=== PATIENT | male | born 1955 | race Caucasian/White ===

== ENCOUNTER → 2023-10-01 12:21 | Outpatient (REF) | payer MEDICARE, SELFPAY ==
[2023-10-01 13:20] LABS: % Basophils 0.1 % (0-2); % Eosinophils 0.2 % (0-6); % Lymphocytes 90.3 % (20.5-51.1); % Monocytes 2.5 % (1.7-9.3); % Neutrophils 5.9 % (42.2-75.2); Absolute Basophils 0.1 10^3/uL (0-0.2); Absolute Eosinophils 0.2 10^3/uL (0-0.7); Absolute Immature Granulocytes 0.9 10^3/uL (0-0.05); Absolute Lymphocytes 84.4 10^3/uL (1.2-3.4); Absolute Monocytes 2.3 10^3/uL (0.1-0.6); Absolute Neutrophils 5.6 10^3/uL (1.4-6.5); Hematocrit 44.3 % (39.0-52.0); Hemoglobin 14.1 g/dL (13.0-18.0); Mean Corp Hgb Conc. 31.8 g/dL (33.0-37.0); Mean Corpuscular Hgb 27.8 pg (27.0-31.0); Mean Corpuscular Volume 87.4 fL (80.0-94.0); Mean Platelet Volume 8.8 fL (7.4-10.4); Nucleated Red Blood Cells % 0 % (-); Platelet Count 110 10^3/uL (130-400); Red Blood Cell Count 5.07 10^6/uL (4.70-6.10); Red Cell Dist. Width 14.8 % (11.5-14.5); White Blood Cell Count 93.4 10^3/uL (4.8-10.8)
[2023-10-01 13:51] LABS: ALT (SGPT) 33 U/L (0-50); AST (SGOT) 29 U/L (17-59); Albumin 4.5 g/dl (3.5-5.0); Alkaline Phosphatase 74 U/L (38-126); Blood Urea Nitrogen 25 mg/dl (9-20); Calcium 9.2 mg/dl (8.4-10.2); Carbon Dioxide 28 mmol/L (22-30); Chloride 105 mmol/L (98-107); Glucose 88 mg/dl (70-99); HDL Cholesterol 44 mg/dl; LDL Cholesterol, Calculated 148 mg/dl; Potassium 4.9 mmol/L (3.5-5.1); Sodium 137 mmol/L (135-145); Total Bilirubin 0.8 mg/dl (0.2-1.3); Total Cholesterol 220 mg/dl (50-199); Total Protein 6.4 g/dl (6.3-8.2); Triglyceride 140 mg/dl (10-149); Very Low Density Lipoprotein 28 mg/dl (0-30); eGFR 59.84
[2023-10-01 14:02] LABS: Urine Albumin Trace (Neg - Trace); Urine Bilirubin Negative (Negative); Urine Character Clear (Clear); Urine Color Yellow; Urine Glucose Negative (Negative); Urine Ketone Negative (Negative); Urine Leukocyte Negative (Negative); Urine Nitrite Negative (Negative); Urine Occult Blood Trace (Negative); Urine Specific Gravity 1.015 (<1.030); Urine Urobilinogen Negative (Neg - 1+)
[2023-10-01 14:18] LABS: PSA, Total - Screen 1.46 ng/ml (0.0-4.0); Urine Red Blood Cell 0-2 /HPF (0-2); Urine Squamous Cell 0-2 /LPF (Few); Urine White Cell 30-40 /HPF (0-5)
== END ==
LOC: REG 12:21
PROVIDERS: ATTENDING PHYSICIAN Internal Medicine
DX: Z12.5 Encounter for screening for malignant neoplasm of prostate (principal); C91.10 Chronic lymphocytic leukemia of B-cell type not having achieved remission; E78.5 Hyperlipidemia, unspecified; G47.30 Sleep apnea, unspecified
CPT/HCPCS: 36415; 80053; 80061; 81003; 81015; 85025; G0103

== ENCOUNTER → 2023-10-20 14:59 | Outpatient (REF) | payer MEDICARE, SELFPAY ==
[2023-10-20 16:01] LABS: Urine Albumin Negative (Neg - Trace); Urine Bilirubin Negative (Negative); Urine Character Clear (Clear); Urine Color Yellow; Urine Glucose Negative (Negative); Urine Ketone Negative (Negative); Urine Leukocyte Negative (Negative); Urine Nitrite Negative (Negative); Urine Occult Blood Negative (Negative); Urine Specific Gravity 1.015 (<1.030); Urine Urobilinogen Negative (Neg - 1+)
[2023-10-20 16:02] LABS: % Basophils 0.1 % (0-2); % Eosinophils 0.2 % (0-6); % Immature Granulocytes 0.9 % (0-0.5); % Lymphocytes 90.2 % (20.5-51.1); % Neutrophils 5.6 % (42.2-75.2); Absolute Basophils 0.1 10^3/uL (0-0.2); Absolute Eosinophils 0.2 10^3/uL (0-0.7); Absolute Immature Granulocytes 0.8 10^3/uL (0-0.05); Absolute Lymphocytes 83.4 10^3/uL (1.2-3.4); Absolute Monocytes 2.8 10^3/uL (0.1-0.6); Absolute Neutrophils 5.2 10^3/uL (1.4-6.5); Hematocrit 42.1 % (39.0-52.0); Hemoglobin 13.6 g/dL (13.0-18.0); Mean Corp Hgb Conc. 32.3 g/dL (33.0-37.0); Mean Corpuscular Hgb 27.8 pg (27.0-31.0); Mean Corpuscular Volume 85.9 fL (80.0-94.0); Mean Platelet Volume 8.7 fL (7.4-10.4); Nucleated Red Blood Cells % 0 % (-); Platelet Count 124 10^3/uL (130-400); Red Cell Dist. Width 14.8 % (11.5-14.5)
[2023-10-20 16:31] LABS: White Blood Cell Count 92.4 10^3/uL (4.8-10.8)
== END ==
LOC: REG 14:59
PROVIDERS: ATTENDING PHYSICIAN Internal Medicine
DX: C91.10 Chronic lymphocytic leukemia of B-cell type not having achieved remission (principal); D69.6 Thrombocytopenia, unspecified; R82.81 Pyuria
CPT/HCPCS: 36415; 81003; 85025

== ENCOUNTER → 2023-12-01 11:09 | Outpatient (REF) | payer MEDICARE, SELFPAY ==
[2023-12-01 11:35] LABS: % Basophils 0.1 % (0-2); % Eosinophils 0.2 % (0-6); % Immature Granulocytes 0.7 % (0-0.5); % Monocytes 2.6 % (1.7-9.3); % Neutrophils 5.4 % (42.2-75.2); Absolute Basophils 0.1 10^3/uL (0-0.2); Absolute Eosinophils 0.2 10^3/uL (0-0.7); Absolute Immature Granulocytes 0.7 10^3/uL (0-0.05); Absolute Lymphocytes 90.5 10^3/uL (1.2-3.4); Absolute Monocytes 2.6 10^3/uL (0.1-0.6); Absolute Neutrophils 5.5 10^3/uL (1.4-6.5); Hematocrit 44.2 % (39.0-52.0); Hemoglobin 14.3 g/dL (13.0-18.0); Mean Corp Hgb Conc. 32.4 g/dL (33.0-37.0); Mean Corpuscular Hgb 27.9 pg (27.0-31.0); Mean Corpuscular Volume 86.3 fL (80.0-94.0); Mean Platelet Volume 8.4 fL (7.4-10.4); Nucleated Red Blood Cells % 0 % (-); Platelet Count 107 10^3/uL (130-400); Red Blood Cell Count 5.12 10^6/uL (4.70-6.10); Red Cell Dist. Width 14.8 % (11.5-14.5); White Blood Cell Count 99.4 10^3/uL (4.8-10.8)
[2023-12-01 13:08] LABS: LDH 180 U/L (120-246)
[2023-12-03 13:00] LABS: Alpha 1 Globulin 0.29 g/dL (0.19-0.46); Alpha 2 Globulin 0.56 g/dL (0.48-1.05); Free Kappa Light Chains,Quant 7.37 mg/L (3.30-19.40); Free Lambda Light Chains,Quant 31.86 mg/L (5.71-26.30); IgA 27 mg/dL (68-408); IgG 350 mg/dL (768-1632); IgM <10 mg/dL (35-263); Immunofixation Electrophoresis IFE Done; Kappa/Lambda Fr Light Ratio 0.23 (0.26-1.65); Total Protein-Electrophoresis 6.1 g/dL (6.3-8.2)
== END ==
LOC: REG 11:09
PROVIDERS: ATTENDING PHYSICIAN Internal Medicine Hematology & Oncology; FAMILY PHYSICIAN Internal Medicine
DX: C91.10 Chronic lymphocytic leukemia of B-cell type not having achieved remission (principal)
CPT/HCPCS: 36415; 82784; 83521; 83615; 84155; 84165; 85025; 86334

== ENCOUNTER → 2023-12-18 20:46 | Outpatient (REF) | payer MEDICARE, SELFPAY | LOC: MRI 20:46 | PROVIDERS: ATTENDING PHYSICIAN Internal Medicine; FAMILY PHYSICIAN Internal Medicine | DX: M54.32 Sciatica, left side (principal) | CPT/HCPCS: 72148 ==

== ENCOUNTER → 2024-02-11 11:42 | Outpatient (REF) | payer MEDICARE, SELFPAY ==
[2024-02-11 12:54] LABS: ALT (SGPT) 19 U/L (0-50); AST (SGOT) 25 U/L (17-59); Albumin 4.5 g/dl (3.5-5.0); Alkaline Phosphatase 92 U/L (38-126); Blood Urea Nitrogen 24 mg/dl (9-20); Calcium 9.5 mg/dl (8.4-10.2); Carbon Dioxide 29 mmol/L (22-30); Chloride 104 mmol/L (98-107); Glucose 94 mg/dl (70-99); LDH 194 U/L (120-246); Potassium 4.6 mmol/L (3.5-5.1); Sodium 140 mmol/L (135-145); Total Protein 6.2 g/dl (6.3-8.2); eGFR 54.75
[2024-02-11 18:43] LABS: % Basophils 0.1 % (0-2); % Eosinophils 0.3 % (0-6); % Immature Granulocytes 1.4 % (0-0.5); % Lymphocytes 87.7 % (20.5-51.1); % Monocytes 3.5 % (1.7-9.3); Absolute Basophils 0.1 10^3/uL (0-0.2); Absolute Eosinophils 0.3 10^3/uL (0-0.7); Absolute Immature Granulocytes 1.2 10^3/uL (0-0.05); Absolute Lymphocytes 79.9 10^3/uL (1.2-3.4); Absolute Monocytes 3.2 10^3/uL (0.1-0.6); Absolute Neutrophils 6.5 10^3/uL (1.4-6.5); Hematocrit 41.5 % (39.0-52.0); Hemoglobin 13.5 g/dL (13.0-18.0); Mean Corp Hgb Conc. 32.5 g/dL (33.0-37.0); Mean Corpuscular Hgb 27.7 pg (27.0-31.0); Mean Platelet Volume 9.3 fL (7.4-10.4); Nucleated Red Blood Cells % 0 % (-); Platelet Count 136 10^3/uL (130-400); Red Blood Cell Count 4.88 10^6/uL (4.70-6.10); Red Cell Dist. Width 14.8 % (11.5-14.5); White Blood Cell Count 91.1 10^3/uL (4.8-10.8)
== END ==
LOC: REG 11:42
PROVIDERS: ATTENDING PHYSICIAN Internal Medicine Hematology & Oncology; FAMILY PHYSICIAN Internal Medicine
DX: C91.10 Chronic lymphocytic leukemia of B-cell type not having achieved remission (principal)
CPT/HCPCS: 36415; 80053; 83615; 85025

== ENCOUNTER → 2024-03-05 10:57 | Outpatient (REF) | payer MEDICARE, SELFPAY ==
[2024-03-05 12:47] LABS: Hematocrit 42.2 % (39.0-52.0); Hemoglobin 13.7 g/dL (13.0-18.0); Mean Corp Hgb Conc. 32.5 g/dL (33.0-37.0); Mean Corpuscular Volume 86.3 fL (80.0-94.0); Mean Platelet Volume 8.8 fL (7.4-10.4); Platelet Count 95 10^3/uL (130-400); Red Blood Cell Count 4.89 10^6/uL (4.70-6.10); Red Cell Dist. Width 15.1 % (11.5-14.5)
[2024-03-05 13:26] LABS: % Basophils 0.1 % (0-2); % Eosinophils 0.2 % (0-6); % Immature Granulocytes 0.7 % (0-0.5); % Lymphocytes 91.4 % (20.5-51.1); % Monocytes 2.9 % (1.7-9.3); % Neutrophils 4.7 % (42.2-75.2); Absolute Basophils 0.1 10^3/uL (0-0.2); Absolute Eosinophils 0.2 10^3/uL (0-0.7); Absolute Immature Granulocytes 0.8 10^3/uL (0-0.05); Absolute Lymphocytes 97.3 10^3/uL (1.2-3.4); Absolute Monocytes 3.1 10^3/uL (0.1-0.6); Absolute Neutrophils 5.1 10^3/uL (1.4-6.5); Nucleated Red Blood Cells % 0 % (-); White Blood Cell Count 106.4 10^3/uL (4.8-10.8)
== END ==
LOC: REG 10:57
PROVIDERS: ATTENDING PHYSICIAN Internal Medicine Hematology & Oncology; FAMILY PHYSICIAN Internal Medicine
DX: C91.10 Chronic lymphocytic leukemia of B-cell type not having achieved remission (principal)
CPT/HCPCS: 36415; 85025

== ENCOUNTER 2024-05-31 03:49 | Inpatient (IN) | payer MEDICARE, SELFPAY ==
[2024-05-30 22:15] VITALS: BP 161/105
[2024-05-30 22:30] VITALS: BP 166/93
--- NOTE | 2024-05-30 22:50 | ED.GENMED ---
History of Present Illness
<TRACIE Carcamo - Last Filed: 05/31/24 06:08>
General
Chief Complaint: Abdominal Symptoms
Source: patient and significant other
Exam Limitations: none
Time Seen by Provider: 05/30/24 22:21
Nursing documentation reviewed up to this point in time: agreed with
History of Present Illness
History of Present Illness:
Patient is a 68yo M w/ PMH of CLL who presents to ED w/ complaint of episodes of nausea x1mo. Reports 4 episodes that are precipitated by exertion where he feels gurgling in center of epigastric region that moves up into chest, coughing, weakness,
nausea, and sweating. Reports dry heaving but denies any vomiting. These episodes last a few minutes and resolve w/ rest. States he can feel episode coming on and could push himself into one. He reports an episode Friday and again today which
prompted visit to ER. Denies fatigue and any sxs in between episodes. He flew back from [place] on Friday w/ 2 connecting flights. He reports rhinorrhea and post-nasal drip that started yesterday. He had flu shot last week.
Review of Systems
<TRACIE Carcamo - Last Filed: 05/31/24 06:08>
Review of Systems
Constitutional: Denies fever, fatigue or chills
EENT: Reports sore throat and runny nose
Respiratory: Reports cough and trouble breathing
Cardiac: Reports diaphoresis; Denies chest pain or palpitations
ABD/GI: Reports nausea; Denies abdominal pain, vomiting, diarrhea or constipated
: Denies dysuria
Musculoskeletal: Denies joint pain or muscle pain
Skin: Denies itching
Neurological: Reports weakness; Denies dizzy or headache
Phy Exam
<TRACIE Carcamo - Last Filed: 05/31/24 06:08>
General Physical Exam
General Presentation: mild distress
General age: appears stated age
General Skin: warm and dry
General Habitus: normal
General Mental: alert
Cardiovascular Exam
Cardiovascular Exam: no edema, no gallop, no murmur and tachycardia
Pulmonary Exam
Pulmonary Exam: lungs clear, chest non tender and respiratory distress (pt unable to consistently speak in full sentences)
Gastrointestinal Exam
Gastrointestinal Exam: normal bowel sounds, non tender, soft and non distended
Neurological Exam
Neurological Exam: alert, oriented x3, no motor deficits, no sensory deficits and speech normal
Musculoskeletal Exam
Musculoskeletal Exam: no edema
Course
<ST Carlos AlbertoKS - Last Filed: 05/31/24 06:08>
Orders/Labs/Results
Orders:
Orders
05/30/24 23:13
CBC/With Diff [Complete Blood Count/With Diff] Urgent
CMP [Comprehensive Metabolic Panel] Urgent
05/30/24 23:51
0.9% Sodium Chloride 1000 ml [Nss] 1,000 ml IV BOLUS
05/31/24 00:00
CT Chest Pe Study Urgent
Reason For Exam: SOB
05/31/24 00:40
IgA Urgent
IgG Urgent
IgM Urgent
LDH Urgent
Protein Electrophoresis Reflex [S] Urgent
05/31/24 01:11
COVID-19 Antigen Urgent
Source: Nasal Swab
05/31/24 01:35
Piperacillin/Tazo 4.5 Gram [Zosyn] 4.5 gram in 100 ml IV NOW
05/31/24 03:12
EKG [Electrocardiogram (*1)] Urgent
Reason for Study: Shortness of Breath
05/31/24 03:32
Admit/Transfer Patient As Directed
Co-Sign Provider:
Level of Care: Inpatient admission
Assign to:: Telemetry
Physician / Group: Jamison
Diagnosis: Chest Pain, CLL
Reason for Telemetry: Chest Pain syndromes
Date to Stop Telemetry: 06/02/24
Time to Stop Telemetry: 11:00
Reason for Hospitalization: Chest Pain, CLL
Expected length of stay greater than two midnights?: Yes
ELOS- Estimated Length of Stay in days: 3
I certify the patient meets the requirements for IP care: Yes
Code Status As Directed
Resuscitation Status: Full Code
PRN Pain Medication Management As Directed
May give lesser potent ordered pain med per pt: Yes
preference::
Protocol:: Medication orders for pain may be administered in a
manner that supports deferring to patient preference
when the pt is:
- Requesting an ordered lesser potent pain medication.
Least to most potent pain medications are defined
as: acetaminophen < NSAID < tramadol < opioids
(morphine, oxycodone, hydromorphone).
- Requesting a lesser dose of the same medication IF
ORDERED.
- Requesting a less intrusive route of administration
if both routes are prescribed by the provider (PO <
IV).
05/31/24 03:58
Troponin I Urgent
05/31/24 05:57
Complete Blood Count/No Diff IN AM
Troponin I Q6H
Acetaminophen [Tylenol] 650 mg PO Q4HPRN PRN
Albuterol Nebs [Ventolin Nebules] 2.5 mg INH R Q4HPRN PRN
Nitroglycerin Sublingual [Nitrostat (Sublingual)] 0.4 mg SL [id number] PRN
Piperacillin/Tazo 3.375 Gram [Zosyn] 3.375 gram in 50 ml IV Q6H
05/31/24 05:57
Echo 2D MMode Doppler [Echo 2D MMode Color/Doppler] Routine
Reason for Study: SOB, Chest Pain
Glycohemoglobin (HgbA1c) Routine
Activity As Directed
Activity Level: Ambulate
EKG with chest pain [ECG as needed] As Directed
ECG as needed for:: Chest Pain
I/O [Intake/ Output] As Directed
Frequency: Per unit guidelines
Pneumatic Compression Sleeves As Directed
Type: Knee high
Vital Signs As Directed
Frequency: Per unit guidelines
Weight As Directed
Frequency: Daily
Oxygen Therapy [O2 Therapy] [RESP] Routine
Titrate/Wean O2 to maintain O2 sat greater than (%): 94
DX Deep Vein Thrombosis Video Routine
05/31/24 06:00
EKG [Electrocardiogram (*1)] IN AM
Reason for Study: Chest Pain
Clear Liquid
Basic Metabolic Panel IN AM
Cardiovascular Evaluation IN AM
05/31/24 08:00
Aspirin Chewable [Low Strength Aspirin] 81 mg PO DAILY
Pantoprazole [Protonix IV] 40 mg IV BID
05/31/24 11:57
Troponin I Q6H
05/31/24 17:57
Troponin I Q6H
05/31/24 22:00
Atorvastatin [Lipitor] 40 mg PO HS
06/02/24 11:00
DC Protocol for Telemetry ONCE
Abnormal Lab Results
05/30/24 05/31/24
23:13 00:40
WBC 125.2 H* 10^3/uL
(4.8-10.8)
RDW 15.8 H %
(11.5-14.5)
Plt Count 105 L 10^3/uL
(130-400)
Abs Immat Gran (auto) 1.2 H 10^3/uL
(0-0.05)
Absolute Neuts (auto) 7.0 H 10^3/uL
(1.4-6.5)
Absolute Lymphs (auto) 113.1 H 10^3/uL
(1.2-3.4)
Absolute Monos (auto) 3.6 H 10^3/uL
(0.1-0.6)
Immature Gran % 1.0 H %
(0-0.5)
Neutrophils % 5.5 L %
(42.2-75.2)
Lymphocytes % 90.3 H %
(20.5-51.1)
BUN 32 H mg/dl
(9-20)
Glucose 104 H mg/dl
(70-99)
Total Protein 6.0 L g/dl
(6.3-8.2)
Immunoglobulin A < 50 L mg/dl
(70-400)
Immunoglobulin G < 270 L mg/dl
(700-1600)
Immunoglobulin M < 25 L mg/dl
(40-230)
05/30/24 23:13
05/30/24 23:13
Vital Signs
Initial and Last Documented VS:
Initial Vital Signs
Temp Pulse Resp BP Pulse Ox
97.8 F 113 20 161/105 88
05/30/24 22:15 05/30/24 22:15 05/30/24 22:15 05/30/24 22:15 05/30/24 22:15
Last Documented Vital Signs
Temp Pulse Resp BP Pulse Ox
97.8 F 92 23 155/88 93
05/30/24 22:15 05/31/24 05:00 05/31/24 05:00 05/31/24 04:00 05/31/24 05:00
<Jurgen Santiago, DO - Last Filed: 05/31/24 01:44>
Orders/Labs/Results
Orders:
Orders
05/30/24 23:13
CBC/With Diff [Complete Blood Count/With Diff] Urgent
CMP [Comprehensive Metabolic Panel] Urgent
05/30/24 23:51
0.9% Sodium Chloride 1000 ml [Nss] 1,000 ml IV BOLUS
05/31/24 00:00
CT Chest Pe Study Urgent
Reason For Exam: SOB
05/31/24 00:40
IgA Urgent
IgG Urgent
IgM Urgent
LDH Urgent
Protein Electrophoresis Reflex [S] Urgent
05/31/24 01:11
COVID-19 Antigen Urgent
Source: Nasal Swab
05/31/24 01:35
Piperacillin/Tazo 4.5 Gram [Zosyn] 4.5 gram in 100 ml IV NOW
05/31/24 03:12
EKG [Electrocardiogram (*1)] Urgent
Reason for Study: Shortness of Breath
05/31/24 03:32
Admit/Transfer Patient As Directed
Co-Sign Provider:
Level of Care: Inpatient admission
Assign to:: Telemetry
Physician / Group: Jamison
Diagnosis: Chest Pain, CLL
Reason for Telemetry: Chest Pain syndromes
Date to Stop Telemetry: 06/02/24
Time to Stop Telemetry: 11:00
Reason for Hospitalization: Chest Pain, CLL
Expected length of stay greater than two midnights?: Yes
ELOS- Estimated Length of Stay in days: 3
I certify the patient meets the requirements for IP care: Yes
Code Status As Directed
Resuscitation Status: Full Code
PRN Pain Medication Management As Directed
May give lesser potent ordered pain med per pt: Yes
preference::
Protocol:: Medication orders for pain may be administered in a
manner that supports deferring to patient preference
when the pt is:
- Requesting an ordered lesser potent pain medication.
Least to most potent pain medications are defined
as: acetaminophen < NSAID < tramadol < opioids
(morphine, oxycodone, hydromorphone).
- Requesting a lesser dose of the same medication IF
ORDERED.
- Requesting a less intrusive route of administration
if both routes are prescribed by the provider (PO <
IV).
05/31/24 03:58
Troponin I Urgent
05/31/24 05:57
Complete Blood Count/No Diff IN AM
Troponin I Q6H
Acetaminophen [Tylenol] 650 mg PO Q4HPRN PRN
Albuterol Nebs [Ventolin Nebules] 2.5 mg INH R Q4HPRN PRN
Nitroglycerin Sublingual [Nitrostat (Sublingual)] 0.4 mg SL [id number] PRN
Piperacillin/Tazo 3.375 Gram [Zosyn] 3.375 gram in 50 ml IV Q6H
05/31/24 05:57
Echo 2D MMode Doppler [Echo 2D MMode Color/Doppler] Routine
Reason for Study: SOB, Chest Pain
Glycohemoglobin (HgbA1c) Routine
Activity As Directed
Activity Level: Ambulate
EKG with chest pain [ECG as needed] As Directed
ECG as needed for:: Chest Pain
I/O [Intake/ Output] As Directed
Frequency: Per unit guidelines
Pneumatic Compression Sleeves As Directed
Type: Knee high
Vital Signs As Directed
Frequency: Per unit guidelines
Weight As Directed
Frequency: Daily
Oxygen Therapy [O2 Therapy] [RESP] Routine
Titrate/Wean O2 to maintain O2 sat greater than (%): 94
DX Deep Vein Thrombosis Video Routine
05/31/24 06:00
EKG [Electrocardiogram (*1)] IN AM
Reason for Study: Chest Pain
Clear Liquid
Basic Metabolic Panel IN AM
Cardiovascular Evaluation IN AM
05/31/24 08:00
Aspirin Chewable [Low Strength Aspirin] 81 mg PO DAILY
Pantoprazole [Protonix IV] 40 mg IV BID
05/31/24 11:57
Troponin I Q6H
05/31/24 17:57
Troponin I Q6H
05/31/24 22:00
Atorvastatin [Lipitor] 40 mg PO HS
06/02/24 11:00
DC Protocol for Telemetry ONCE
Abnormal Lab Results
05/30/24 05/31/24
23:13 00:40
WBC 125.2 H* 10^3/uL
(4.8-10.8)
RDW 15.8 H %
(11.5-14.5)
Plt Count 105 L 10^3/uL
(130-400)
Abs Immat Gran (auto) 1.2 H 10^3/uL
(0-0.05)
Absolute Neuts (auto) 7.0 H 10^3/uL
(1.4-6.5)
Absolute Lymphs (auto) 113.1 H 10^3/uL
(1.2-3.4)
Absolute Monos (auto) 3.6 H 10^3/uL
(0.1-0.6)
Immature Gran % 1.0 H %
(0-0.5)
Neutrophils % 5.5 L %
(42.2-75.2)
Lymphocytes % 90.3 H %
(20.5-51.1)
BUN 32 H mg/dl
(9-20)
Glucose 104 H mg/dl
(70-99)
Total Protein 6.0 L g/dl
(6.3-8.2)
Immunoglobulin A < 50 L mg/dl
(70-400)
Immunoglobulin G < 270 L mg/dl
(700-1600)
Immunoglobulin M < 25 L mg/dl
(40-230)
05/30/24 23:13
05/30/24 23:13
Vital Signs
Initial and Last Documented VS:
Initial Vital Signs
Temp Pulse Resp BP Pulse Ox
97.8 F 113 20 161/105 88
05/30/24 22:15 05/30/24 22:15 05/30/24 22:15 05/30/24 22:15 05/30/24 22:15
Last Documented Vital Signs
Temp Pulse Resp BP Pulse Ox
97.8 F 92 23 155/88 93
05/30/24 22:15 05/31/24 05:00 05/31/24 05:00 05/31/24 04:00 05/31/24 05:00
<TRACIE Carcamo - Last Filed: 05/31/24 06:08>
MDM/Problems Addressed
Differential Diagnosis Includes:
PE, arrhythmia,
<TRACIE Carcamo - Last Filed: 05/31/24 06:08>
*Critical Care Note
Total Time (30-74mins, 75-104mins- exclusive of procedures): Not Applicable
<Jurgen Santiago DO - Last Filed: 05/31/24 01:44>
Update Note
Update Note:
CTA chest with intravenous contrast, pulmonary artery protocol
Comparison exam: None
IMPRESSION:
No definite evidence of pulmonary artery embolus. Assessment for smaller peripheral pulmonary embolus moderately limited due to motion artifact.
Moderate scattered patchy groundglass opacities bilaterally most pronounced in the lung bases concerning for infectious/inflammatory process.
Mild interstitial thickening noted.
Trace right pleural fluid versus pleural thickening.
Mild mediastinal, hilar, axillary and upper abdominal adenopathy.
Moderate coronary artery disease.
Esophageal wall thickening suggests esophagitis.
Small hiatal hernia.
Partially imaged presumed hepatic cysts.
Splenomegaly. The spleen is partially imaged.
Degenerative changes spine.
ED Attending Note
<TRACIE Carcamo - Last Filed: 05/31/24 06:08>
-
Portions of this chart may have been created with voice recognition software.� Occasional wrong word or��sound alike� substitutions may have occurred due to the inherent limitations of voice recognition software.
<Jurgen Santiago DO - Last Filed: 05/31/24 01:44>
ED Attending Note
Patient seen and examined by attending physician: Yes
I performed the substantive portion of visit, reviewed & personally made and approve the management plan that is documented in note by myself or ALEENA.: Yes
ED Attending Note:
This a pleasant 60-year-old male presents to the emergency department with several weeks of nausea on exertion. Patient states that on May 13, he was walking after parking his car to meet his at a restaurant. He states that he walks 6 or
7 blocks assisted having to stop and sit down. He states that he felt nausea and 'gurgling in his epigastric region '. He proceeded his walk to the restaurant after a 5-minute break. His noted that he was diaphoretic. Patient states that he
had no point had any chest pain. Patient reports that a similar episode happened several more times including the latest being tonight. Patient has a history of CLL followed by Dr. Ross. He states that he is receiving no active treatments he was
just being monitored and has an appointment this week. On Friday, he flew in from [place], spending much of the day either in the air or in airports. He states that he had a similar episode occur. Tonight he had an episode much like before.
He was at the grocery store and had to have his to come pick him up. She brought him for evaluation. Upon arrival he states that his symptoms had resolved. 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 He states that he has no issue getting through 1 of those. Tonight his room air oxygenation is 88% so he is receiving supplemental O2. Patient was seen in conjunction with the PA student. I
have reviewed and agree with the history and treatment plan presented. On my independent physical exam, patient is awake, alert, and oriented x3 in no acute distress resting on 2 L via nasal cannula. Heart is tachycardic at 104 on the monitor.
This is confirmed with auscultation. No murmurs rubs or gallops appreciated. Lungs are clear to auscultation bilaterally wheezes rales or rhonchi present. Abdomen is soft nontender nondistended. Skin is warm and dry. Moves all 4 extremities.
Calves are negative with no Homans' sign noted.
Plan is for CT angiogram of the chest to rule out pulmonary embolus. Lab work, which I expect to have an elevated white blood cell count due to CLL.
Discharge Plan
Departure
Patient Disposition: Admit
Date of Disposition: 05/31/24
Time of Disposition: 01:44
Admit to: Telemetry
Presentation/result/management discussed w/ accepting MD/DO: Hospitalist
Patient with high blood pressure during this ER visit?: Yes
Condition: Good
Discharge Problem:
Pneumonia
Interventions
Interventions:
*Risk Screen - Suicide Last Done: 05/30/24 22:15
*General Assessment Last Done: 05/30/24 22:15
*Neglect/Abuse Screening Last Done: 05/30/24 22:15
ED- Fall Risk Assessment Last Done: 05/30/24 23:19
*ED COVID-19 Vaccine History Last Done: 05/30/24 23:03
*Nursing Disposition Last Done: 05/31/24 05:51
HE-Txtbxy-Eiljiubtqt Assessment Last Done: 05/30/24 23:19
Discharge Date and Time
Discharge Date/Time: 05/31/24 05:51
[2024-05-30 23:00] VITALS: BP 145/87
[2024-05-30 23:03] VITALS: BMI 28.6
--- NOTE | 2024-05-30 23:24 | EDRN ---
Pt flew home from [place] on 2 flights two nights ago. Pt noted cold symptoms yesterday, runny nose. Pt says he went to [facility] this evening and while there, he developed a gurgling sensation in epigastric region that went up into center of his
chest like indigestion. Pt felt weak and sweaty. Pt had urge to vomit but only dry heaved. Pt notes the sensation is gone at this time. Pt says this is the 4th time he has had these symptoms since May 15 and they have all resolved with
rest. Pt denies fever/chills/cough, cp, sob, diarrhea/constipation, urinary symptoms, dizziness. Pt noted to have low pulse ox on room air in ED and was placed on 2 lpm O2. On oxygen, pulse ox is 92-94%.
[2024-05-30 23:34] LABS: Hematocrit 41.6 % (39.0-52.0); Hemoglobin 13.8 g/dL (13.0-18.0); Mean Corp Hgb Conc. 33.2 g/dL (33.0-37.0); Mean Corpuscular Hgb 27.7 pg (27.0-31.0); Mean Corpuscular Volume 83.4 fL (80.0-94.0); Mean Platelet Volume 8.5 fL (7.4-10.4); Platelet Count 105 10^3/uL (130-400); Red Blood Cell Count 4.99 10^6/uL (4.70-6.10); Red Cell Dist. Width 15.8 % (11.5-14.5); White Blood Cell Count 125.2 10^3/uL (4.8-10.8)
[2024-05-30 23:35] LABS: Nucleated Red Blood Cells % 0.1 % (-)
[2024-05-30 23:44] LABS: ALT (SGPT) 23 U/L (0-50); AST (SGOT) 26 U/L (17-59); Albumin 4.2 g/dl (3.5-5.0); Alkaline Phosphatase 62 U/L (38-126); Blood Urea Nitrogen 32 mg/dl (9-20); Calcium 9.6 mg/dl (8.4-10.2); Carbon Dioxide 22 mmol/L (22-30); Chloride 106 mmol/L (98-107); Estimated Creatinine Clearance 59 ml/min; Glucose 104 mg/dl (70-99); Potassium 3.9 mmol/L (3.5-5.1); Sodium 140 mmol/L (135-145); eGFR > 60.00
[2024-05-31] VITALS (26 sets, daily range): BP systolic 119–163; BP diastolic 75–104; BMI 28.3
[2024-05-31] MEDS: NSS 1000 IV (00:01)
[2024-05-31 01:03] LABS: % Basophils 0.1 % (0-2); % Eosinophils 0.2 % (0-6); % Lymphocytes 90.3 % (20.5-51.1); % Monocytes 2.9 % (1.7-9.3); % Neutrophils 5.5 % (42.2-75.2); Absolute Basophils 0.1 10^3/uL (0-0.2); Absolute Eosinophils 0.2 10^3/uL (0-0.7); Absolute Immature Granulocytes 1.2 10^3/uL (0-0.05); Absolute Lymphocytes 113.1 10^3/uL (1.2-3.4); Absolute Monocytes 3.6 10^3/uL (0.1-0.6)
[2024-05-31 01:29] LABS: LDH 219 U/L (120-246)
[2024-05-31 01:30] LABS: COVID-19 Antigen Negative (Negative)
--- NOTE | 2024-05-31 01:30 | EDRN ---
Pulse ox noted to be 87% room air - asked pt to put on his O2. No sob. Pt says he probably fell asleep
[2024-05-31] MEDS: ZOSYN 100 IV (01:40)
[2024-05-31 02:04] LABS: IgA < 50 mg/dl (70-400); IgG < 270 mg/dl (700-1600); IgM < 25 mg/dl (40-230)
--- NOTE | 2024-05-31 03:39 | HPS.HSE ---
Family Physician
-
Family Physician: Duy Bustillo
Chief Complaint
-
Chest Discomfort, Nausea
History of Present Illness
Patient is a 68y M with PMH significant for CLL who presents to ED complaining of multiple episodes of nausea, diaphoresis and fatigue over the past few weeks. Patient states that his initial episode occurred on 05/15. He had a very active day
- and very little to eat throughout the day. He was walking to a restaurant (parked about 6 blocks away) when he developed a burning sensation 'rising' in his chest. He felt SOB and diaphoretic. He had to stop walking and notes that he 'spit up'
some clear / mucus material. He rested on the curb for a while and recovered and was able to walk the rest of the way to the restaurant without issues. He had mild symptoms again on the way back to the car.
He then felt well for several days. On Monday 05/28, he golfed 18 holes with no issues / symptoms. He was walking through the airport when his symptoms occurred again. Similar to prior with burning chest discomfort, diaphoresis and 'spitting up'.
Again, symptoms resolved with time.
This evening, patient went to the grocery store and had another episode. Following this evening's episode, he presented to the ED for further evaluation and treatment.
Patient denies any similar symptoms / episodes prior to 05/15.
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
No new medications.
He has had runny nose / cold symptoms for the past 24 hours. No cough. No fevers / chills. No diarrhea or urinary complaints.
In the ED / at rest - patient feels well and has no complaints.
Medical History
Past Medical History
Past Medical History: Reports Other
Additional Past Medical History:
CLL
Dyslipidemia
Diverticular Disease
Past Surgical History: Reports Other
Additional Past Surgical History:
Bilateral Knee Arthroscopies
Hemorrhoidectomy
Social History
Tobacco: Non-smoker
Alcohol: None
Drug: None
Personal:
Living: With Family
Family History
Family History: Not pertinent
Allergies / Home Medications
Allergies reflects when Allergies were last updated in [employer].
Home Medications with original date entered in [employer]
Allergy/Medication List:
Allergies
Allergy/AdvReac Type Severity Reaction Status Date / Time
No Known Allergies Allergy Verified 05/30/24 23:04
Home Medications
Metamucil 1 tbsp PO DAILY 05/30/24
atorvastatin 40 mg tablet 40 mg PO HS 05/30/24
Review of Systems
-
History Source: Patient
A 12 point ROS was completed and negative except as noted: Yes
Constitutional: Reports Fatigue; Denies Fever or Chills
EENT: Denies Sore Throat
Respiratory: Reports Trouble Breathing; Denies Cough
Cardiac: Reports Chest Pain and Diaphoresis; Denies Palpitations or Syncope
Abdomen/GI: Reports Nausea and Vomiting; Denies Abdominal Pain, Diarrhea, Constipated, Bloody Stools, Black Stools or Anorexia
: Denies Dysuria, Frequency or Flank Pain
Musculoskeletal: Denies Joint Pain or Edema
Neurological: Denies Dizzy or Headache
Psych: Denies Depression or Anxiety
Physical Exam
Vital Signs
Vital Signs
Temp Pulse Resp BP Pulse Ox
97.8 F 70 23 143/85 91
05/30/24 22:15 05/31/24 03:00 05/31/24 03:00 05/31/24 03:00 05/31/24 03:00
Physical Exam
General: Other (68y M in no acute distress.)
HEENT: Moist mucous membranes, PERRLA and Other (No JVD.)
Respiratory: Other (Bibasilar rales about 1/3 up. No wheeze / rhonchi.)
Cardiac: S1/S2 and Regular Rhythm; No Murmur
GI: Soft, Non Tender, Non Distended and Normal Bowel Sounds
Musculoskeletal: No Clubbing, No Cyanosis and No Edema
Neuro: AO x 3
Laboratory Results
-
05/30/24 23:13
05/30/24 23:13
Laboratory Results
Total Bilirubin 1.0 mg/dl (0.2-1.3) 05/30/24 23:13
AST 26 U/L (17-59) 05/30/24 23:13
ALT 23 U/L (0-50) 05/30/24 23:13
Alkaline Phosphatase 62 U/L (38-126) 05/30/24 23:13
Impression/Plan
-
A/P: Patient is a 68y M with PMH significant for CLL who presents to ED complaining of chest pain, dyspnea and diaphoresis with exertion.
Chest Discomfort
Diaphoresis
SOB
- Admit for further evaluation and treatment.
- Broad differential for these symptoms at present including cardiac, GI, hematologic, etc.
- CTA done in the ED this evening was negative for PE.
- EKG unremarkable. Check troponin now and trend x 3 sets or to peak.
- ? mild CHF - potentially related to progression of CLL. Check Echo.
- Will continue Zosyn started in the ED for now - but would have low threshold to discontinue if patient remains afebrile, non-toxic, etc.
- Follow for any new / worsening symptoms.
- Consider GI or Cardiology evaluations depending on above results.
CLL
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
Chronic / Mild Thrombocytopenia
- WBC has been gradually rising over time. Now 125 with recent values 90-100k.
- Afebrile and non-toxic as noted above.
- Continue abx for now with hypogammaglobulinemia / immunocompromise.
- Hematology evaluation.
GERD / Esophagitis
- CT done in the ED shows distal esophagitis and many of described symptoms could be consistent with GI origin.
- IV PPI BID for now.
- Follow for any new / worsening symptoms.
- Consider GI evaluation if cardiac work-up, etc proves unremarkable.
Acute Hypoxemic Respiratory Insufficiency
- SpO2 in the ED was 88% on room air.
- No complaint of dyspnea at rest. No evidence for PE on CTA.
- Ground glass opacities at bases - ? inflammation or edema.
- IV abx for now as noted above.
- Check Echo and consider trial of diuresis.
- ? silent aspiration / reflux related.
- Continue O2 supplementation and wean as able.
DVT Prophylaxis: SCDs given thrombocytopenia
Code Status: Full
[2024-05-31 04:36] LABS: Troponin I 0.417 ng/ml
[2024-05-31] MEDS: LOW STRENGTH ASPIRIN 324 MG PO (04:59)
[2024-05-31 06:17] LABS: Hematocrit 39.8 % (39.0-52.0); Hemoglobin 13.2 g/dL (13.0-18.0); Mean Corp Hgb Conc. 33.2 g/dL (33.0-37.0); Mean Corpuscular Hgb 27.6 pg (27.0-31.0); Mean Corpuscular Volume 83.1 fL (80.0-94.0); Mean Platelet Volume 8.7 fL (7.4-10.4); Platelet Count 107 10^3/uL (130-400); Red Blood Cell Count 4.79 10^6/uL (4.70-6.10); Red Cell Dist. Width 15.8 % (11.5-14.5); White Blood Cell Count 125.5 10^3/uL (4.8-10.8)
[2024-05-31 06:45] LABS: Troponin I 0.373 ng/ml
[2024-05-31 06:51] LABS: Blood Urea Nitrogen 27 mg/dl (9-20); Calcium 9.1 mg/dl (8.4-10.2); Carbon Dioxide 23 mmol/L (22-30); Chloride 106 mmol/L (98-107); Estimated Creatinine Clearance 59 ml/min; Glucose 105 mg/dl (70-99); HDL Cholesterol 38 mg/dl; LDL Cholesterol, Calculated 120 mg/dl; Potassium 4.3 mmol/L (3.5-5.1); Sodium 141 mmol/L (135-145); Total Cholesterol 188 mg/dl (50-199); Triglyceride 154 mg/dl (10-149); Very Low Density Lipoprotein 30 mg/dl (0-30); eGFR > 60.00
[2024-05-31] MEDS: ZOSYN 50 IV ×3 (07:48→23:54)
[2024-05-31] MEDS: PROTONIX IV 40 MG IV ×2 (07:55→19:59)
[2024-05-31] MEDS: NSS (PRESERVATIVE FREE) 10 ML IV ×2 (07:56→19:59)
[2024-05-31] MEDS: LOW STRENGTH ASPIRIN 81 MG PO (07:56)
[2024-05-31 08:29] LABS: Glycohemoglobin (HgbA1c) 5.7 % (4.0-5.6)
--- NOTE | 2024-05-31 08:53 | CON.CAR ---
Addendum entered and electronically signed by Abner Mccurdy MD 05/31/24 10:27:
I saw and examined the patient.
The FUEL CELL BATTERY TECHNICIAN's note was reviewed and I agree with the note.
Comment: I am concerned that his new midepigastric/lower chest symptoms (4 episodes since May 15) represent ACS and this last episode is associated with abnormal troponin and likely represents ACS with small NSTEMI.
I favor cardiac catheterization and revascularization based upon anatomy.
If his cath shows no CAD then perhaps he has a GI etiology of his symptoms and an incidental troponin elevation from another cause. He reports a URI so we would have to hypothesize something like incidental myocarditis from a viral illness and new
GI disease. While possible I think CAD is more common then 2 unrelated illnesses.
Original Note:
Consultation
Consultation Request
Date/Time Consultation Requested: 05/31/2457
Date/Time Consultation Performed: 05/31/24809
Requesting Provider: Dr. Swift
Performing Provider: Serenity JAMES for Dr. Mccurdy
Reason for Consultation: chest discomfort
Medical History
-
Chief Complaint: epigastric discomfort, nausea, sweating
History of Present Illness:
68 y/o male with CLL (Dr. Ross, not on treatment at this time, just monitoring), dyslipidemia, HAYDEN (does not use CPAP) who is here for evaluation. Briefly, on May 15 he did Karate and walked his dog and felt fine, but later that evening he
was walking to dinner and after about 3 blocks, felt epigastric burning and had diaphoresis and dry heaves. The whole episode lasted about 10-15 minutes. He felt better after a glass of water, and walked town later and felt okay. However, it
recurred later that evening with walking and resolved with rest. He blamed that day on not eating or drinking enough. It happened one other time with exertion and resolved with rest, but he can't remember the details. He is quite active and
typically has felt fine. He was in [place] last week and was active walking without issue. However, last night around 930, he was walking through [place] and carrying some items and it came on again. Therefore, he came to the ER. He was seen to be
hypoxic at 88% and is on O2 by ME. He was started on IV abx and IV PPI. EKG shows SR with LAD and trop is 0.417 and trending down. He is in no distress at the time of my assessment. He has had a cold, but denies SOB.
Past Medical History
Past Medical History: Cancer (CLL), Hypercholesterolemia and Other (HAYDEN)
Social History
Tobacco: Non-Smoker
Alcohol: None
Personal:
Living: With Family
Family History
Family History: Reviewed & Not Pertinent (patient denies)
Allergies / Home Medications
Allergy/AdvReac Type Severity Reaction Status Date / Time
No Known Allergies Allergy Verified 05/30/24 23:04
�Medication �Instructions �Recorded �Confirmed �Type
Metamucil 1 tbsp PO DAILY 05/30/24 05/30/24 History
atorvastatin 40 mg tablet 40 mg PO HS 05/30/24 05/30/24 History
Review of Systems
-
History Source: Patient
All other systems: Negative unless noted
Cardiac: Chest Pain (epigastric burning) and Diaphoresis
Abdomen/GI: Vomiting (dry heaves)
Physical Exam
Vital Signs
Temp Pulse Resp BP Pulse Ox
98.2 F 74 16 119/88 96
05/31/24 07:00 05/31/24 07:00 05/31/24 07:00 05/31/24 07:00 05/31/24 07:00
Lab Results
05/31/24 06:09
05/31/24 06:09
Troponin I 0.373 ng/ml H* 05/31/24 06:09
Physical Exam
General: Well Developed, Well Nourished and No Apparent Distress
HEENT: Normocephalic and Anicteric
Respiratory: Other (coarse lung sounds to bases, on O2 by NC)
Musculoskeletal: No Edema
Skin: Warm and Dry
Neuro: AO x 3
Psych: Calm
Impression / Plan
-
Epigastric discomfort, dry heaves, diaphoretic episodes:
-currently CP free
-concern for ACS with his description and abnormal troponins- he has received ASA. We have recommended cardiac cath today and he is discussing with his . Risk factors of dyslipidemia and preDM.
-echo today
-also can consider GI etiology, but would assess for cardiac disease first as noted. Getting PPI.
Abnormal troponin:
-0.417, then trended down
-echo today
-NSTEMI versus acute non-ischemic myocardial injury in the setting of hypoxemia- w/u as above
Dyslipidemia:
-LDL 120, despite being on statin
-lets see what cath shows- if CAD noted, will need to increase dose
CLL:
-follow-up with oncology
Acute hypoxemic respiratory failure:
-on O2 by NC
-no SOB
-coarse lung sounds. On antibiotics. Per primary team.
-I do not suspect CHF at this time (no weight gain, edema, orthopnea)
HAYDEN:
-not treated as OP
-per IM
PreDM:
-should follow-up with PCP on this
Data Reviewed
-
EKG: Tracing Personally Visualized and interpreted (SR with LAD)
CT Scan: Report Reviewed by me (Chest CT: No evidence of pulmonary embolism or thoracic aortic dissection. Extensive scattered foci of groundglass opacity, most consistent with infectious or inflammatory pneumonitis. Underlying interstitial fibrosis
may be present at the lung bases. Right hilar lymphadenopathy, reactive...) and Other (moderate coronary artery calcification)
Medical Tests (Nuc Med, Echo etc): Other (echo ordered )
Labs: Labs Reviewed by me
--- NOTE | 2024-05-31 09:41 | W.PN.HOSP.TC ---
Today's Communication/Plan
-
For cardiac cath today
Assessment / Plan
Assessment / Plan
A/P: Patient is a 68y M with PMH significant for CLL who presents to ED complaining of chest pain, dyspnea and diaphoresis with exertion.
Chest Discomfort
Diaphoresis
SOB
- CTA done in the ED this evening was negative for PE.
- EKG unremarkable. Check troponin now and trend x 3 sets or to peak.
- Troponins peaked at 0.373
- Appreciate cardiology input, for cardiac catheterization today
- Continue aspirin 81 mg daily, atorvastatin 40 mg at bedtime
CLL
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
Chronic / Mild Thrombocytopenia
- WBC has been gradually rising over time. Now 125 with recent values 90-100k.
- Afebrile and non-toxic as noted above.
- Continue abx for now with hypogammaglobulinemia / immunocompromise.
- Await hematology consult
GERD / Esophagitis
- CT done in the ED shows distal esophagitis and many of described symptoms could be consistent with GI origin.
- IV PPI BID for now.
Acute Hypoxemic Respiratory Insufficiency
- SpO2 in the ED was 88% on room air, covid neg
- No complaint of dyspnea at rest. No evidence for PE on CTA.
- Ground glass opacities at bases - ? inflammation or edema.
- Was requiring 2 L of oxygen, now on room air
- Currently on IV Zosyn, consult pulmonology
DVT Prophylaxis: SCDs given thrombocytopenia
Code Status: Full
Physical Exam
General: No acute distress
HEENT: Normocephalic, Atraumatic, EOMI, MMM
Respiratory: Clear to Auscultation bilaterally
Cardiac: Normal S1/S2, Regular Rate and Rhythm
GI: Soft, Nontender, Nondistended, Normal Bowel Sounds
Extremities: No Clubbing, Cyanosis, or Edema
Neuro: Nonfocal/Grossly Intact
Psych: Calm, Cooperative
Derm: No Visible lesions
Anticipated Discharge: Within 24 hours
Subjective/Interval History
-
Date of Service: May 31, 2024
Patient reports epigastric discomfort, nausea, diaphoresis has resolved. Denies shortness of breath. No fever, no vomiting.
Objective Data
-
Labs:
Laboratory Results
05/30/24 05/31/24
23:13 06:09
WBC 125.2 H* 125.5 H*
Hgb 13.8 13.2
Hct 41.6 39.8
Plt Count 105 L 107 L
Sodium 140 141
Potassium 3.9 4.3
Chloride 106 106
Carbon Dioxide 22 23
BUN 32 H 27 H
Creatinine 1.2 1.2
Glucose 104 H 105 H
Calcium 9.6 9.1
Total Bilirubin 1.0
AST 26
ALT 23
Alkaline Phosphatase 62
Vital Signs:
Vital Signs
Temp Pulse Resp BP Pulse Ox
98.2 F 74 16 119/88 96
05/31/24 07:00 05/31/24 07:00 05/31/24 07:00 05/31/24 07:00 05/31/24 07:00
--- NOTE | 2024-05-31 10:28 | CON.PUL ---
Consultation
Consultation Request
Date/Time Consultation Requested: 05/31/2024944
Date/Time Consultation Performed: 05/31/2024 - 1015
Requesting Provider: Dr. Springer
Performing Provider: Dr. Coyle
Reason for Consultation: SOB + hypoxia
Medical History
-
Chief Complaint: Nausea with cold-like symptoms x few days
History of Present Illness:
68-year-old male non-smoker with a past medical history of CLL, HAYDEN not on treatment, dyslipidemia and history of colon polyps who presents with nausea and cold-like symptoms x few days. He reported that his initial episode of nausea and sweating
was on 05/15/2024. He stated symptoms in his chest felt like a burning sensation rising up. He felt SOB + diaphoretic. He spit up some clear mucus material. This occurred while walking to a restaurant after having a very active day and eating
little that day. Symptoms happen again after returning back to the car. His symptoms resolved and was able to resume activity without symptom recurrence (he even played golf on 05/28/2024). He then had another episode where he was walked to the
airport and then again on the evening prior to ER arrival when he was in the grocery store. 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 He endorses a runny nose with cold-like symptoms for 24 hours FINANCIAL ANALYSIS ADVISOR. No cough, fevers or chills. In the ER he
was afebrile to 97.8 �F, pulse rate 113, breathing at 20 breaths/min, BP 161/105 and saturating 88% on room air. 2 L/min applied and he improved his sats to 92-94%. Initial labs showed hyperleukocytosis to 125.2, Hb 13.8, thrombocytopenia to 105,
immunoglobulin deficiency with IgA <50, IgG <270 and IgM <25, and COVID antigen negative. CT chest shows no acute PE with extensive scattered groundglass opacities with right hilar lymphadenopathy. He was given IVF with NS 0.9% X1 liter + Zosyn in
the ER and then admitted to the hospitalist service for further management. Pulmonary service now consulted for shortness of breath, hypoxia and abnormal CT chest with groundglass opacities present.
When I saw the patient he had just came back from his left heart catheterization showing multivessel CAD with normal filling pressures with LVEDP: 13 mmHg. He is being worked up currently for a CABG. He continues to be on heparin drip, Lasix 40 mg
IV BID, as well as Toprol-XL. He is sitting in the chair no acute distress with at bedside. All questions were answered. He denies SOB and he says he feels tired. He still is recovering from a recent cold which started this past Friday
(05/29/2024). He had recently traveled back with his from [place] and got home this past Friday (05/28/2024). He does follow with oncology for his history of CLL (Dr. Ross). He has lost about 10 pounds in the last year and he is wondering
if a repeat sleep study should be done to reassess his HAYDEN severity.
Of note, patient previously followed with us in the office for history of HAYDEN. Last visit on 07/31/23 with ERIKA Lamb. He has history of moderate�severe HAYDEN and was not interested in continuing treatment with CPAP any longer. He had a
home sleep apnea test in August 2021 showing moderate HAYDEN with a respiratory event index of 23.8 events per hour with a wesley O2 saturation of 78%. Prior to that, he had a home sleep apnea test in September 2018 that showed severe HAYDEN with an
respiratory event index of 67.2 events per hour and a wesley O2 saturation of 67%. He was told to follow-up with our office as needed.
PMHx: Dyslipidemia, DJD (knees), history of colonic polyps, diverticular disease, HAYDEN, history of CLL
PSHx: Bilateral knee arthroscopies, partial medial meniscectomy, hemorrhoidectomy
Past Medical History
Past Medical History: Other (Above as per HPI)
Past Surgical History: Other (Above as per HPI)
Social History
Tobacco: Non-smoker
Alcohol: None
Drug: None
Personal:
Living: With Family
Family History
Family History: Reviewed & Not Pertinent
Allergies / Home Medications
Allergies
Allergy/AdvReac Type Severity Reaction Status Date / Time
No Known Allergies Allergy Verified 05/30/24 23:04
Home Medications
�Medication �Instructions �Recorded �Confirmed �Last Taken �Type
Metamucil 1 tbsp PO DAILY 05/30/24 05/30/24 Unknown History
atorvastatin 40 mg tablet 40 mg PO HS 05/30/24 05/30/24 Unknown History
Review of Systems
-
History Source: Patient
All other systems: Negative unless noted
Vitals / Labs / Diagnostic Testing
Vital Signs
Temp Pulse Resp BP Pulse Ox
97.5 F 82 16 146/86 95
05/31/24 11:00 05/31/24 11:00 05/31/24 11:00 05/31/24 11:00 05/31/24 11:00
Lab Data
05/31/24 06:09
05/31/24 06:09
Diagnostic Testing:
Physical Exam
-
HEENT: Normocephalic and Anicteric
Cardiovascular: S1/S2 and Peripheral Edema (negative)
Respiratory: Wheeze (negative), Rales (Bibasilar), Rhonchi (negative) and Non-Labored Respirations
GI: Soft, Non Distended, Non Tender and Normal Bowel Sounds
Neurology: AO x 3 and Tremors (negative)
Skin: Warm and Dry
General: Respiratory Distress (negative), Comfortable, Fever (negative) and Chills (negative)
Assessment
-
Assessment: 68-year-old male non-smoker with a PMHx of CLL, HAYDEN not on treatment, dyslipidemia and history of colon polyps who presents with nausea and cold-like symptoms x few days. His initial episode was on 05/15/2024 and he reported a burning
sensation starting in his abdomen and coming up to his chest. Symptoms occurred during exertion and improved with rest. Symptoms had resolved for some time and even played golf on 05/28/2024 with no symptoms at all. His episodes unfortunately
continued to occur and he came here to the ER for further evaluation. Initial labs showed hyperleukocytosis with WBC 125.2 and immunoglobulin deficiency. CTA chest was negative for an acute PE with extensive scattered groundglass opacities with
right hilar lymphadenopathy. Of note he recently flew from [place] back home on 05/28/2024 and caught a cold over the process that he is still recovering from. He was given antibiotics in the ER plus IVF and admitted to the hospitalist service.
Due to abnormal imaging with SOB and hypoxia pulmonary service consulted for additional management/recommendations.
Chronic conditions FINANCIAL ANALYSIS ADVISOR: Dyslipidemia, DJD (knees), history of colonic polyps, diverticular disease, HAYDEN, history of CLL
Impression:
#Abnormal CT chest with diffuse bilateral/perihilar groundglass opacities suspected to be intralobular septal thickening with bibasilar atelectasis likely due to acute pulmonary edema vs pneumonitis vs lymphangitic carcinomatosis
#Cold-like symptoms FINANCIAL ANALYSIS ADVISOR
#Exertional epigastric discomfort with nausea and diaphoresis suspicious for ACS
#Hyperleukocytosis likely due to history of CLL
#Immunoglobulin deficiency
#Thrombocytopenia (platelet count was 110 in September 2023)
#Elevated troponin with peak at 0.417 on 05/31/24)
#HAYDEN (moderate severity with overall AHI: 23.8 events/hr via HSAT in Jul 2021) non-compliant to CPAP
Plan:
- Doubtful this is an underlying ILD as upon personal view from prior whole-body PET/CT from 02/02/2024 there was no diffuse bilateral groundglass opacity seen, just subsegmental atelectasis and right upper lobe pneumonia
- Given his recent flu like symptoms, this could very well be a viral pneumonitis
- Echo obtained today (05/31/2024) showing mild concentric LVH with normal biventricular size and systolic function without regional WMA. PASP: 28 mmHg.
- Cardiology planning for [facility] to eval for obstructive CAD --> multivessel CAD with normal LV filling pressures; being worked up for CABG (CT surgery consulted)
- Ultimately he will need repeat CT chest without contrast in 4-6 weeks to assess for resolution of his GGO
- Maintain SpO2 >94% with supplemental O2 as needed
- Continue lipitor with goal LDL<70
- Incentive spirometer
- Replete electrolytes with K>4, Mg>2
- Continue to monitor H&H and transfuse to keep Hb >8g/dL; keep plt>50k given he is now on heparin gtt
- Follow-up SPEP; continue follow up with Oncology
- Maintain euglycemia with goal BG >100 and <180
- prn nebulized bronchodilators - not currently bronchospastic
- DVT ppx: heparin gtt
Pulmonary service will continue to follow along. Outpatient follow-up will also be arranged as last visit on 07/31/23 with ERIKA Lamb. He is interested in repeating a sleep study to reassess his severity +/- persistence of HAYDEN. He
ultimately is not interested in using PAP with sleep as he did not feel any better when he was using it previously. We did briefly discuss the inspire device.
Data:
CTA Chest 05/31/2024:
1. No evidence of pulmonary embolism or thoracic aortic dissection.
2. Extensive scattered foci of groundglass opacity, most consistent with infectious or inflammatory pneumonitis. Underlying interstitial fibrosis may be present at the lung bases.
3. Right hilar lymphadenopathy, reactive.
4. Moderate coronary arterial calcification. Please correlate with symptoms of and risk factors for coronary artery disease, with further workup as clinically appropriate.
Left heart catheterization 05/31/2024:
Conclusions:
1. Multi-vessel coronary artery disease including left main disease in setting of NSTEMI.
2. Normal LV filling pressure and no aortic stenosis.
Recommendations:
1. Expectant management after cardiac catheterization via right radial approach.
2. Given high syntax score with reasonable distal targets and no major surgical contraindications (note well controlled CLL), referral for coronary artery bypass grafting is appropriate with plan for grafts to the RPDA (if sufficient caliber), LPL,
LAD +/- D1. Given NSTEMI, patient should be revascularized prior to discharge.
3. Continue heparin, asa, statin, metoprolol. Do not give any P2Y12 inhibitors pending surgery.
4. Patient likely has HeHF given LDL 120 despite high intensity statin. Will need additional of ezetimibe+[id number] going forward for goal LDL <55. Aggressive management of diabetes and hypertension. Relatives should be screened in early age for
hyperlipidemia.
Total time spent today was 76 minutes for this encounter. Time includes reviewing laboratory test/imaging results, reviewing pertinent medical records, obtaining and reviewing medical history, performing an appropriate exam, ordering medications,
tests and procedures. Time also includes documentation of this encounter, coordinating patient care and communicating with other healthcare professionals. Total time does not include separately billed tests performed on this date of service.
--- NOTE | 2024-05-31 10:49 | CM ---
Pt seen bedside. Pt lives w/ spouse in a split level home, no steps to enter.
Independent, no DME use for daily functioning
Denies SNF hx
Denies VN/PT
Denies financial insecurities
Currently receiving OP therapy for other medical reason
Address, point of contact and insurances verified
PCP: Dr. Duy Bustillo
Pharmacy: [facility]
Per pt spouse will transport at d/c
Plan: Home no needs anticipated
[2024-05-31] MEDS: ZOSYN IV (12:52)
[2024-05-31 13:03] LABS: Troponin I 0.148 ng/ml
--- NOTE | 2024-05-31 15:11 | PTCARENOTE ---
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 monitor on , NSR. VSS. IVF infusing via left arm without difficulties. oriented to room and surroundings, family at bedside. CVPA in room. patient plt. count 107,
TT Krista Hernandez IN [employer] MEMBER aware, will start IV heparin gtt. at 1800 as ordered.
--- NOTE | 2024-05-31 16:05 | CONSULT.CT ---
Consultation
-
Date/Time Consultation Requested: 05/31/24
Date/Time Consultation Performed: 05/31/24 1606
Requesting Provider: Dr. Hao Casillas MD.
Performing Provider: Izabela Allan PA-C
Reason for Consultation: LM MV CAD, evaluate for coronary artery revascularization
Patient History
Physicians
Family Physician: Dr. Duy Bustillo MD
Outpatient Geomagnetician: None
Inpatient Geomagnetician: [facility]-Interventionalist, Dr. Hao Casillas MD.
History of Present Illness
Patient is extremely pleasant 68-year-old male with PMH of: CLL followed by Dr. Shane Ross MD., undergoing no current treatment, monitoring only. Patient denies any history of immunosuppression therapy, radiation, or chemotherapy. He also has a
PMH of hyperlipidemia, obstructive sleep apnea without CPAP, and prediabetes mellitus with hemoglobin A1c of 5.7.
Patient complains of multiple symptoms dating back to 05/15 consisting of chest discomfort/burning, nausea, diaphoresis, fatigue, and SOB/CHRISTINE. Symptoms were all present with exertion, and resolved with rest up until 05/30/2024. Symptoms continue to
intermittently progress with exertional activity. On the evening of 05/30/2024 patient was carrying groceries at [employer] when the epigastric discomfort represented. Patient was taken to [facility]'s emergency department by his .
Upon presentation to the emergency department patient was hypoxic with respiratory saturations of 88% and was placed on oxygen via 2 L nasal cannula.EKG revealed sinus rhythm at 77 bpm. Further workup revealed positive troponin's ruling the patient
in for NSTEMI with peak troponin of 0.417. Given the patient's CLL he was found to have a WBC of 125.2, and platelets of 105. Patient was admitted for further workup and cardiology was consulted. Subsequent cardiac catheterization revealed left
main multivessel coronary artery disease. CT surgery was consulted for coronary artery revascularization evaluation.
EK/04
SR 77 bpm
CTA-C: 05/31
Cystic lesion within the liver, 1.4 cm.
Extensive scattered groundglass opacities consistent with infectious/inflammatory pneumonitis
ECHO: 05/31
EF 60-65%
MV: mild MR
AV: normal
TV: trace TR
PV: trace MI
LVSD: 32
LVDD: 46
PAP's: 28
Catheterization: 05/[address] Smith full dictation for complete details summary is left main multivessel CAD including significant stenosis in the LAD, LCx, and RCA.
Past Medical History
Past Medical History: Other
CLL followed by Dr. Shane Ross MD., undergoing no current treatment, monitoring only. Patient denies any history of immunosuppression therapy, radiation, or chemotherapy.
Hyperlipidemia
Obstructive sleep apnea without CPAP
Prediabetes mellitus with hemoglobin A1c of 5.7.
Past Surgical History
Past Surgical History: Other
Bilateral knee scopes�2002
Repeat right knee scope�200
Hemorrhoid surgery 2013
Colonoscopies
Dental History
Noncontributory
Family History
Mother: at Age (90) and Cause of (Complications with dementia)
Father: at Age (68) and Cause of (History of PA, prostate cancer)
Family Medical History: CAD
Social History
Alcohol: None
Drug: None
Tobacco: Non-Smoker
Personal:
Living: With Spouse
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
Allergies
Allergy/AdvReac Type Severity Reaction Status Date / Time
No Known Allergies Allergy Verified 05/30/24 23:04
Home Medications
�Medication �Instructions �Recorded �Confirmed �Type
Metamucil 1 tbsp PO DAILY 05/30/24 05/30/24 History
atorvastatin 40 mg tablet 40 mg PO HS 05/30/24 05/30/24 History
Review of Systems
-
History Source: Patient
General: Reports Fatigue; Denies Fever, Weight Gain, Weight Loss or Chills
HEENT: Denies Visual Changes, Dysphagia, Hoarseness or Sore Throat
Respiratory: Reports SOB and CHRISTINE; Denies Cough, Asthma or PND
Cardiac: Reports Chest Pain, Nausea, Diaphoresis and Other (Dry heaves); Denies CAD, Known Vascular Disease, Palpitations, Vomiting or Edema
Abdomen/GI: Reports Nausea; Denies Abdominal Pain, Reflux, Indigestion, Vomiting, Diarrhea, Constipation, BRBPR or Ulcers
: Denies Dysuria, Frequency, Incontinence, Urgency or Hematuria
Musculoskeletal: Reports Myalgias; Denies Arthralgias, Joint Pain or Edema
Skin: Denies Itching or Rash
Neurological: Denies CVA, TIA, Headaches, Syncope, Dizzy, Numbness or Seizures
Vascular: Denies Claudication or PVD
Physical Exam
Vital Signs
Temp 98.4 F 05/31/24 14:13
Temp route: Oral 05/31/24 14:13
Pulse 88 05/31/24 14:15
Rhythm: Normal sinus rhythm 05/31/24 14:58
Resp Rate 16 05/31/24 14:13
Blood pressure 134/75 05/31/24 14:15
Blood pressure extremity used: Left upper arm 05/31/24 14:13
Position: Lying 05/31/24 14:13
MAP (cuff-Devika Monitor) 92 05/31/24 14:15
SaO2 94 05/31/24 14:58
Nasal Cannula flow liters per minute 2 05/31/24 08:29
Oxygen Mode of Delivery Room air 05/31/24 14:58
Oxygen modality: Room air 05/31/24 08:00
Can the patient verbally communicate their pain? Yes 05/31/24 14:58
Actual Weight 191 lb 9 oz 05/31/24 06:18
Body Mass Index (BMI) 28.3 05/31/24 06:18
Labs
05/31/24 06:09
05/31/24 06:09
Hemoglobin A1c 5.7 % (4.0-5.6) H 05/31/24 06:09
Troponin I 0.148 ng/ml H* D 05/31/24 12:31
Diagnostic Studies
EK/04
SR 77 bpm
CTA-C: 05/31
Cystic lesion within the liver, 1.4 cm.
Extensive scattered groundglass opacities consistent with infectious/inflammatory pneumonitis
ECHO: 05/31
EF 60-65%
MV: mild MR
AV: normal
TV: trace TR
PV: trace MI
LVSD: 32
LVDD: 46
PAP's: 28
Catheterization: 05/[address]ja
[address] Smith full dictation for complete details summary is left main multivessel CAD including significant stenosis in the LAD, LCx, and RCA.
Exam
General: Well Developed, Well Nourished, No Apparent Distress and Comfortable
HEENT: Normocephalic, Moist Mucous Membranes, Atraumatic, PERRLA and EOMI
Neck: Trachea Midline; Negative JVD or Carotid Bruit
Respiratory: Clear; Negative Wheezes, Crackles, Rhonchi or Accessory Muscle Use
Cardiac: S1/S2 and Regular Rhythm; Negative Murmur, Rub or Gallop
GI: Soft, Non Tender, Non Distended and Normal Bowel Sounds
Rectal: Deferred by Provider
Skin: Warm and Dry; Negative Rash
Neuro: AO x 3, No Motor Deficits and CN X-XII Intact
Extremities: Negative Upper Level Edema, Lower Level Edema, Upper Level Cyanosis, Lower Level Cyanosis, Upper Level Clubbing or Lower Level Clubbing
Psych: Calm
Assessment / Plan
-
Assessment:
68-year-old male with PMH:
CLL followed by Dr. Shane Ross MD., undergoing no current treatment, monitoring only. Patient denies any history of immunosuppression therapy, radiation, or chemotherapy.
Hyperlipidemia
Obstructive sleep apnea without CPAP
Prediabetes mellitus with hemoglobin A1c of 5.7.
Now found to have newly diagnosed:
Acute hypoxemic respiratory failure, sat's 88% requiring O2 via nasal cannula
NTEMI, peak troponin 0.417
LM MV CAD
Plan:
Patient's case will be discussed with attending physician.
STS risk stratification will be calculated when all available data is collected.
Consult Hematology/Oncology, Dr. Justine Warren MD.
Routine preoperative cardiothoracic surgery workup.
Further date regarding patient's surgical intervention will be determined after attending physicians full review.
Continue primary management per hospitalist service.
Continue heparin drip per cardiology.
--- NOTE | 2024-05-31 16:21 | ITS.CL.PN ---
Radiology Resident - Procedure Note
Procedure
Procedure Note:
CARDIAC CATHETERIZATION REPORT
Date of Procedure: 05/31/2024
Referring: Dr. Navjot Mccurdy MD
INDICATION: NSTEMI
PROCEDURE:
1. Left heart catheterization
2. Coronary angiography
ACCESS:
6 [place] right radial artery, closed with TR band
CATHETERS:
1. 6 [place] JR4
2. 6 [place] JL3.5
HEMODYNAMIC DATA
LV 155/2 (EDP 13) mmHg
AO 147/94 (mean 120) mmHg
CORONARY ANGIOGRAPHY
Dominance: right
LM: large vessel with a 70-80% mid-shaft stenosis with significant catheter dampening on engagement
LAD: large vessel that gives rise to a moderate caliber branching D1 and small D2. There is diffuse mild-moderate disease in the proximal portion of the LAD and it's branches. The mid-distal vessel is relatively disease free.
LCx: large vessel giving rise to a moderate caliber ramus/OM1, small OM2, moderate-caliber branching OM3, and large RPL branch. There is diffuse moderate-severe disease in the OM branches. There is a long 80% stenosis in the proximal portion of the
large RPL branch with the mid-distal vessel relatively disease free.
RCA: large vessel giving rise to several marginal branches, a small-moderate caliber RPDA, and several small RPL branches. There is a 80% stenosis in the proximal RCA, mild-moderate diffuse disease in the mid-RCA, and serial severe stenoses in the
distal RCA prior to the RPDA.
RADIATION:
Radiation (mGy): 600
DAP (cm2.Gy): 46
Fluoroscopy time (minutes): 4.5
CONCLUSIONS
1. Multi-vessel coronary artery disease including left main disease in setting of NSTEMI.
2. Normal LV filling pressure and no aortic stenosis.
RECOMMENDATIONS:
1. Expectant management after cardiac catheterization via right radial approach.
2. Given high syntax score with reasonable distal targets and no major surgical contraindications (note well controlled CLL), referral for coronary artery bypass grafting is appropriate with plan for grafts to the RPDA (if sufficient caliber), LPL,
LAD +/- D1. Given NSTEMI, patient should be revascularized prior to discharge.
3. Continue heparin, asa, statin, metoprolol. Do not give any P2Y12 inhibitors pending surgery.
4. Patient likely has HeHF given LDL 120 despite high intensity statin. Will need additional of ezetimibe+PCSK9i going forward for goal LDL <55. Aggressive management of diabetes and hypertension. Relatives should be screened in early age for
hyperlipidemia.
Copy to: Dr. Duy Bustillo MD
Signed: Hao Casillas MD, PhD
[2024-05-31] MEDS: KCL 20 MEQ PO (17:27)
[2024-05-31] MEDS: LASIX 40 MG IV (17:27)
[2024-05-31] MEDS: HEPARIN 25000 UNITS/250 ML IV (18:14)
[2024-05-31] MEDS: TOPROL XL 25 MG PO (19:59)
[2024-05-31 22:42] LABS: Glucose - Point of Care 112 mg/dl (70-99)
--- NOTE | 2024-05-31 23:45 | CON.ONC ---
Impression
Impression
CLL, without indication for treatment
Hypogammaglobulinemia without infections complication
Acute coronary syndrome
Plan
Plan
CLL not a contraindication for planned revascularization surgery
Thank you for consult, will follow along with you.
Patient History
History of Present Illness
Patient is a 68y M with PMH significant for CLL who presents to ED complaining of multiple episodes of nausea, diaphoresis and fatigue over the past few weeks. Patient states that his initial episode occurred on 05/15. He had a very active day
- and very little to eat throughout the day. He was walking to a restaurant (parked about 6 blocks away) when he developed a burning sensation 'rising' in his chest. He felt SOB and diaphoretic. He had to stop walking and notes that he 'spit up'
some clear / mucus material. He rested on the curb for a while and recovered and was able to walk the rest of the way to the restaurant without issues. He had mild symptoms again on the way back to the car.
He then felt well for several days. On Monday 05/28, he golfed 18 holes with no issues / symptoms. [place] when his symptoms occurred again. Similar to prior with burning chest discomfort, diaphoresis and 'spitting up'.
Again, symptoms resolved with time.
Last evening, patient went to the grocery store and had another episode. Following this evening's episode, he presented to the ED for further evaluation and treatment.
Patient denies any similar symptoms / episodes prior to 05/15.
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
He is followed by Dr. Ross for CLL, currently on expectant observation with recent [facility] consultation recommending same. Disease course has been complicated by quantitative hypogammaglobulinemia but without infectous complications.
Past-Medical/Surgical History
Past Medical History:
CLL
Dyslipidemia
Diverticular Disease
Past Surgical History:
Bilateral Knee Arthroscopies
Hemorrhoidectomy
Social History
Tobacco: Non-smoker
Alcohol: None
Drug: None
Personal:
Living: With Family
Family History
Family History: Not pertinent
Patient Medication
�Medication �Instructions �Recorded �Confirmed �Last Taken �Type
Metamucil 1 tbsp PO DAILY 05/30/24 05/30/24 Unknown History
atorvastatin 40 mg tablet 40 mg PO HS 05/30/24 05/30/24 Unknown History
Active Medications
Generic Name Dose Route Start Last Admin
Trade Name Freq PRN Reason Stop Dose Admin
Acetaminophen 650 mg 05/31/24 05:57
Acetaminophen 325 Mg Tablet PO 06/28/24 05:56
Q4HPRN PRN
Mild Pain / Temp > 101
Albuterol Sulfate 2.5 mg 05/31/24 05:57
Albuterol Nebs 2.5 Mg/3 Ml Ampul INH
R Q4HPRN PRN
SOB
Protocol
Aspirin 81 mg 05/31/24 08:00 05/31/24 07:56
Aspirin 81 Mg Chewable Tablet PO 06/28/24 07:59 81 mg
DAILY REJI Administration
Atorvastatin Calcium 40 mg 05/31/24 22:00
Atorvastatin (Lipitor) 40 Mg Tablet PO 06/28/24 21:59
HS REJI
Furosemide 40 mg 06/01/24 08:00
Furosemide 40 Mg (10 Mg/Ml) 4 Ml Vial IV 06/29/24 07:59
BID AT 0800,1600 REJI
Piperacillin Sod/Tazobactam Sod 3.375 gram in 50 mls @ 100 mls/hr 05/31/24 05:57 05/31/24 17:19
Zosyn IV 50 mls
Q6H REJI Administration
Sodium Chloride 1,000 mls @ 0 mls/hr 05/31/24 14:00
Nss IV 06/01/24 13:47
PER PROTOCOL REJI
Protocol
Per Protocol
Heparin Sodium 25,000 units in 250 mls @ 0 mls/hr 05/31/24 18:00 05/31/24 18:14
Heparin 22340 Units/250 Ml IV 250 mls
PER PROTOCOL REJI Administration
Protocol
Per Protocol
Metoclopramide HCl 10 mg 05/31/24 23:05
Metoclopramide 10 Mg/2 Ml Vial IV 06/28/24 23:04
Q6HPRN PRN
n/v
Metoprolol Succinate 25 mg 05/31/24 20:00 05/31/24 19:59
Metoprolol 25 Mg Extended Release Tablet PO 06/28/24 19:59 25 mg
BID REJI Administration
Nitroglycerin 0.4 mg 05/31/24 05:57
Nitroglycerin 0.4 Mg Sl Tablet SL 06/28/24 05:56
[id number] PRN
Chest Pain
Pantoprazole Sodium 40 mg 05/31/24 08:00 05/31/24 19:59
Pantoprazole Sodium 40 Mg/10 Ml Vial IV 06/28/24 07:59 40 mg
BID REJI Administration
Potassium Chloride 20 meq 06/01/24 08:00
Potassium Chloride 20 Meq Extended Release Tablet PO 06/29/24 07:59
BID REJI
Psyllium Hydrophilic Mucilloid 1 packet 06/01/24 08:00
Psyllium Packet PO 06/29/24 07:59
DAILY REJI
Sodium Chloride 0 flush 05/31/24 07:00
Sodium Chloride 0.9% (Flush) Syringe IV 06/28/24 06:59
PER PROTOCOL REJI
Sodium Chloride 10 ml 05/31/24 08:00 05/31/24 19:59
Sodium Chloride 0.9% (Preservative Free) 10 Ml Vial IV 06/28/24 07:59 10 ml
BID REJI Administration
Review of Systems
-
History Source: Patient, Family and Records
All Other Systems: Reviewed and Negative
Physical Exam
-
General: Well Developed and Well Nourished
HEENT: Moist Mucous Membranes; Negative Jaundice
Cardiology: Normal Sinus Rhythm, S1 and S2
Pulmonary: Clear; Negative Wheezes or Rales
GI: Soft
Musculoskeletal: No Clubbing, No Cyanosis and No Edema
Neurology: Non Focal
Skin: Warm and Dry
Hematologic / Lymphatic: No Lymphadenopathy
Psych: Calm
Labs
Lab Results
WBC 125.5 10^3/uL (4.8-10.8) H* 05/31/24 06:09
RBC 4.79 10^6/uL (4.70-6.10) 05/31/24 06:09
Hgb 13.2 g/dL (13.0-18.0) 05/31/24 06:09
Hct 39.8 % (39.0-52.0) 05/31/24 06:09
MCV 83.1 fL (80.0-94.0) 05/31/24 06:09
MCH 27.6 pg (27.0-31.0) 05/31/24 06:09
MCHC 33.2 g/dL (33.0-37.0) 05/31/24 06:09
RDW 15.8 % (11.5-14.5) H 05/31/24 06:09
Plt Count 107 10^3/uL (130-400) L 05/31/24 06:09
MPV 8.7 fL (7.4-10.4) 05/31/24 06:09
Abs Immat Gran (auto) 1.2 10^3/uL (0-0.05) H 05/30/24 23:13
Absolute Neuts (auto) 7.0 10^3/uL (1.4-6.5) H 05/30/24 23:13
Absolute Lymphs (auto) 113.1 10^3/uL (1.2-3.4) H 05/30/24 23:13
Absolute Monos (auto) 3.6 10^3/uL (0.1-0.6) H 05/30/24 23:13
Absolute Eos (auto) 0.2 10^3/uL (0-0.7) 05/30/24 23:13
Absolute Basos (auto) 0.1 10^3/uL (0-0.2) 05/30/24 23:13
Immature Gran % 1.0 % (0-0.5) H 05/30/24 23:13
Neutrophils % 5.5 % (42.2-75.2) L 05/30/24 23:13
Lymphocytes % 90.3 % (20.5-51.1) H 05/30/24 23:13
Monocytes % 2.9 % (1.7-9.3) 05/30/24 23:13
Eosinophils % 0.2 % (0-6) 05/30/24 23:13
Basophils % 0.1 % (0-2) 05/30/24 23:13
Creatinine 1.2 mg/dL (0.7-1.3) 05/31/24 06:09
Vital Signs
Vital Signs
Temp Pulse Resp BP Pulse Ox
99 F 85 20 137/78 96
05/31/24 22:46 05/31/24 23:00 05/31/24 22:46 05/31/24 22:34 05/31/24 22:46
[2024-05-31] MEDS: LIPITOR 40 MG PO (23:54)
--- NOTE | 2024-06-01 00:24 | PTCARENOTE ---
Patient ambulated self to the bathroom to urinate. Upon returning from the bathroom patient became nauseous and diaphoretic. Patient denies the following: no chest pain, no SOB, and no dizziness. BP 137/78, Temp 99, blood sugar 112. Patient sating
93% RA, this RN applied 2L for comfort. Shortly after obtaining vitals, pt reports the episode had passed. Ed Ramandeep TRAORE made aware, orders obtained for PRN Reglan. Patient denies any nausea at this time. Right radial dressing C/D/I, pt aware of
activity restrictions.IV Heparin gtt infusing--see flowsheet. POC ongoing. Call lui within reach.
[2024-06-01 00:36] LABS: APTT 31.2 Sec (23.4-35.0)
[2024-06-01 04:19] VITALS: BP 142/90
[2024-06-01 04:22] VITALS: BMI 27.4
[2024-06-01] MEDS: ZOSYN 50 IV (05:57)
[2024-06-01 06:55] VITALS: BP 130/75
[2024-06-01 07:33] LABS: Hematocrit 41.9 % (39.0-52.0); Hemoglobin 13.9 g/dL (13.0-18.0); Mean Corp Hgb Conc. 33.2 g/dL (33.0-37.0); Mean Corpuscular Volume 84.5 fL (80.0-94.0); Mean Platelet Volume 8.8 fL (7.4-10.4); Platelet Count 84 10^3/uL (130-400); Red Blood Cell Count 4.96 10^6/uL (4.70-6.10); Red Cell Dist. Width 15.7 % (11.5-14.5); White Blood Cell Count 132.2 10^3/uL (4.8-10.8)
[2024-06-01 07:41] LABS: APTT 28.5 Sec (23.4-35.0); INR 1.05; PT 13.5 Sec (11.4-14.6)
[2024-06-01] MEDS: METAMUCIL, KONSYL 1 PACKET PO (07:45)
[2024-06-01] MEDS: LOW STRENGTH ASPIRIN 81 MG PO (07:46)
[2024-06-01] MEDS: TOPROL XL 25 MG PO ×2 (07:46→19:34)
[2024-06-01] MEDS: KCL 20 MEQ PO (07:46)
[2024-06-01] MEDS: LASIX 40 MG IV ×2 (07:48→15:24)
[2024-06-01] MEDS: PROTONIX IV 40 MG IV (07:49)
[2024-06-01] MEDS: NSS (PRESERVATIVE FREE) 10 ML IV (07:49)
--- NOTE | 2024-06-01 07:59 | W.PN.CD ---
Today's Communication / Plan
-
cont. workup for CABG
Impression / Plan
-
Mr. Montano is a 68 year old man with past medical history of HLD, CLL (not on treatment), pre-DM, HAYDEN, admitted with several weeks of intermittent epigastric discomfort, found to have NSTEMI with [facility] 05/31/24 revealing severe multi-vessel CAD,
now undergoing workup for CABG.
# multi-vessel CAD
# NSTEMI
- currently symptom free
- troponin peak 0.417 on arrival
- TTE 05/31/24 unremarkable
- [facility] 05/31/24 with severe MV disease (obstructive disease in the RCA, LCx and LM)
- undergoing CABG workup
- cont. asa, metoprolol, atorvastatin 40, heparin
- filling pressure not significantly elevated on cath, should be cautious of excessive diuresis
# Dyslipidemia
- LDL 120, despite being on high intensity statin
- check Lp(a)
- will need addition of ezetimibe prior to discharge and outpatient initiation of PCSK9i for goal LDL<55 eventually
# CLL
- follow-up with oncology
# HAYDEN
- not treated as OP
- per IM
# PreDM
- should follow-up with PCP on this
TTE 05/31/24
Normal biventricular size and systolic function without regional wall motion
abnormality.
Mild concentric left ventricular hypertrophy.
Mild mitral regurgitation.
Aortic sclerosis without stenosis.
No prior study available for comparison.
[facility] 05/31/24
1. Multi-vessel coronary artery disease including left main disease in setting of NSTEMI.
2. Normal LV filling pressure and no aortic stenosis.
Physical Exam
Vital Signs/Labs
Vital Signs
Temp Pulse Resp BP Pulse Ox
36.6 C 80 18 130/75 94
06/01/24 06:57 06/01/24 07:48 06/01/24 06:57 06/01/24 07:48 06/01/24 06:57
05/31/24 06/01/24 06/02/24
06:59 06:59 06:59
Actual Weight 86.891 kg 84 kg
06/01/24 07:12
PT 13.5 Sec (11.4-14.6) 06/01/24 07:12
INR 1.05 06/01/24 07:12
APTT 28.5 Sec (23.4-35.0) 06/01/24 07:12
APTT Cancelled 06/01/24 07:12
Triglycerides 154 mg/dl (10-149) H 05/31/24 06:09
LDL Cholesterol, Calc 120 mg/dl 05/31/24 06:09
VLDL Cholesterol, Calc 30 mg/dl (0-30) 05/31/24 06:09
HDL Cholesterol 38 mg/dl 05/31/24 06:09
LAB Results
05/31/24 05/31/24 05/31/24
03:58 06:09 12:31
Troponin I 0.417 H* 0.373 H* 0.148 H* D
05/31/24
17:57
Troponin I Cancelled
Physical Exam
Constitutional: No acute distress
Cardiovascular: Rhythm & rate is regular, Pedal edema is absent, JVD pressure is normal, Systolic murmur absent and Diastolic murmur absent
Respiratory: Respiratory effort normal, Lungs clear to auscul. and Wheeze Absent
Neuro/Psych: AO x 3
Data Reviewed
-
Date of Service: June 01, 2024
Medical Decision Making: Reviewed Test Results
EKG: Report Reviewed by me
Echo: Report Reviewed by me
X-Ray/CT/US/MRI/NUC/PET: Report Reviewed by me
Labs: Labs Reviewed by me and Labs Ordered by me
--- NOTE | 2024-06-01 07:59 | W.PN.HOSP.TC ---
Today's Communication/Plan
-
see bold
Assessment / Plan
Assessment / Plan
A/P: Patient is a 68y M with PMH significant for CLL who presents to ED complaining of chest pain, dyspnea and diaphoresis with exertion.
Chest Discomfort
Diaphoresis
SOB
- CTA done in the ED this evening was negative for PE.
- EKG unremarkable. Check troponin now and trend x 3 sets or to peak.
- Troponins peaked at 0.373
- Appreciate cardiology input, 05/31 cardiac catheterization shows multivessel CAD
- Appreciate CT surgery input, plan for CABG on 06/[address] Wesley
- Continue aspirin 81 mg daily, atorvastatin 40 mg at bedtime
- Started on metoprolol succinate 25 mg twice a day, heparin drip, IV Lasix
CLL
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
Chronic / Mild Thrombocytopenia
- WBC has been gradually rising over time. Now 125 with recent values 90-100k.
- Afebrile and non-toxic as noted above.
- Continue abx for now with hypogammaglobulinemia / immunocompromise.
- Appreciate hematology input, okay to continue IV heparin as long as platelets greater than 50,000
GERD / Esophagitis
- CT done in the ED shows distal esophagitis and many of described symptoms could be consistent with GI origin.
- Change IV Protonix to Protonix 40 mg p.o. daily
Acute Hypoxemic Respiratory Insufficiency
Severe obstructive sleep apnea
- SpO2 in the ED was 88% on room air, covid neg
- No complaint of dyspnea at rest. No evidence for PE on CTA.
- Hypoxia resolved, currently on room air
- Appreciate pulmonology input, repeat chest CT in 4-6 weeks to assess for resolution of groundglass opacity
- Patient is afebrile, discontinue Zosyn, monitor
- Follow-up with pulmonology in the office outpatient for repeat sleep study, patient not interested in using PAP
DVT Prophylaxis: IV heparin drip
Code Status: Full
Updated at bedside 06/01
Total time spent to see the patient on the floor, examine the patient, review data and lab results, discuss treatment plan with patient, nursing staff around 50 minutes.
Physical Exam
General: No acute distress
HEENT: Normocephalic, Atraumatic, EOMI, MMM
Respiratory: Clear to Auscultation bilaterally
Cardiac: Normal S1/S2, Regular Rate and Rhythm
GI: Soft, Nontender, Nondistended, Normal Bowel Sounds
Extremities: No Clubbing, Cyanosis, or Edema
Neuro: Nonfocal/Grossly Intact
Psych: Calm, Cooperative
Anticipated Discharge: > 48 hours
Subjective/Interval History
-
Date of Service: June 01, 2024
Patient had diaphoresis/clamminess with exertion last evening. Resolved today. No chest pain, shortness of breath, or palpitations. No fever, no vomiting.
Objective Data
-
Labs:
Laboratory Results
06/01/24 06/01/24 06/01/24
00:14 07:12 07:12
WBC 132.2 H*
Hgb 13.9
Hct 41.9
Plt Count 84 L D
PT 13.5
INR 1.05
APTT 31.2 28.5 Cancelled
Sodium Pending
Potassium Pending
Chloride Pending
Carbon Dioxide Pending
BUN Pending
Creatinine Pending
Glucose Pending
Calcium Pending
Total Bilirubin Pending
AST Pending
ALT Pending
Alkaline Phosphatase Pending
Vital Signs:
Vital Signs
Temp Pulse Resp BP Pulse Ox
97.8 F 80 18 130/75 94
06/01/24 06:57 06/01/24 07:48 06/01/24 06:57 06/01/24 07:48 06/01/24 06:57
I&O
05/31/24 06/01/24 06/02/24
06:59 06:59 06:59
Intake Total 672 / 672
Output Total 2450 / 2450
Balance -1778 / -1778
--- NOTE | 2024-06-01 08:38 | PTCARENOTE ---
received patient this am, wanting to wash, informed patient that he cannot exert himself due to his episodes of nausea and diaphoresis on any kind of exertion. monitor shows NSR, IV heparin presently infusing at 1400units and hour, PLT count 84 this
am, Dr. Suarez, no further orders. WBC 132, Dr. Springer aware. patient for U/S, xrays this am.
[2024-06-01 08:40] LABS: ALT (SGPT) 23 U/L (0-50); AST (SGOT) 30 U/L (17-59); Albumin 4.7 g/dl (3.5-5.0); Alkaline Phosphatase 77 U/L (38-126); Blood Urea Nitrogen 27 mg/dl (9-20); Calcium 9.3 mg/dl (8.4-10.2); Carbon Dioxide 22 mmol/L (22-30); Chloride 101 mmol/L (98-107); Direct Bilirubin 0.3 mg/dl (0.0-0.4); Estimated Creatinine Clearance 51 ml/min; Glucose 103 mg/dl (70-99); Sodium 141 mmol/L (135-145); Total Bilirubin 2.2 mg/dl (0.2-1.3); Total Protein 6.6 g/dl (6.3-8.2); eGFR 54.75
--- NOTE | 2024-06-01 09:40 | W.PN.PUL3 ---
Today's Communication / Plan
-
Heparin drip
Repeat imaging with CT chest in about 4 to 6 weeks to follow-up groundglass opacities to resolution versus assess for persistence
Outpatient follow-up for PFTs
High intensity statin to keep goal LDL <70 (he is 120 currently)
CT surgery planning for CABG this upcoming - 06/03/2024
Pulmonary service will follow peripherally and we will see him in the CVICU postoperatively. Ultimately, outpatient follow-up will be arranged.
Assessment
-
Assessment: 68-year-old male non-smoker with a PMHx of CLL, HAYDEN not on treatment, dyslipidemia and history of colon polyps who presents with nausea and cold-like symptoms x few days. His initial episode was on 05/15/2024 and he reported a burning
sensation starting in his abdomen and coming up to his chest. Symptoms occurred during exertion and improved with rest. Symptoms had resolved for some time and even played golf on 05/28/2024 with no symptoms at all. His episodes unfortunately
continued to occur and he came here to the ER for further evaluation. Initial labs showed hyperleukocytosis with WBC 125.2 and immunoglobulin deficiency. CTA chest was negative for an acute PE with extensive scattered groundglass opacities with
right hilar lymphadenopathy. Of note he recently flew from [place] back home on 05/28/2024 and caught a cold over the process that he is still recovering from. He was given antibiotics in the ER plus IVF and admitted to the hospitalist service.
Due to abnormal imaging with SOB and hypoxia pulmonary service consulted for additional management/recommendations.
Chronic conditions [employer]: Dyslipidemia, DJD (knees), history of colonic polyps, diverticular disease, HAYDEN, history of CLL
Impression:
#Abnormal CT chest with diffuse bilateral/perihilar groundglass opacities suspected to be intralobular septal thickening with bibasilar atelectasis likely due to acute pulmonary edema vs pneumonitis vs lymphangitic carcinomatosis; given the LVEDP
from [facility] on 06/20 with WNL even prior to getting diuretics, I am less likely inclined to say that this is due to acute pulmonary edema
#Cold-like symptoms [employer]
#Exertional epigastric discomfort with nausea and diaphoresis suspicious for ACS
#Hyperleukocytosis likely due to history of CLL
#Immunoglobulin deficiency
#Thrombocytopenia (platelet count was 110 in September 2023)
#Elevated troponin with peak at 0.417 on 05/31/24)
#HAYDEN (moderate severity with overall AHI: 23.8 events/hr via HSAT in Jul 2021) non-compliant to CPAP
Plan:
- Doubtful this is an underlying ILD as upon prior review of previous whole-body PET/CT from 02/02/2024, there was no diffuse bilateral groundglass opacities seen, just subsegmental atelectasis and right upper lobe pneumonia
- Given his recent flu like symptoms, this could very well be a viral pneumonitis
- Echo obtained on 05/31/2024 showed mild concentric LVH with normal biventricular size and systolic function without regional WMA. PASP: 28 mmHg.
- Cardiology performed LHC on 05/31/2024 --> multivessel CAD with normal LV filling pressures; being worked up for CABG (CT surgery planning for 06/03/2024 procedure date)
- Ultimately he will need repeat CT chest without contrast in 4-6 weeks to assess for resolution of his GGO
- Maintain SpO2 >94% with supplemental O2 as needed
- Continue lipitor with goal LDL<70
- Incentive spirometer
- Replete electrolytes with K>4, Mg>2
- Continue to monitor H&H and transfuse to keep Hb >8g/dL; keep plt>50k given he is now on heparin gtt
- Follow-up SPEP; continue follow up with Oncology
- Maintain euglycemia with goal BG >100 and <180
- prn nebulized bronchodilators - not currently bronchospastic
- DVT ppx: heparin gtt
Pulmonary service will follow peripherally and will see him in the CVICU postoperatively. Ultimately, outpatient follow-up will be arranged as last visit on 07/31/2023 with ERIKA Lamb. He is interested in repeating a sleep study to
reassess his severity +/- persistence of HAYDEN. He ultimately is not interested in using PAP with sleep as he did not feel any better when he was using it previously. We did briefly discuss the Inspire device.
Data:
CTA Chest 05/31/2024:
1. No evidence of pulmonary embolism or thoracic aortic dissection.
2. Extensive scattered foci of groundglass opacity, most consistent with infectious or inflammatory pneumonitis. Underlying interstitial fibrosis may be present at the lung bases.
3. Right hilar lymphadenopathy, reactive.
4. Moderate coronary arterial calcification. Please correlate with symptoms of and risk factors for coronary artery disease, with further workup as clinically appropriate.
Left heart catheterization 05/31/2024:
Conclusions:
1. Multi-vessel coronary artery disease including left main disease in setting of NSTEMI.
2. Normal LV filling pressure and no aortic stenosis.
Recommendations:
1. Expectant management after cardiac catheterization via right radial approach.
2. Given high syntax score with reasonable distal targets and no major surgical contraindications (note well controlled CLL), referral for coronary artery bypass grafting is appropriate with plan for grafts to the RPDA (if sufficient caliber), LPL,
LAD +/- D1. Given NSTEMI, patient should be revascularized prior to discharge.
3. Continue heparin, asa, statin, metoprolol. Do not give any P2Y12 inhibitors pending surgery.
4. Patient likely has HeHF given LDL 120 despite high intensity statin. Will need additional of ezetimibe+PCSK9i going forward for goal LDL <55. Aggressive management of diabetes and hypertension. Relatives should be screened in early age for
hyperlipidemia.
Total time spent today was 36 minutes for this encounter. Time includes reviewing laboratory test/imaging results, reviewing pertinent medical records, obtaining and reviewing medical history, performing an appropriate exam, ordering medications,
tests and procedures. Time also includes documentation of this encounter, coordinating patient care and communicating with other healthcare professionals. Total time does not include separately billed tests performed on this date of service.
Subjective Data
-
Date of Service:
Date of Service: June 01, 2024
Chief Complaint: Pulmonary Follow Up
Subjective:
Seen and evaluated today at bedside. Multiple family friends at bedside and all questions were answered. Currently on room air breathing comfortably saturating 95% with heart rate 75 and BP 142/90. He has no complaints, denies shortness of
breath, chest pain, GAYTAN, abdominal pain, nausea, fevers or chills. He is very eager to leave the hospital and resume his daily activities.
Review of Systems
General: Other (Negative unless mentioned above)
Objective Data
Data Reviewed
Vital Signs / I&O / Oxygen:
Vital Signs
Temp Pulse Resp BP Pulse Ox
97.8 F 80 18 130/75 94
06/01/24 06:57 06/01/24 07:48 06/01/24 06:57 06/01/24 07:48 06/01/24 06:57
Intake and Output
05/31/24 06/01/24 06/02/24
06:59 06:59 06:59
Intake Total 672 / 672
Output Total 2450 / 2450
Balance -1778 / -1778
SaO2 94
Nasal Cannula flow liters per 2
minute
Physical Exam
General: Respiratory Distress (negative), Comfortable, Chills (negative) and Sweats (negative)
HEENT: Normocephalic, Anicteric and Moist Mucous Membranes
Cardiovascular: S1-S2, Murmur (negative) and Peripheral Edema (negative)
Respiratory: Wheeze (negative), Crackles (Right base), Rhonchi (negative) and Non-Labored Respirations
GI: Soft, Non Distended, Non Tender and Normal Bowel Sounds
Neurology: AO x 3 and Tremors (negative)
Skin: Warm, Dry, Cyanosis (negative) and Jaundice (negative)
Labs/Micro/Reports
Lab Data
06/01/24 07:12
06/01/24 07:12
Laboratory Results
06/01/24 06/01/24 06/01/24
00:14 07:12 07:12
PT 13.5
INR 1.05
APTT 31.2 28.5 Cancelled
--- NOTE | 2024-06-01 10:02 | W.PN.UPDATE ---
Update Note
Progress Note Update
Ongoing preoperative workup. Patient is tentatively on the schedule for 06/[address] Wesley
--- NOTE | 2024-06-01 10:30 | W.PN.UPDATE ---
Update Note
Progress Note Update
Platelet count of 84 noted, no hematologic contraindication to continuing heparin (goal platelet count > 50.)
Plans for 06/[address] Wesley noted
Will follow peripherally
[2024-06-01] MEDS: HEPARIN 25000 UNITS/250 ML IV (12:41)
--- NOTE | 2024-06-01 13:12 | W.PN.UPDATE ---
Update Note
Progress Note Update
Procedure Type:�Isolated CABG
PERIOPERATIVE OUTCOME ESTIMATE %
Operative Mortality 2.8%
Morbidity & Mortality 9.68%
Stroke 1.27%
Renal Failure 1.51%
Reoperation 2.99%
Prolonged Ventilation 5.55%
Deep Sternal Wound Infection 0.141%
Long Hospital Stay (>14 days) 4.78%
Short Hospital Stay (<6 days)* 47.7%
Clinical Summary
Planned Surgery: Isolated CABG, Urgent, First cardiovascular surgery
Demographics: 68 year old, White, male, 87kg, 175cm, BMI: 28.4 kg/m�
Lab Values: Creatinine: 1.2 mg/dL, Hematocrit: 39.8%, WBC Count: 99.99 10�/�L, Platelet Count: 238959 cells/�L
Substance Abuse: Never smoker
Risk Factors / Comorbidities: Cancer <=5 yrs, Family Hx of CAD
Pulmonary RF: Sleep Apnea
Cardiac Status: Ejection Fraction = 65%
Coronary Artery Disease: 3 vessels diseased, Left Main Stenosis >=50%, Non-ST Elevation MN, MN: 1 to 7 Days
Valve Disease: Mild MR, Trivial/Trace TR
--- NOTE | 2024-06-01 14:31 | PTCARENOTE ---
limb restriction bracelet put on left arm. INT from left arm removed and restarted in right upper arm #22P, IV heparin @ 1400units/hr, PTT obtained and sent to lab.
[2024-06-01 14:44] LABS: APTT 48.1 Sec (23.4-35.0)
[2024-06-01 15:23] VITALS: BP 147/84
[2024-06-01 15:24] VITALS: BP 147/84
[2024-06-01 19:27] VITALS: BP 146/82
[2024-06-01 22:07] VITALS: BP 151/83
--- NOTE | 2024-06-01 22:08 | W.PN.UPDATE ---
Update Note
Progress Note Update
-at approx 9pm evaluated R radial site after RN held pressure for 15 min. Pt has soft small-mod size hematoma with 2+ radial pulse. R hand is pink with brisk capillary refill, full ROM, and intact sensation. SBP 140s. Placed pressure with Kerlex and
tight mary carmen wrap over R forearm.
-Rechecked R radial site at 10 pm- hematoma felt slightly harder - RN held another 20 min pressure and we placed tight mary carmen wrap to keep overnight. BP 151/83 hr 79 nsr.
-discussed with Dr. Casillas - will stop iv Heparin and check US in am
-will monitor overnight
[2024-06-01] MEDS: LIPITOR 40 MG PO (22:15)
--- NOTE | 2024-06-01 23:18 | PTCARENOTE ---
Assumed care of patient at change of shift. At approx 19:05 this RN assessed patients IV heparin gtt along w/ his right radial site. Upon assessment patient had developed a hematoma in his right lower forearm. Patient was unaware and denied
aggravating site. Denies any numbness or tingling. Patient w/ positive radial pulse and adequate cap refill. This RN immediately held 10 mins of manual pressure. Gabriela Leonardo CV PA made aware and instructed RN to hold an additional pressure to
site. Gabriela TRAORE at bedside--see PAs note for further information.
IV Heparin gtt currently d/c'd per order. Right arm wrapped w/ mary carmen bandage. Patient aware of activity restrictions, and verbalized understanding. Patient instructed to notify RN if any changes to that site. Patient denies any pain or discomfort at
this time. Tele remains NSR. POC ongoing. Call lui within reach.
[2024-06-01] MEDS: TYLENOL 650 MG PO (23:40)
[2024-06-02] VITALS (8 sets, daily range): BP systolic 153–197; BP diastolic 75–117; BMI 27.1
[2024-06-02 04:25] LABS: Hematocrit 41.9 % (39.0-52.0); Hemoglobin 13.9 g/dL (13.0-18.0); Mean Corp Hgb Conc. 33.2 g/dL (33.0-37.0); Mean Corpuscular Hgb 28.1 pg (27.0-31.0); Mean Corpuscular Volume 84.8 fL (80.0-94.0); Mean Platelet Volume 8.3 fL (7.4-10.4); Platelet Count 97 10^3/uL (130-400); Red Blood Cell Count 4.94 10^6/uL (4.70-6.10); Red Cell Dist. Width 15.7 % (11.5-14.5); White Blood Cell Count 137.3 10^3/uL (4.8-10.8)
[2024-06-02 04:43] LABS: Blood Urea Nitrogen 42 mg/dl (9-20); Calcium 9.3 mg/dl (8.4-10.2); Carbon Dioxide 23 mmol/L (22-30); Chloride 101 mmol/L (98-107); Estimated Creatinine Clearance 44 ml/min; Glucose 100 mg/dl (70-99); Potassium 3.6 mmol/L (3.5-5.1); Sodium 142 mmol/L (135-145); eGFR 46.64
--- NOTE | 2024-06-02 07:41 | PTCARENOTE ---
Addendum entered by Theresa Montez RN 06/02/24 09:28:
NSR is noted on the monitor.
Original Note:
Patient aaox3, vss, 95% on RA. Right wrist/arm mary carmen wrap with pressure dressing intact. Rt hand has +1-2 edema, a positive right radial pulse is noted. Elevate his arm on a pillow. Awaiting on US of right wrist.
[2024-06-02] MEDS: PROTONIX 40 MG PO (07:51)
[2024-06-02] MEDS: LOW STRENGTH ASPIRIN 81 MG PO (07:51)
[2024-06-02] MEDS: METAMUCIL, KONSYL 1 PACKET PO (07:51)
[2024-06-02] MEDS: FLUSH (NSS) 1 FLUSH IV (07:51)
[2024-06-02] MEDS: TOPROL XL 25 MG PO ×2 (07:51→20:50)
--- NOTE | 2024-06-02 09:13 | W.PN.HOSP.TC ---
Today's Communication/Plan
-
see bold
Assessment / Plan
Assessment / Plan
A/P: Patient is a 68y M with PMH significant for CLL who presents to ED complaining of chest pain, dyspnea and diaphoresis with exertion.
Chest Discomfort
Diaphoresis
SOB
- CTA done in the ED this evening was negative for PE.
- EKG unremarkable. Check troponin now and trend x 3 sets or to peak.
- Troponins peaked at 0.373
- Appreciate cardiology input, 05/31 cardiac catheterization shows multivessel CAD
- Appreciate CT surgery input, plan for CABG on 06/[address] Wesley
- Continue aspirin 81 mg daily, atorvastatin 40 mg at bedtime
- Started on metoprolol succinate 25 mg twice a day
- Heparin drip discontinued 06/01 PM secondary to right wrist hematoma
Acute kidney injury
-From overdiuresis
-IV Lasix discontinued
-Patient encouraged to drink oral fluids, for repeat BMP at 1 PM
-Low threshold for lactated Ringer's IV fluids if creatinine still elevated
Right wrist hematoma from catheterization site
-IV heparin drip discontinued 06/01 PM, monitor
CLL
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
Chronic / Mild Thrombocytopenia
- WBC has been gradually rising over time. Now 125 with recent values 90-100k.
- Afebrile and non-toxic as noted above.
- Continue abx for now with hypogammaglobulinemia / immunocompromise.
- Appreciate hematology input, okay to continue IV heparin as long as platelets greater than 50,000
Acute Hypoxemic Respiratory Insufficiency
Severe obstructive sleep apnea
- SpO2 in the ED was 88% on room air, covid neg
- No complaint of dyspnea at rest. No evidence for PE on CTA.
- Hypoxia resolved, currently on room air
- Appreciate pulmonology input, repeat chest CT in 4-6 weeks to assess for resolution of groundglass opacity
- Patient is afebrile, discontinued Zosyn, monitor off antibiotics
- Follow-up with pulmonology in the office outpatient for repeat sleep study, patient not interested in using PAP
GERD / Esophagitis
- CT done in the ED shows distal esophagitis and many of described symptoms could be consistent with GI origin.
- Continue Protonix 40 mg p.o. daily
DVT Prophylaxis: SCDs
Code Status: Full
Updated at bedside 06/02
Total time spent to see the patient on the floor, examine the patient, review data and lab results, discuss treatment plan with patient, nursing staff around 50 minutes.
Physical Exam
General: No acute distress
HEENT: Normocephalic, Atraumatic, EOMI, MMM
Respiratory: Clear to Auscultation bilaterally
Cardiac: Normal S1/S2, Regular Rate and Rhythm
GI: Soft, Nontender, Nondistended, Normal Bowel Sounds
Extremities: No Clubbing, Cyanosis, or Edema
Right wrist hematoma noted
Neuro: Nonfocal/Grossly Intact
Psych: Calm, Cooperative
Anticipated Discharge: > 48 hours
Subjective/Interval History
-
Date of Service: June 02, 2024
Patient has a right wrist hematoma at his catheterization site. Denies chest pain, shortness of breath. He does have dyspnea with activity. No fever, no vomiting.
Objective Data
-
Labs:
Laboratory Results
06/01/24 06/02/24
21:00 04:02
WBC 137.3 H*
Hgb 13.9
Hct 41.9
Plt Count 97 L
APTT Cancelled
Sodium 142
Potassium 3.6
Chloride 101
Carbon Dioxide 23
BUN 42 H
Creatinine 1.6 H
Glucose 100 H
Calcium 9.3
Vital Signs:
Vital Signs
Temp Pulse Resp BP Pulse Ox
98.0 F 74 18 158/84 95
06/02/24 07:00 06/02/24 07:03 06/02/24 07:00 06/02/24 07:03 06/02/24 07:00
I&O
06/01/24 06/02/24 06/03/24
06:59 06:59 06:59
Intake Total 672 / 672 432 / 432
Output Total 2450 / 2450 1300 / 1300 300 / 300
Balance -1778 / -1778 -868 / -868 -300 / -300
--- NOTE | 2024-06-02 10:18 | W.PN.CD ---
Today's Communication / Plan
-
- f/u on radial U/S pending
- Stop heparin
- Surgical planning
Impression / Plan
-
Mr. Montano is a 68 year old man with past medical history of HLD, CLL (not on treatment), pre-DM, HAYDEN, admitted with several weeks of intermittent epigastric/lower sternal discomfort, found to have NSTEMI with [facility] 05/31/24 revealing severe
multi-vessel CAD, now undergoing workup for CABG.
Right radial site hematoma
- Good pulse, pain ok, hematoma largely improved
- radial U/S pending
AKILA likely from diuresis
- BUN/Cr elevation
- LVEDP was normal (13 mmHg) at cath, no heart failure, will stop Lasix
- Hydration via encouraging PO intake
NSTEMI, peak 0417, nml LVEF
Severe LM and 2V CAD, no clear culprit for his MS
Mixed hyperlipidemia
- Lp(a) pending, a new drug is in testing to see if lowering Lp(a) is of benefit...
- Goal LDL we chose to be < 55, came in on atorva with LDL well above 55, will plan rosuvastatin 40 + ezetimide 10 at hospital d/c
CLL
HAYDEN
Pre-DM
Elevated BP w/o dx of HTN
- LVH on echo suggest that he likely has HTN
HAYDEN, not on treatment
BMI 27
Subjective: No cp
TTE 05/31/24: Nml LV/RV syst fxn, no RWMA, mild cLVH/MR, AoV sclerosis =
[facility] 05/31/24: Multi-vessel CAD including left main disease in setting of NSTEMI. Normal LV filling pressure and no aortic stenosis.
Physical Exam
Vital Signs/Labs
Vital Signs
Temp Pulse Resp BP Pulse Ox
98.0 F 74 18 158/84 95
06/02/24 07:00 06/02/24 07:03 06/02/24 07:00 06/02/24 07:03 06/02/24 07:50
06/01/24 06/02/24 06/03/24
06:59 06:59 06:59
Actual Weight 84 kg 83.3 kg
06/02/24 04:02
06/02/24 04:02
PT 13.5 Sec (11.4-14.6) 06/01/24 07:12
INR 1.05 06/01/24 07:12
APTT Cancelled 06/01/24 21:00
Triglycerides 154 mg/dl (10-149) H 05/31/24 06:09
LDL Cholesterol, Calc 120 mg/dl 05/31/24 06:09
VLDL Cholesterol, Calc 30 mg/dl (0-30) 05/31/24 06:09
HDL Cholesterol 38 mg/dl 05/31/24 06:09
LAB Results
05/31/24 05/31/24 05/31/24
03:58 06:09 12:31
Troponin I 0.417 H* 0.373 H* 0.148 H* D
05/31/24
17:57
Troponin I Cancelled
Physical Exam
Constitutional: No acute distress
EENT: Anicteric
Cardiovascular: Rhythm & rate is regular and Pedal edema is absent
Respiratory: Respiratory effort normal and Lungs clear to auscul.
GI: Soft and Distention absent
Other: Cath Site (ecchymotic, good pulse, no pulsatile mass)
Data Reviewed
-
Date of Service: June 02, 2024
--- NOTE | 2024-06-02 11:41 | W.PN.UPDATE ---
Update Note
Progress Note Update
I had long discussion with Mr. Montano and his spouse. We discussed his current pathology and treatment plan. We went over the risks associated with surgery as well as the conduct. He understood and all questions were answered. Currently has an
AKILA, from diuresis for his pulmonary edema. Will trend out BMP, encourage oral intake, and decide whether IV fluids are needed. Tentative plan is for surgery in the form of CABG x 4 (ZURITA with radial and vein) and COURTNEY Clip tomorrow (06/03) with me as
first case.
Chadsvasc score of 3: Stroke risk was 3.2% per year in >90,000 patients (the [place] Atrial Fibrillation Cohort Study) and 4.6% risk of stroke/TIA/systemic embolism.
[2024-06-02 14:08] LABS: Blood Urea Nitrogen 43 mg/dl (9-20); Calcium 9.5 mg/dl (8.4-10.2); Carbon Dioxide 26 mmol/L (22-30); Chloride 100 mmol/L (98-107); Estimated Creatinine Clearance 54 ml/min; Glucose 85 mg/dl (70-99); Potassium 4.4 mmol/L (3.5-5.1); Sodium 137 mmol/L (135-145); eGFR 59.84
[2024-06-02] MEDS: OCEAN, SALINE MIST 2 SPRAYS NASAL ×3 (14:14→23:22)
--- NOTE | 2024-06-02 16:25 | CM ---
Reviewed chart. Met with and Mrs. Montano to review discharge plans. Prior to admission he resides with his spouse in a spilt level home with one step to enter. He has nine steps to each level. He has nine steps to get to bedroom/full
bathroom. Prior to admission he was independent with ambulation and adls. He does not have any DME in the home. He has a prescription plan and uses [facility]. Medical work-up in progress. The discharge plan is to return home with his spouse
and an home visit by the Transitional Care Nurse when medically stable.
We reviewed pre-op and post-op routines. We briefly reviewed the shower instructions. WE also reviewed restrictions including sternal precautions and driving restrictions. WE discussed a home visit by the Transitional Care Nurse. He is agreeable
to a home visit. The plan is for CABG on , 06/03/24.
[2024-06-02] MEDS: CRESTOR 40 MG PO (17:28)
--- NOTE | 2024-06-03 01:16 | PTCARENOTE ---
Tele rhythm shows SR. Patient remains chest pain free. 1st round of prep completed, and linens changed. Gabriela TRAORE checked prep work, and is aware of elevated BP. No new orders obtained at this time. Right radial dressing intact, and site
soft upon palpation. Right forearm ecchymotic near puncture site. Positive right radial pulse. Patient aware to maintain NPO status for CVOR in AM. Call lui within reach.
[2024-06-03 04:50] VITALS: BP 168/78
[2024-06-03] MEDS: PROTONIX 40 MG PO (05:21)
[2024-06-03] MEDS: BACTROBAN 2% OINTMENT 1 APPLIC NASAL ×2 (05:21→20:14)
[2024-06-03] MEDS: MAGNESIUM OXIDE 500 MG PO (05:21)
[2024-06-03] MEDS: LOPRESSOR 25 MG PO (05:21)
[2024-06-03 05:35] VITALS: BMI 27.1
[2024-06-03 05:40] LABS: Blood Urea Nitrogen 42 mg/dl (9-20); Calcium 9.4 mg/dl (8.4-10.2); Carbon Dioxide 24 mmol/L (22-30); Chloride 102 mmol/L (98-107); Estimated Creatinine Clearance 54 ml/min; Glucose 97 mg/dl (70-99); Sodium 138 mmol/L (135-145); eGFR 59.84
--- NOTE | 2024-06-03 06:21 | W.CVOR.SURPR ---
CVOR Surgeon Immed Pre Op
-
I have examined this patient prior to performance of the scheduled procedure.
The patient's condition is unchanged from the time of the dictated/written History and
Physical and the patient is able to undergo the scheduled procedure.
CABG + COURTNEY Clip
[2024-06-03 07:37] LABS: ACT+ - POC 134 Seconds (82-134)
[2024-06-03 08:16] LABS: Urine Albumin Trace (Neg - Trace); Urine Bilirubin Negative (Negative); Urine Character Clear (Clear); Urine Color Yellow; Urine Glucose Negative (Negative); Urine Ketone Negative (Negative); Urine Leukocyte Negative (Negative); Urine Nitrite Negative (Negative); Urine Occult Blood Trace (Negative); Urine Urobilinogen Negative (Neg - 1+)
--- NOTE | 2024-06-03 08:19 | CM ---
Reviewed chart. Mr. Montano is in the operating room today. Prior to admission he resides with is spouse in a spilt level home with one step to enter. He has nine steps to get to bedroom/full bathroom. Prior to admission he was independent with
ambulation and adls. He does not have any DME in the home. He has a prescription plan. Medical work-up in progress. The discharge plan is to return home with his spouse and home visit by the Transitional Care Nurse when medically stable.
[2024-06-03 08:34] LABS: Urine Mucus Many
[2024-06-03 08:35] LABS: Urine Squamous Cell 0-2 /LPF (Few)
[2024-06-03 08:36] LABS: Urine Amorphous Seen; Urine Granular Cast 0-2 /LPF (0); Urine Hyaline Cast 0-2 /LPF (0-2); Urine Red Blood Cell 0-2 /HPF (0-2); Urine White Cell 0-2 /HPF (0-5)
[2024-06-03 10:20] LABS: B.E. - POC -0.3 mmol/L; Glucose - POC 110 mg/dl (70-99); HCO3 - POC 24 mmol/L (21-28); Hematocrit - POC 42 % PCV (42-52); Hemodilution- POC No; Hemoglobin Calculated - POC 14.4; Ionized Calcium - POC 1.23 mmol/L (1.15-1.33); O2 Saturation %Calculated-POC 98.8 % (94-98); PCO2 - POC 38 mmHg (35-48); PO2 - POC 123 mmHg (83-108); POC Comment PRE; Sodium - POC 140 mmol/L (136-145); pH - POC 7.41 (7.35-7.45)
[2024-06-03 10:35] LABS: ACT+ - POC 660 Seconds (82-134)
[2024-06-03 10:48] LABS: B.E. - POC 3.7 mmol/L; Glucose - POC 107 mg/dl (70-99); HCO3 - POC 30 mmol/L (21-28); Hematocrit - POC 29 % PCV (42-52); Hemodilution- POC Yes; Hemoglobin Calculated - POC 9.9; Ionized Calcium - POC 1.06 mmol/L (1.15-1.33); O2 Saturation %Calculated-POC 99.9 % (94-98); PCO2 - POC 51 mmHg (35-48); PO2 - POC 353 mmHg (83-108); POC Comment CPB; Potassium - POC 5.6 mmol/L (3.5-5.1); Sodium - POC 135 mmol/L (136-145); pH - POC 7.37 (7.35-7.45)
[2024-06-03 11:03] LABS: ACT+ - POC 686 Seconds (82-134)
[2024-06-03 11:14] LABS: B.E. - POC 0.4 mmol/L; Glucose - POC 152 mg/dl (70-99); HCO3 - POC 26 mmol/L (21-28); Hematocrit - POC 32 % PCV (42-52); Hemodilution- POC Yes; Hemoglobin Calculated - POC 10.9; Ionized Calcium - POC 1.08 mmol/L (1.15-1.33); O2 Saturation %Calculated-POC 99.5 % (94-98); PCO2 - POC 43 mmHg (35-48); PO2 - POC 169 mmHg (83-108); POC Comment CPB; Potassium - POC 5.7 mmol/L (3.5-5.1); Sodium - POC 136 mmol/L (136-145); pH - POC 7.38 (7.35-7.45)
[2024-06-03 11:28] LABS: ACT+ - POC 708 Seconds (82-134)
[2024-06-03] MEDS: PROTONIX PO (11:35)
[2024-06-03] MEDS: OCEAN, SALINE MIST NASAL ×3 (11:35→17:26)
[2024-06-03] MEDS: LOW STRENGTH ASPIRIN PO (11:35)
[2024-06-03] MEDS: METAMUCIL, KONSYL PO (11:35)
[2024-06-03] MEDS: TOPROL XL PO (11:35)
--- NOTE | 2024-06-03 11:49 | CM ---
Chart reviewed. Patient is in the OR today. Patient is independent of ADLS, lives with his in a split level house, 0 ARTEM, 0 DME. Plan is for the patient to return home with CT Transitional RN. CM to follow
[2024-06-03 12:12] LABS: B.E. - POC 0.9 mmol/L; Glucose - POC 169 mg/dl (70-99); HCO3 - POC 27 mmol/L (21-28); Hematocrit - POC 34 % PCV (42-52); Hemodilution- POC Yes; Hemoglobin Calculated - POC 11.5; Ionized Calcium - POC 1.13 mmol/L (1.15-1.33); O2 Saturation %Calculated-POC 99.4 % (94-98); PCO2 - POC 49 mmHg (35-48); PO2 - POC 169 mmHg (83-108); POC Comment WARM; Potassium - POC 5.4 mmol/L (3.5-5.1); Sodium - POC 137 mmol/L (136-145); pH - POC 7.35 (7.35-7.45)
[2024-06-03 12:14] LABS: ACT+ - POC 118 Seconds (82-134)
[2024-06-03 12:30] LABS: ACT+ - POC 742 Seconds (82-134)
[2024-06-03 12:34] LABS: B.E. - POC -3.4 mmol/L; Glucose - POC 125 mg/dl (70-99); HCO3 - POC 24 mmol/L (21-28); Hematocrit - POC 30 % PCV (42-52); Hemodilution- POC Yes; Hemoglobin Calculated - POC 10.3; Ionized Calcium - POC 1.24 mmol/L (1.15-1.33); O2 Saturation %Calculated-POC 64.1 % (94-98); PCO2 - POC 50 mmHg (35-48); PO2 - POC 38 mmHg (83-108); POC Comment VENOUS; Potassium - POC 4.7 mmol/L (3.5-5.1); Sodium - POC 140 mmol/L (136-145); pH - POC 7.28 (7.35-7.45)
[2024-06-03 12:36] LABS: ACT+ - POC 98 Seconds (82-134)
[2024-06-03 12:52] LABS: B.E. - POC -2.8 mmol/L; Glucose - POC 122 mg/dl (70-99); HCO3 - POC 23 mmol/L (21-28); Hematocrit - POC 31 % PCV (42-52); Hemodilution- POC Yes; Hemoglobin Calculated - POC 10.5; Ionized Calcium - POC 1.23 mmol/L (1.15-1.33); O2 Saturation %Calculated-POC 99.9 % (94-98); PCO2 - POC 41 mmHg (35-48); PO2 - POC 321 mmHg (83-108); POC Comment POST; Potassium - POC 4.9 mmol/L (3.5-5.1); Sodium - POC 137 mmol/L (136-145); pH - POC 7.35 (7.35-7.45)
--- NOTE | 2024-06-03 13:28 | W.PN.INTV ---
Today's Communication / Plan
Recommendations
Continue mechanical ventilation without change
Spontaneous breathing trial once anesthesia wears off
Wean off Levophed
Follow chest open
Follow hemoglobin
Continue sedation as necessary
Assessment
-
Assessment: 68-year-old male non-smoker with a PMHx of CLL, HAYDEN not on treatment, dyslipidemia and history of colon polyps who presents with nausea and cold-like symptoms x few days. His initial episode was on 05/15/2024 and he reported a burning
sensation starting in his abdomen and coming up to his chest. Symptoms occurred during exertion and improved with rest. Symptoms had resolved for some time and even played golf on 05/28/2024 with no symptoms at all. His episodes unfortunately
continued to occur and he came here to the ER for further evaluation. Initial labs showed hyperleukocytosis with WBC 125.2 and immunoglobulin deficiency. CTA chest was negative for an acute PE with extensive scattered groundglass opacities with
right hilar lymphadenopathy. Of note he recently flew from [place] back home on 05/28/2024 and caught a cold over the process that he is still recovering from. He was given antibiotics in the ER plus IVF and admitted to the hospitalist service.
Due to abnormal imaging with SOB and hypoxia pulmonary service consulted for additional management/recommendations.
Chronic conditions HOOP EXPANDER: Dyslipidemia, DJD (knees), history of colonic polyps, diverticular disease, HAYDEN, history of CLL
Transferred to CVICU postoperatively-s/p coronary artery bypass 06/03/2024.
Impression:
Multivessel coronary artery disease: Status post CABG 06/03/2024 Dr. Wesley
[facility] on 05/31/2024 --> multivessel CAD with normal LV filling pressures
Postoperative respiratory failure-mechanical ventilation
Postoperative anemia
-
#Abnormal CT chest with diffuse bilateral/perihilar groundglass opacities suspected to be intralobular septal thickening with bibasilar atelectasis likely due to acute pulmonary edema vs pneumonitis vs lymphangitic carcinomatosis; given the LVEDP
from [facility] on 06/20 with WNL even prior to getting diuretics, I am less likely inclined to say that this is due to acute pulmonary edema
#Cold-like symptoms HOOP EXPANDER
#Exertional epigastric discomfort with nausea and diaphoresis suspicious for ACS
#Hyperleukocytosis likely due to history of CLL
#Immunoglobulin deficiency
#Thrombocytopenia (platelet count was 110 in September 2023)
#Elevated troponin with peak at 0.417 on 05/31/24)
#HAYDEN (moderate severity with overall AHI: 23.8 events/hr via HSAT in Jul 2021) non-compliant to CPAP
Plan:
His doing well postop-currently on mechanical ventilation and appears comfortable.
ABG reviewed: Adequate oxygenation and ventilation.
Continue SIMV mode with no change
Spontaneous breathing trial per protocol once sedation wears off.
Anemia noted-no evidence of acute bleeding
Follow H&H serially
Hemodynamics -acceptable on low-dose Levophed.
Arterial line in place
Davies urinary output
Chest tube with no excessive drainage-no air leak.
Chest x-ray reviewed: With no pneumothorax or fluid collections.
Remain nothing by mouth
Head of the bed elevation
Glycemic control per protocol
DVT prophylaxis when safe from the surgical perspective.
---
- Doubtful this is an underlying ILD as upon prior review of previous whole-body PET/CT from 02/02/2024, there was no diffuse bilateral groundglass opacities seen, just subsegmental atelectasis and right upper lobe pneumonia
- Given his recent flu like symptoms, this could very well be a viral pneumonitis
- Ultimately he will need repeat CT chest without contrast in 4-6 weeks to assess for resolution of his GGO
Critical care statement: A total of 32 minutes of critical care time was provided for this patient today. This includes management of unstable vital signs, evaluation of the patient at bedside, reviewing the patient's pertinent medical records
including ventilator settings, arterial blood gases, radiographs, microbiology, laboratory evaluations and discussion with primary team, critical care nursing, and respiratory therapy.
--
Ultimately, outpatient follow-up will be arranged as last visit on 07/31/2023 with ERIKA Lamb. He is interested in repeating a sleep study to reassess his severity +/- persistence of HAYDEN. He ultimately is not interested in using PAP with
sleep as he did not feel any better when he was using it previously. We did briefly discuss the Inspire device.
Data:
CTA Chest 05/31/2024:
1. No evidence of pulmonary embolism or thoracic aortic dissection.
2. Extensive scattered foci of groundglass opacity, most consistent with infectious or inflammatory pneumonitis. Underlying interstitial fibrosis may be present at the lung bases.
3. Right hilar lymphadenopathy, reactive.
4. Moderate coronary arterial calcification. Please correlate with symptoms of and risk factors for coronary artery disease, with further workup as clinically appropriate.
Left heart catheterization 05/31/2024:
Conclusions:
1. Multi-vessel coronary artery disease including left main disease in setting of NSTEMI.
2. Normal LV filling pressure and no aortic stenosis.
Recommendations:
1. Expectant management after cardiac catheterization via right radial approach.
2. Given high syntax score with reasonable distal targets and no major surgical contraindications (note well controlled CLL), referral for coronary artery bypass grafting is appropriate with plan for grafts to the RPDA (if sufficient caliber), LPL,
LAD +/- D1. Given NSTEMI, patient should be revascularized prior to discharge.
3. Continue heparin, asa, statin, metoprolol. Do not give any P2Y12 inhibitors pending surgery.
4. Patient likely has HeHF given LDL 120 despite high intensity statin. Will need additional of ezetimibe+PCSK9i going forward for goal LDL <55. Aggressive management of diabetes and hypertension. Relatives should be screened in early age for
hyperlipidemia.
Subjective Dataa
Subjective Data
Date of Service:
Date of Service: June 03, 2024
Chief Complaint: Mechanical Inspector Follow Up (Status postcoronary artery bypass and COURTNEY clip)
Objective Data
Data Reviewed
Vital Signs / I&O / Oxygen:
Vital Signs
Temp Pulse Resp BP Pulse Ox
97.9 F 85 18 168/78 95
06/03/24 04:50 06/03/24 05:31 06/03/24 04:50 06/03/24 05:21 06/03/24 04:50
Intake and Output
06/02/24 06/03/24 06/04/24
06:59 06:59 06:59
Intake Total 432 / 432 960 / 960
Output Total 1300 / 1300 750 / 750
Balance -868 / -868 210 / 210
SaO2 95
Nasal Cannula flow liters per 2
minute
Physical Exam
General: Comfortable
HEENT: Normocephalic
Cardiovascular: S1-S2
Respiratory: Clear, ET Tube (No significant secretion) and Chest Tube ( no excessive drainage or air leak)
GI: Soft and Non Distended
Neurology: Other (Sedated, on mechanical ventilation. Has respiratory effort.)
Skin: Warm
[2024-06-03 13:40] LABS: Glucose - Point of Care 160 mg/dl (70-99)
[2024-06-03 13:50] VITALS: BP_SYST 114
[2024-06-03 14:01] LABS: B.E. -4.2 mmol/L; Ionized Calcium 1.16 mMOL/L (1.15-1.33); O2 Saturation % 97.5 % (94-98); PCO2 38 mmHg (35-48); PO2 82 mmHg (83-108); Potassium 4.8 mMOL/L (3.5-5.1); Sodium 133 mMOL/L (136-145); pH 7.35 (7.35-7.45)
[2024-06-03] MEDS: NEURONTIN PO (14:04)
[2024-06-03 14:05] LABS: Hematocrit 33.6 % (39.0-52.0); Hemoglobin 10.7 g/dL (13.0-18.0); Platelet Count 121 10^3/uL (130-400)
[2024-06-03 14:07] LABS: Blood Urea Nitrogen 36 mg/dl (9-20); Estimated Creatinine Clearance 51 ml/min; Glucose 160 mg/dl (70-99); Magnesium 3.3 mg/dl (1.6-2.3)
[2024-06-03] MEDS: ANCEF 10 IV ×2 (14:10→14:11)
[2024-06-03] MEDS: TYLENOL PO (14:11)
[2024-06-03] MEDS: NSS 500 IV (14:11)
--- NOTE | 2024-06-03 14:13 | W.PN.CD ---
Addendum entered and electronically signed by John Rashid MD 06/03/24 16:30:
68 yo male with new diagnosis of CAD, NSTEMI this admission, CLL; now s/p CABG today. He has been extubated. Exam with RRR, no murmurs, no edema. Tele and EKG: NSR. ESTEFANY: 60-65%.
Continue ASA/Plavix/statin.
Original Note:
Today's Communication / Plan
-
-close post-op monitoring and care with weaning of drips and vent as tolerated per CT surgery/CVICU protocol.
Impression / Plan
-
68 year old male with HLD, CLL (not on treatment), pre-DM, HAYDEN, admitted with several weeks of intermittent chest discomfort and found to have NSTEMI with [facility] 05/31/24 revealing severe multi-vessel CAD. He is now s/p CABG.
Multivessel CAD:
-NSTEMI with peak troponin 0.417, nml LVEF. Cath showed severe LM and 2V CAD, no clear culprit for his [place]. He is no s/p CABG 06/03/[address] Wesley (surgical note with details pending).
-post-op EKG and tele are stable
-remains on Levophed, which requires intensive monitoring. He is intubated and sedated. CT's, Davies, and pacer wire in place.
Right radial site hematoma: improved, now just ecchymotic. Good pulse.
-arterial u/s: No evidence of right wrist hematoma. No pseudoaneurysm in the right radial artery.
AKILA likely from diuresis
-BUN/Cr elevation. Creatinine as high as 1.6, now 1.4.
-LVEDP was normal (13 mmHg) at cath, no heart failure, lasix stopped
-follow labs post-op
Mixed hyperlipidemia
- Lp(a) pending, a new drug is in testing to see if lowering Lp(a) is of benefit...
- Goal LDL < 55, came in on atorva with LDL well above 55, will plan rosuvastatin 40 + ezetimibe 10 at hospital d/c
CLL: heme saw this hospitalization
Pre-DM
Elevated BP w/o dx of HTN
-LVH on echo suggest that he likely has HTN
-monitor BP's post-op
HAYDEN, not on treatment
BMI 27
Subjective:
Intubated and sedated, in no distress
TTE 05/31/24: Nml LV/RV syst fxn, no RWMA, mild cLVH/MR, AoV sclerosis =
LHC 05/31/24: Multi-vessel CAD including left main disease in setting of NSTEMI. Normal LV filling pressure and no aortic stenosis.
Physical Exam
Vital Signs/Labs
Vital Signs
Temp Pulse Resp BP Pulse Ox
98.5 F 78 16 168/78 97
06/03/24 13:30 06/03/24 13:45 06/03/24 13:45 06/03/24 05:21 06/03/24 13:45
06/02/24 06/03/24 06/04/24
06:59 06:59 06:59
Actual Weight 83.3 kg 83.2 kg
06/03/24 13:40
PT 13.5 Sec (11.4-14.6) 06/01/24 07:12
INR 1.05 06/01/24 07:12
APTT Cancelled 06/01/24 21:00
Magnesium 3.3 mg/dl (1.6-2.3) H 06/03/24 13:40
Triglycerides 154 mg/dl (10-149) H 05/31/24 06:09
LDL Cholesterol, Calc 120 mg/dl 05/31/24 06:09
VLDL Cholesterol, Calc 30 mg/dl (0-30) 05/31/24 06:09
HDL Cholesterol 38 mg/dl 05/31/24 06:09
LAB Results
05/31/24
17:57
Troponin I Cancelled
Physical Exam
Constitutional: No acute distress
EENT: Anicteric
Cardiovascular: Rhythm & rate is regular and Rub present
Respiratory: Lungs clear to auscul. and Other (intubated and ventilated)
Neuro/Psych: Other (sedated)
Other: Skin (midsternal incision appears well-approximated- no redness, drainage, swelling)
Data Reviewed
-
Date of Service: June 03, 2024
EKG: Tracing Personally Visualized and interpreted (NSR stable) and Other (tele SR)
Medical Tests (PFT, Pathology etc): Report Reviewed by me (echo and cath report as noted)
Labs: Labs Reviewed by me
[2024-06-03 14:14] LABS: APTT 25.5 Sec (23.4-35.0); INR 1.17; PT 15.4 Sec (11.4-14.6)
[2024-06-03] MEDS: CALCIUM GLUCONATE 100 IV (14:20)
[2024-06-03 14:26] LABS: ACT+ - POC > 1003 Seconds (82-134)
--- NOTE | 2024-06-03 14:29 | PTCARENOTE ---
Received pt from [facility]. Pt intubated - placed on SIMV 5/5/600/60% - FiO2 weaned per protocol - pt overbreathing ventilator and following commands when directed. Precedex weaned down & pt placed on CPAP/PSV wean. CT x 4 present & connected to -20 cm
H2O suction, no air leak/crepitus present, see worklist for I & O. Pt in NSR on monitor, rub upon auscultation, epicardial v-wires placed to back up of VVI/50/5. Pt received on 6 mcg/min of Levophed, titrated per protocol, currently on 4. Cardizem
gtt off upon arrival & remains off - FAMILY SOCIOLOGIST made aware. BS hypoactive. Indwelling urinary catheter draining clear/yellow urine. Procedural sites intact. RIJ Cordis/Danevang present. R brachial A-line. RENATE PIV. Insulin gtt infusing per protocol EKG & pCXR
obtained. Labs drawn & reviewed, iCal replaced.
--- NOTE | 2024-06-03 14:36 | W.PN.CT.SURG ---
Addendum entered and electronically signed by Diamond Chamberlain PA-C 06/08/24 12:48:
additionally patient had a preop parasternal block completed by anesthesia--see anesthesia documentation for procedure details
Original Note:
CT Surgery Operative Note
-
CARDIAC SURGERY OPERATIVE REPORT
Preoperative Diagnosis: Multivessel Coronary Artery Disease with NSTEMI
Postoperative Diagnosis: Same
Procedure(s) Performed:
1. Sternotomy with aortic and right atrial cannulation
2. Coronary artery bypass grafting x 4 (In situ ZURITA to LAD, Ao to RSVG to diagonal, Ao to RSVG to RPDA, midportion of the RSVG of the RPDA to left radial artery the largest OM/LPL branch)
3. Left atrial appendage exclusion [35 mm clip]
4. Endoscopic vein harvesting of right lower extremity and endoscopic left radial artery harvest
5. Placement of temporary ventricular pacing wires
6. Transesophageal echocardiography
7. Transonic flow probe assessment of all grafts
Date of Surgery: 06/03/2024
Comorbidities:
1. NSTEMI with multivessel coronary disease
2. CLL
3. Hypertension
4. Hyperlipidemia
5. HAYDEN without CPAP
6. Prediabetes mellitus with hemoglobin A1c of 5.7
Attending Surgeon: Timmy Wesley MD, MS
Assistants: Izabela Allan PA-C (present and necessary to fitness assistant, endoscopic vein harvest, retraction, suction, exposure, suture management, and wound closure under my direction) & Timmy Stinson PA-C (endo radial harvest)
Anesthesiology: Alexis Miller MD and Ghada Gudino CRNA
Scrub and Circulating RNs: Roseann Dennis, RN, Werner Cano RN
Cullet Trucker: Arturo Cantu CCP
Anesthesia: GETA
EBL: per perfusion records
Products: None
CPB Time: 96 minutes
Aortic Cross Clamp Time: 85 minutes
Indication(s) for Procedures: This is a 68-year-old male who presented with an NSTEMI. He has multivessel coronary disease involving the proximal LAD. Given his young age he is offered multi arterial revascularization. His STS risk was reviewed.
His chads Vascor was 3 and so his left atrial appendage was also excluded at time of surgery.
Conduit(s) Quality:
ZURITA -excellent/skeletonized
RSVG -excellent/uniform
Left radial�good/dissected towards the proximal end but salvageable otherwise. Graft
Target(s) Quality:
RCA/PDA -good/decent sized target that fit a 1.5 to 2 mm probe easily, mean flow of 22 mL/min, PI of 1.7 after sequencing the radial artery graft off of the vein graft to the RPDA, the mean flow maintained at approximately 10ml/min with a PI of 3.1
OM -large target easily accommodated a 2 mm probe, radial artery conduit was used to bypass this after pulmonary composite graft from the vein graft to the OM via the left radial, the mean flow was approximately 30 cc a minute with a PI of 3.4
Diagonal -all the diagonal vessels were heavily diseased, vein graft was able to be placed here with a mean flow of approximately 29 mL/min with a PI of 1.9
LAD -good sized target/had a mean flow of approximate 40 mL/min with a pulsatility index of 2.1
Findings: His left ventricular ejection fraction preoperatively was normal at 60 to 65% without any regional wall motion abnormalities. Following surgery his EF remained the same at approximate 65%. There were no new regional wall motion
abnormalities. The ZURITA was harvested in a skeletonized fashion. His vein graft and left radial were harvested endovascularly. The proximal portion of the radial artery graft was taken off the midportion of the ZURITA due to the length
insufficiency. The proximal portion was little bit dissected and had initially not satisfactory flows and so I relocated the graft after transecting it and removing the proximal portion onto the midportion of the vein graft leading to the RPDA. It
had excellent flow thereafter on Transonic flow probe assessment. Following bypass grafting, test dose cardioplegia was given down each distal and confirmed patency and hemostasis. Each distal was probed both proximally and distally to confirm
disease and patency, respectively. He did not require any blood products, was sinus rhythm following surgery, did not require any inotropic support. His left atrial Penders verified to be free of any thrombus or debris preoperatively and totally
occlusive postoperatively with the clip applied flush to the base.
Description of Procedure: The patient was taken to the operating room. Their identity and procedure to be performed were verified and they were positioned supine on the operating table. Induction via general anesthesia with endotracheal intubation
was performed and central venous access and arterial monitoring were inserted. A preoperative transesophageal echocardiogram was performed to assess cardiac function and valvular function. The patient was then prepped and draped from chin to feet in
a sterile fashion. A preoperative time-out was performed with all members of the team present. A midline chest incision was performed along with median sternotomy. Simultaneous endoscopic access of the right lower extremity for saphenous vein
harvest was obtained along with administration of an initial 5,000 units of IV heparin. Endoscopic harvesting of the left radial artery was also commenced. A RulTract sternal retractor was positioned to exposure the left internal mammary bed. The
mammary was harvested and found to have good flow. A bulldog clamp was applied to the distal end of the mammary after dividing it. It was wrapped in a papaverine soaked RayTec and replaced back into the left hemithorax. The RulTract was exchanged
for a median sternal retractor. The innominate vein was isolated. Full heparinization was given (a total of 45,000 units). We created a pericardial well. The aortic cannulation site was chosen where it was soft, pliable, and free of calcium.
Cannulation was performed with an arterial cannula in the ascending aorta and a triple-stage venous cannula through the right atrial appendage. The arterial cannula line had an appropriate bounce and correlating pressures with test dosing. Next, a
root vent/antegrade cannula was inserted into the ascending aorta. The ACT was confirmed to be over 400 and retrograde autologous priming was performed before commencing cardiopulmonary bypass. The pulmonary artery was away from the aorta
to facilitate a clamp site. The aortic cross-clamp was placed after decreasing the flow on the bypass and mean arterial pressure. A total of 1.2L initial dose of antegrade Del-Nido cardioplegia solution was given and planned for re-dosing every 75
minutes as necessary. There was rapid electro-mechanical arrest of the heart at 300 cc of cardioplegia. The left ventricle was observed for distention on echocardiogram and manual palpation. Cold slush was placed into a sponge and topically on the
RV while we systemically cooled to 34 degrees centigrade. The heart was then medialized and the left atrial appendage was sized to a 35 mm clip which was then applied flush to the base.
Since the heart was ready mobilized and exposing the LPL/OM branch, I opted to the radial artery distal target first. The OM branch was then dissected with a [place] blade and a small coronary tracheotomy was created and enlarged with Randolph
scissors. The radial artery distal and was beveled accordingly and end-to-side anastomosis was created with 7-0 Prolene in a running fashion. The anastomosis was then secured with a micro core knot. Given the length of the radial artery, did not
appear to sufficiently reach the aorta and so I had initial plans on forming a composite Y graft off of the midportion of the ZURITA. Next, I positioned the heart to expose the distal right coronary at the posterior descending artery. A cher-ae heights blade
was used to expose the coronary and perform the arteriotomy. Coronary Randolph scissors were used to enlarge the incision. The saphenous vein was trimmed and beveled to an appropriate size. The distal anastomosis was performed using 7-0 prolene in an
end-to-side fashion. Antegrade cardioplegia was administered into the graft. Appropriate hemostasis and flow were confirmed. The graft was measured for length to the aorta and cut. A suitable site on the bifurcating diagonal branch was chosen. We
dissected and prepared the distal target in a similar fashion. An end-to-side anastomosis was created with a 7-0 prolene. Antegrade cardioplegia was administered into the graft. Appropriate hemostasis and flow were confirmed. The graft was measured
for length to the aorta and cut. A suitable target on the mid/distal left anterior descending was identified. We dissected and prepared the distal target in a similar fashion. We retrieved the ZURITA from the chest and created a pericardial opening
while being cognizant of the phrenic nerve to facilitate the course of the mammary. The distal end of the mammary was prepped and beveled to size. We verified orientation and length of the POPEYE and found brisk flow. An end-to-side anastomosis was
created with a 7-0 prolene. We temporarily released the bulldog clamp on the mammary to inspect flow. Perfusion to the LAD territory was visualized and hemostasis was confirmed. The bull clamp was replaced on the mammary. Again, due to insufficient
radial artery length and grafting to an LPL branch, I placed 2 bulldogs in the mammary and performed a small arteriotomy on the anterior surface. The proximal end of the radial artery graft was then spatulated using 8-0 Prolene and I performed an
end-to-side anastomosis and secured it with a micro core knot. The heart was filled and the root was distended with antegrade cardioplegia to make final assessment of graft length and orientation. We created 2 aortotomies using a #11 blade then a
4.0mm aortic punch. The proximal anastomoses were created in an end-to-side fashion using 6-0 prolene. At the the same time, we re-warmed to 36.5 degrees centigrade. The bulldog clamp was removed from the mammary. Temporary bipolar ventricular
pacing wires were placed on the base of the right ventricle. The patient was placed in a Trendelenburg position and flows on bypass were lowered. The aortic cross clamp was removed and flows were slowly brought back up. All bypass grafts were
inspected and were free from kinking or twisting. The distal and proximal anastomoses appeared hemostatic. Once transesophageal echocardiography appeared satisfactory for de-airing, the flows were temporarily lowered for root vent removal. After
verifying acceptable parameters, we initiated weaning from cardiopulmonary bypass. Once we were off cardiopulmonary bypass, the venous cannula was clamped and removed. A test dose of protamine was administered and the patient was monitored for any
adverse reaction before resuming protamine. At this point Transonic flow probe was used to assess all grafts. They had excellent flow except for the radial artery graft which I was suspicious of. At this point protamine was ceased and additional
heparin was given, 20,000. I opted to clip the proximal portion the radial artery graft and transected it followed by relocation to the midportion of the RPDA graft after removing more the proximal and until there was a clean undissected portion.
Transonic flow probe assessment thereafter was excellent in all grafts. I then commenced with additional protamine. Once half of the protamine dose was delivered, pump suckers were turned off and the systolic blood pressure was lowered for aortic
decannulation. The aortic cannula was removed and pursestrings were tied down. All cannulation sites were oversewn with a 4-0 prolene. The mammary bed was inspected and hemostasis was confirmed. Once the mediastinum was hemostatic, 19Fr Juan Jose drain
was placed in the left and right pleural cavity and two 24Fr Juan Jose drains were placed within the pericardium. The sternum was approximated with 4 #7 single and 3 #8 double stainless steel wires. Fascia was approximated with #1 vicryl suture. The
subcutaneous, dermis and epidermis were closed in layers in a running fashion. The skin wound was cleansed and dressed.
All instrument, sponge, and needle counts were confirmed to be correct x 2 at the end of the operation. The patient was transferred to the cardiac intensive care unit in critical but stable condition.
I, Dr. Timmy Wesley, was present, scrubbed for, and performed all critical elements of this procedure.
Timmy Wesley MD, MS
Cardiothoracic Surgeon
[facility]
This operative dictation was created using the [employer] dictation system. Please excuse any grammatical, typographical, or 'sound alike' errors
[2024-06-03 14:37] LABS: IgA 13 mg/dL (68-408); IgG 263 mg/dL (768-1632); IgM <10 mg/dL (35-263)
[2024-06-03 14:58] LABS: Glucose - Point of Care 168 mg/dl (70-99)
[2024-06-03 15:05] LABS: Mixed Venous O2 Saturation 64.8 %
[2024-06-03 15:08] LABS: B.E. -5.1 mmol/L; HCO3 19.9 mmol/L (21-28); PCO2 36 mmHg (35-48); PO2 104 mmHg (83-108); pH 7.35 (7.35-7.45)
[2024-06-03] MEDS: LACTATED RINGERS 250 ML IV ×3 (15:15→17:23)
[2024-06-03] MEDS: SODIUM BICARBONATE 50 MEQ IV (15:16)
[2024-06-03 16:00] LABS: Albumin 3.48 g/dL (3.75-5.01); Alpha 1 Globulin 0.25 g/dL (0.19-0.46); Alpha 2 Globulin 0.72 g/dL (0.48-1.05); SPEP IFE Reflex IFE Done; Total Protein-Electrophoresis 5.2 g/dL (6.3-8.2)
[2024-06-03 16:12] LABS: Glucose - Point of Care 120 mg/dl (70-99)
--- NOTE | 2024-06-03 16:12 | PTCARENOTE ---
Pt extubated to 6L NC at ~1505 without issue. 1 amp HCO3- administered for ABG. 500 mL LR administered for hypovolemia. Pt bathed with CHG wipes. Turned & repositioned, linens changed. Mouth care provided. Remains on Insulin gtt & 4-6 mcg/min of
Levophed. Family up ad bedside and aware of plan of care. No other changes.
[2024-06-03 17:08] LABS: Glucose - Point of Care 110 mg/dl (70-99)
[2024-06-03] MEDS: PACERONE 200 MG PO ×2 (17:09→22:11)
[2024-06-03] MEDS: ANCEF 5 IV (17:09)
[2024-06-03] MEDS: NORVASC PO (17:09)
[2024-06-03] MEDS: CRESTOR 40 MG PO (17:10)
[2024-06-03] MEDS: NEURONTIN 100 MG PO ×2 (17:10→22:11)
[2024-06-03 17:27] LABS: Hematocrit 34.3 % (39.0-52.0); Hemoglobin 10.7 g/dL (13.0-18.0); Platelet Count 134 10^3/uL (130-400)
[2024-06-03 17:40] VITALS: BP_SYST 128
[2024-06-03] MEDS: ZOFRAN 4 MG IV (18:05)
[2024-06-03 18:21] LABS: Glucose - Point of Care 128 mg/dl (70-99)
[2024-06-03] MEDS: ALBUMIN 5% 250 IV (18:40)
[2024-06-03] MEDS: CARDIZEM 125 IV (19:55)
--- NOTE | 2024-06-03 20:00 | PTCARENOTE ---
Assumed care of the patient at 1900, family at bedside, patient resting in bed. AOx3, c/o mild sternal pain. NSR on monitor, rub appreciated on auscultation, epicardial v-wire insulated. RIJ Cordis/Slic, R brachial A-line present, lines zeroed and
leveled. Edema of the R wrist with ecchymosis, palpable pulses throughout, sufficient capillary refill, axillae warm. CT x 4 to -20 cm suction; no air leak, tidaling, or crepitus noted. BS present, abdomen rounded, SNT. Indwelling urinary catheter
draining clear, yellow urine. Surgical sites intact with Dermabond, mary carmen wraps on LUE/RLE. PIV#22 in RUE. Insulin infusing per protocol. Levo weaned to 2 mcg/min per protocol after Albumin infusion completed. Cardizem initiated. See nursing worklist
for further details. Call lui within reach, questions encouraged, assessment of needs ongoing.
[2024-06-03 20:12] LABS: Glucose - Point of Care 112 mg/dl (70-99)
[2024-06-03] MEDS: LOW STRENGTH ASPIRIN 81 MG PO (20:14)
[2024-06-03] MEDS: ROXICODONE 5 MG PO (20:14)
[2024-06-03] MEDS: SENOKOT-S 1 TABLET PO (20:14)
[2024-06-03] MEDS: TYLENOL 1000 MG PO (22:11)
[2024-06-03] MEDS: OCEAN, SALINE MIST 1 SPRAYS NASAL (22:12)
[2024-06-03 22:21] LABS: Glucose - Point of Care 115 mg/dl (70-99)
[2024-06-03 23:05] LABS: Glucose - Point of Care 109 mg/dl (70-99)
[2024-06-04] VITALS (33 sets, daily range): BP systolic 82–141; BP diastolic 31–124; PULSE 83; O2SAT 91–92; BMI 28.2
--- NOTE | 2024-06-04 | PTCARENOTE ---
No changes in assessment. Insulin gtt adjusted per protocol. Patient received 5 mg Oxycodone for pain. Tolerating sips and chips. Urine noted to be cloudy, CVPA aware. Hudson encouraged, call lui within reach. Assessment of needs ongoing.
[2024-06-04 00:05] LABS: Glucose - Point of Care 94 mg/dl (70-99)
[2024-06-04 01:02] LABS: Glucose - Point of Care 109 mg/dl (70-99)
[2024-06-04 01:24] LABS: Lipoprotein a (Lp a) 125 mg/dL (<=29)
--- NOTE | 2024-06-04 02:00 | PTCARENOTE ---
Addendum entered by Poornima Lenz RN 06/04/24 02:26:
CVPA notified of patient's temp 100.4. Monitor for now.
Original Note:
Attempted to wean Levophed per protocol. Pt's MAP 60-63 after 30 mins. Dose increased back to 2. See worklist for exact timing.
[2024-06-04 02:10] LABS: Glucose - Point of Care 99 mg/dl (70-99)
[2024-06-04] MEDS: ANCEF 5 IV ×2 (02:10→09:03)
[2024-06-04] MEDS: ROXICODONE 5 MG PO (02:11)
[2024-06-04] MEDS: LEVOPHED 250 IV (02:53)
[2024-06-04 04:03] LABS: Glucose - Point of Care 108 mg/dl (70-99)
--- NOTE | 2024-06-04 04:15 | PTCARENOTE ---
AM care completed on patient, labs drawn and sent, CHG bath, RIJ cordis/slic dressing changed. No changes in assessment, patient still with a low grade temp, CVPA aware, patient to receive scheduled AM Tylenol.
[2024-06-04 04:58] LABS: Blood Urea Nitrogen 41 mg/dl (9-20); Calcium 8.4 mg/dl (8.4-10.2); Carbon Dioxide 22 mmol/L (22-30); Chloride 105 mmol/L (98-107); Estimated Creatinine Clearance 59 ml/min; Glucose 111 mg/dl (70-99); Magnesium 2.6 mg/dl (1.6-2.3); Potassium 4.8 mmol/L (3.5-5.1); Sodium 138 mmol/L (135-145); eGFR > 60.00
[2024-06-04 05:13] LABS: Hematocrit 30.5 % (39.0-52.0); Hemoglobin 9.6 g/dL (13.0-18.0); Mean Corp Hgb Conc. 31.5 g/dL (33.0-37.0); Mean Corpuscular Hgb 27.6 pg (27.0-31.0); Mean Corpuscular Volume 87.6 fL (80.0-94.0); Platelet Count 122 10^3/uL (130-400); Red Blood Cell Count 3.48 10^6/uL (4.70-6.10); Red Cell Dist. Width 15.4 % (11.5-14.5); White Blood Cell Count 202.6 10^3/uL (4.8-10.8)
[2024-06-04] MEDS: TYLENOL 1000 MG PO ×3 (05:49→22:20)
[2024-06-04 06:00] LABS: Glucose - Point of Care 95 mg/dl (70-99)
--- NOTE | 2024-06-04 06:15 | PTCARENOTE ---
Febrile, received AM Tylenol dosage. Patient continues to tolerate sips of water and ice chips. Levo adjusted per protocol.
--- NOTE | 2024-06-04 06:55 | W.PN.CT ---
Today's Communication / Plan
-
-pod #1
-no issues overnight
-drips: Levo 1, Cardizem 2.5 for radial graft, Insulin
-CT output: 2 meds 125/285, 2 pleur 70/240 in 12/24 hrs
-wean off Levo, then deline
-transition from iv Cardizem to Norvasc for radial
-follow Cr (1.3 preop)
-d/c insulin
-d/c Davies
-current meds (ASA, Plavix, Lopressor, Norvasc, Crestor, Amio, Protonix, iv iron x3)
-encourage IS, OOB
Assessment / Plan
-
- NSTEMI/ mv-CAD - s/p CABG x4 (In situ ZURITA to LAD, Ao to RSVG to diagonal, Ao to RSVG to RPDA, midportion of the RSVG of the RPDA to left radial artery the largest OM/LPL branch); LAAE [35 mm clip] on 06/03/24, pod #1
- Intraop ESTEFANY: LVEF preop 60-65% and postop 65%, no wma. COURTNEY verified to be free of any thrombus or debris preoperatively and totally occlusive postoperatively with the clip applied flush to the base.
- CLL
- Hypertension
- Hyperlipidemia
- HAYDEN without CPAP
- Prediabetes mellitus with hemoglobin A1c of 5.7
- Chronic thrombocytopenia
- CKD 3a (Cr 1.3-1.6 preop)
- Acute postop blood loss anemia
- Acute postop atelectasis
- Acute postop hypovolemia with subsequent hypervolemia
Discussed patient care with: Nursing and Care Team
Subjective
-
Date of Service: June 03, 2024
Objective Data
-
Lab Results
06/03/24 16:58
06/03/24 13:40
PT 15.4 Sec (11.4-14.6) H 06/03/24 13:40
INR 1.17 06/03/24 13:40
APTT 25.5 Sec (23.4-35.0) 06/03/24 13:40
Vital Signs
Vital Signs
Temp Pulse Resp BP Pulse Ox
100.2 F 93 26 101/55 94
06/03/24 23:00 06/03/24 23:00 06/03/24 23:00 06/03/24 22:11 06/03/24 23:00
CT Intake/Output/Weight
06/03/24 06/03/24 06/04/24
06:59 18:59 06:59
Intake Total 1182.7 / 1668.5 485.8 / 1668.5
Output Total 200 / 750 840 / 1320 480 / 1320
Balance -200 / 210 342.7 / 348.5 5.8 / 348.5
SaO2: 94
Physical Exam
-
General: Awake and AOx3
Cardiovascular: Regular rate & rhythm, No Murmurs and No Rub
Respiratory: Decreased Breath Sounds
Sternum: Stable
Incision: Clean, Dry and Intact
Extremities: No Edema (2+ DPs b/l)
Data Reviewed
-
Lab Results: Results Reviewed
Medications: Active Meds Reviewed
Chest X-Ray: Report Reviewed and Image Reviewed
ECG: Report Reviewed and Image Reviewed
--- NOTE | 2024-06-04 07:20 | W.PN.ANS.POP ---
Anesthesia Post Operative
- Anesthesia Post Op Note
Vital Signs Stable-See Nursing Note: Yes
Airway Patent: Yes
Adequate Pain Control: Yes
Change in Mental Status: No
Current Postoperative Nausea & Vomiting: No
Anesthesia Complications: No
General Anesthetic Recall: No
Unplanned Admission: No
Post Op Hydration Adequate: Yes
--- NOTE | 2024-06-04 07:30 | PTCARENOTE ---
Received pt from maintenance mechanic 2nd shift RN; pt AAOX3 and resting comfortably in bed; NSR on monitor and VSS; +rub; Epicardial V wire insulated; RIJ Cordis/SLIC, Right Brachial A-line and PIV x1 all lines leveled and zeroed; Levo, Insulin and Cardizem infusing
see flow sheet for details; Lungs diminished; IS to 1000; CT x4 to -20 wall suction, no air leak and no crepitus noted; positive bowel sounds; Davies catheter draining pink/yellow urine; palpable pulses throughout; Right arm +1 edema and ecchymotic
from cath site; no other edema noted; all surgical sites C/D/I; see nursing documentation for further details.
--- NOTE | 2024-06-04 07:33 | ECGCV ---
Les Grullon CV DIAMOND DRILLER HELPER notified of ECG critical value identified by electronic interpretation on ECG completed on 06/04/2024, at 0730.
EKG resulted STEMI, Normal Sinus Rhythm; ST Elevation consider anterolateral injury or acute infarct.
[2024-06-04 08:24] LABS: Glucose - Point of Care 125 mg/dl (70-99)
[2024-06-04] MEDS: PLAVIX 75 MG PO (08:38)
[2024-06-04] MEDS: NORVASC 2.5 MG PO (08:39)
[2024-06-04] MEDS: SENOKOT-S 1 TABLET PO ×2 (08:39→19:35)
[2024-06-04] MEDS: MAGNESIUM OXIDE 500 MG PO (08:39)
[2024-06-04] MEDS: PACERONE 200 MG PO ×2 (08:39→15:07)
[2024-06-04] MEDS: NEURONTIN 100 MG PO ×3 (08:39→22:20)
[2024-06-04] MEDS: PROTONIX 40 MG PO (08:39)
[2024-06-04] MEDS: LOW STRENGTH ASPIRIN 81 MG PO (08:39)
[2024-06-04] MEDS: LOPRESSOR 12.5 MG PO ×2 (08:39→19:34)
[2024-06-04] MEDS: TORADOL 15 MG IV ×3 (08:39→19:36)
[2024-06-04] MEDS: LIDOCAINE 4% PATCH 1 PATCH TOPICAL (08:40)
[2024-06-04] MEDS: BACTROBAN 2% OINTMENT 1 APPLIC NASAL ×2 (08:40→19:34)
[2024-06-04] MEDS: OCEAN, SALINE MIST NASAL ×5 (08:48→22:25)
[2024-06-04] MEDS: METAMUCIL, KONSYL PO (08:48)
--- NOTE | 2024-06-04 08:59 | PTCARENOTE ---
Brachial A-line removed by CVNP; SLIC removed per order and Davies catheter removed; pt OOB x2 to chair; NSR on monitor and VSS.
[2024-06-04] MEDS: COLCHICINE 0.3 MG PO (09:03)
--- NOTE | 2024-06-04 09:06 | W.PN.ONC2 ---
Today's Communication / Plan
-
daily CBC
add differential
Impression
Impression
CLL, without indication for treatment
Hypogammaglobulinemia without infections complication
Acute coronary syndrome s/p CABG 06/03/24
Post operative acute on chronic leukocytosis
post operative anemia
chronic thrombocytopenia at baseline
Subjective/Objective
Subjective
near syncope this morning
Vital Signs:
Vital Signs
Temp Pulse Resp BP Pulse Ox
101.2 F H 93 26 134/62 93
06/04/24 08:00 06/04/24 08:39 06/04/24 08:15 06/04/24 08:39 06/04/24 08:00
Lab Results:
Laboratory Data
WBC 202.6 10^3/uL (4.8-10.8) H* 06/04/24 04:25
Hgb 9.6 g/dL (13.0-18.0) L 06/04/24 04:25
Plt Count 122 10^3/uL (130-400) L 06/04/24 04:25
PT 15.4 Sec (11.4-14.6) H 06/03/24 13:40
INR 1.17 06/03/24 13:40
APTT 25.5 Sec (23.4-35.0) 06/03/24 13:40
eGFR > 60.00 06/04/24 04:25
Physical Exam
HEENT: Moist Mucous Membranes; No Jaundice
Cardiology: S1 and S2
Pulmonary: Clear
GI: Soft
Extremities: No Edema
Neuro: Non Focal
Orders
Orders
Orders From Last 24 Hours
06/04/24 09:06
Add On- LAB Routine
[2024-06-04 09:48] LABS: Glucose - Point of Care 106 mg/dl (70-99)
--- NOTE | 2024-06-04 10:17 | W.PN.CD ---
Today's Communication / Plan
-
Agree with current management
Impression / Plan
-
68 year old male with HLD, CLL (not on treatment), pre-DM, HAYDEN, admitted with several weeks of intermittent chest discomfort and found to have NSTEMI with [facility] 05/31/24 revealing severe multi-vessel CAD. He is now s/p CABG.
S/p CABG on 06/03/2024 for NSTEMI with severe LV/2V CAD
- peak troponin 0.417, nml LVEF
- Intraop ESTEFANY showed new TR => anticipate echo in several months to followup on that finding
Pericarditis post-op
- +rub on exam, typical EKG changes
- Agree with low dose Colchicine
Mixed hyperlipidemia
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
- Goal LDL < 55, came in on atorva with LDL well above 55, now rosuvastatin 40 and will see LDL results in f/u
CLL: heme saw this hospitalization
Pre-DM
Elevated BP w/o dx of HTN
-LVH on echo suggest that he likely has HTN
-monitor BP's post-op
HAYDEN, not on treatment
BMI 27
Subjective:
Doing well.
TTE 05/31/24: Nml LV/RV syst fxn, no RWMA, mild cLVH/MR, AoV sclerosis =
[facility] 05/31/24: Multi-vessel CAD including left main disease in setting of NSTEMI. Normal LV filling pressure and no aortic stenosis.
Physical Exam
Vital Signs/Labs
Vital Signs
Temp Pulse Resp BP Pulse Ox
98.6 F 83 31 108/59 93
06/04/24 10:00 06/04/24 10:00 06/04/24 10:00 06/04/24 10:00 06/04/24 10:00
06/03/24 06/04/24 06/05/24
06:59 06:59 06:59
Actual Weight 83.2 kg 86.7 kg
06/04/24 04:25
06/04/24 04:25
PT 15.4 Sec (11.4-14.6) H 06/03/24 13:40
INR 1.17 06/03/24 13:40
APTT 25.5 Sec (23.4-35.0) 06/03/24 13:40
Magnesium 2.6 mg/dl (1.6-2.3) H 06/04/24 04:25
Triglycerides 154 mg/dl (10-149) H 05/31/24 06:09
LDL Cholesterol, Calc 120 mg/dl 05/31/24 06:09
VLDL Cholesterol, Calc 30 mg/dl (0-30) 05/31/24 06:09
HDL Cholesterol 38 mg/dl 05/31/24 06:09
Physical Exam
Constitutional: No acute distress
EENT: Anicteric
Cardiovascular: Rhythm & rate is regular, S1S2 is normal and Rub present
Respiratory: Respiratory effort normal and Lungs clear to auscul. (decreased at bases)
GI: Soft and Distention absent
Neuro/Psych: AO x 3 and Motor deficits absent
Data Reviewed
-
Date of Service: June 04, 2024
--- NOTE | 2024-06-04 10:31 | CM ---
Chart reviewed. Patient is OOB sitting in the chair. Patient is independent of ADLS, lives with his in a split level home, 0 ARTEM, 0 DMe. Plan is for the patient to return home with CT Transitional RN. CM to follow
[2024-06-04 10:35] LABS: % Basophils 0.1 % (0-2); % Eosinophils 0.1 % (0-6); % Lymphocytes 88.9 % (20.5-51.1); % Monocytes 4.5 % (1.7-9.3); % Neutrophils 5.4 % (42.2-75.2); Absolute Basophils 0.3 10^3/uL (0-0.2); Absolute Eosinophils 0.1 10^3/uL (0-0.7); Absolute Immature Granulocytes 2.1 10^3/uL (0-0.05); Absolute Lymphocytes 183.1 10^3/uL (1.2-3.4); Absolute Monocytes 9.2 10^3/uL (0.1-0.6); Absolute Neutrophils 11.2 10^3/uL (1.4-6.5); Nucleated Red Blood Cells % 0.1 % (-)
[2024-06-04] MEDS: NSS IV (12:08)
[2024-06-04 12:27] LABS: Glucose - Point of Care 86 mg/dl (70-99)
--- NOTE | 2024-06-04 12:36 | W.PN.INTV ---
Today's Communication / Plan
Recommendations
Continue postoperative care
Incentive spirometry
Follow chest tube output
Daily chest x-ray
Analgesia
Transfer to telemetry
Sign off
Assessment
-
Assessment: 68-year-old male non-smoker with a PMHx of CLL, HAYDEN not on treatment, dyslipidemia and history of colon polyps who presents with nausea and cold-like symptoms x few days. His initial episode was on 05/15/2024 and he reported a burning
sensation starting in his abdomen and coming up to his chest. Symptoms occurred during exertion and improved with rest. Symptoms had resolved for some time and even played golf on 05/28/2024 with no symptoms at all. His episodes unfortunately
continued to occur and he came here to the ER for further evaluation. Initial labs showed hyperleukocytosis with WBC 125.2 and immunoglobulin deficiency. CTA chest was negative for an acute PE with extensive scattered groundglass opacities with
right hilar lymphadenopathy. Of note he recently flew from [place] back home on 05/28/2024 and caught a cold over the process that he is still recovering from. He was given antibiotics in the ER plus IVF and admitted to the hospitalist service.
Due to abnormal imaging with SOB and hypoxia pulmonary service consulted for additional management/recommendations.
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
Transferred to CVICU postoperatively-s/p coronary artery bypass 06/03/2024.
Impression:
Multivessel coronary artery disease: Status post CABG 06/03/2024 Dr. Wesley
[facility] on 05/31/2024 --> multivessel CAD with normal LV filling pressures
Postoperative respiratory failure-mechanical ventilation
Postoperative anemia
-
#Abnormal CT chest with diffuse bilateral/perihilar groundglass opacities suspected to be intralobular septal thickening with bibasilar atelectasis likely due to acute pulmonary edema vs pneumonitis vs lymphangitic carcinomatosis; given the LVEDP
from [facility] on 06/20 with WNL even prior to getting diuretics, I am less likely inclined to say that this is due to acute pulmonary edema
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
#Exertional epigastric discomfort with nausea and diaphoresis suspicious for ACS
#Hyperleukocytosis likely due to history of CLL
#Immunoglobulin deficiency
#Thrombocytopenia (platelet count was 110 in September 2023)
#Elevated troponin with peak at 0.417 on 05/31/24)
#HAYDEN (moderate severity with overall AHI: 23.8 events/hr via HSAT in Jul 2021) non-compliant to CPAP
Plan:
Postoperative day 1
Extubated. On low rate supplemental oxygen
Complaining of chest tube site entry pain. Continue analgesia
Incentive spirometer
Increase activity as able
Leukocytosis: Likely due to CLL
Anemia noted-no evidence of acute bleeding
Follow H&H serially
Stable hemodynamically off vasopressors
Arterial line has been discontinued
Normal renal function
Chest tube with no excessive drainage-no air leak.
Chest x-ray reviewed: Bibasilar atelectasis. Incentive spirometry encouraged.
Advance diet as tolerated
Head of the bed elevation
Glycemic control per protocol
DVT prophylaxis when safe from the surgical perspective.
---
- Doubtful this is an underlying ILD as upon prior review of previous whole-body PET/CT from 02/02/2024, there was no diffuse bilateral groundglass opacities seen, just subsegmental atelectasis and right upper lobe pneumonia
- Given his recent flu like symptoms, this could very well be a viral pneumonitis
- Ultimately he will need repeat CT chest without contrast in 4-6 weeks to assess for resolution of his GGO
No additional recommendation from the critical care perspective. I will sign off.
Please call pulmonary if any respiratory issues arise.
Again, recommending repeat CT chest in about 4 to 6 weeks to document resolution of lung abnormalities.
--
Ultimately, outpatient follow-up will be arranged as last visit on 07/31/2023 with Hannah Weweantic, [facility] TECHNICAL ARCHITECT. He is interested in repeating a sleep study to reassess his severity +/- persistence of HAYDEN. He ultimately is not interested in using PAP with
sleep as he did not feel any better when he was using it previously. We did briefly discuss the Inspire device.
Data:
CTA Chest 05/31/2024:
1. No evidence of pulmonary embolism or thoracic aortic dissection.
2. Extensive scattered foci of groundglass opacity, most consistent with infectious or inflammatory pneumonitis. Underlying interstitial fibrosis may be present at the lung bases.
3. Right hilar lymphadenopathy, reactive.
4. Moderate coronary arterial calcification. Please correlate with symptoms of and risk factors for coronary artery disease, with further workup as clinically appropriate.
Left heart catheterization 05/31/2024:
Conclusions:
1. Multi-vessel coronary artery disease including left main disease in setting of NSTEMI.
2. Normal LV filling pressure and no aortic stenosis.
Recommendations:
1. Expectant management after cardiac catheterization via right radial approach.
2. Given high syntax score with reasonable distal targets and no major surgical contraindications (note well controlled CLL), referral for coronary artery bypass grafting is appropriate with plan for grafts to the RPDA (if sufficient caliber), LPL,
LAD +/- D1. Given NSTEMI, patient should be revascularized prior to discharge.
3. Continue heparin, asa, statin, metoprolol. Do not give any P2Y12 inhibitors pending surgery.
4. Patient likely has HeHF given LDL 120 despite high intensity statin. Will need additional of ezetimibe+PCSK9i going forward for goal LDL <55. Aggressive management of diabetes and hypertension. Relatives should be screened in early age for
hyperlipidemia.
Subjective Dataa
Subjective Data
Date of Service:
Date of Service: June 04, 2024
Chief Complaint: Brass Buffer Follow Up (Status postcoronary artery bypass and COURTNEY clip)
Subjective:
Patient complains of chest tube entry site pain.
Denies shortness of breath
Denies any cough
Currently sitting out of bed
Review of Systems
Cardiopulmonary: Dyspnea (none at rest) and Chest Pain
GI: Nausea (n) and Vomiting (n)
Objective Data
Data Reviewed
Vital Signs / I&O / Oxygen:
Vital Signs
Temp Pulse Resp BP Pulse Ox
98.6 F 83 18 108/60 94
06/04/24 10:00 06/04/24 12:00 06/04/24 12:00 06/04/24 12:00 06/04/24 12:00
Intake and Output
06/03/24 06/04/24 06/05/24
06:59 06:59 06:59
Intake Total 960 / 960 1962.9 / 2050.3 172.5 / 172.5
Output Total 750 / 750 1620 / 1645 125 / 125
Balance 210 / 210 342.9 / 405.3 47.5 / 47.5
SaO2 [CPAP/PSV] 97
SaO2 [SIMV] 98
SaO2 94
Nasal Cannula flow liters per 2
minute
Physical Exam
General: Comfortable
HEENT: Normocephalic
Cardiovascular: S1-S2
Respiratory: Clear and Chest Tube ( no excessive drainage or air leak)
GI: Soft and Non Distended
Neurology: Other (Sedated, on mechanical ventilation. Has respiratory effort.)
Skin: Warm
Labs/Micro/Reports
Lab Data
06/04/24 04:25
06/04/24 04:25
Laboratory Results
06/03/24 06/03/24
13:40 14:48
PT 15.4 H
INR 1.17
APTT 25.5
pH 7.35 7.35
pCO2 38 36
pO2 82 L 104
HCO3 21.0 19.9 L
O2 Delivery Level
--- NOTE | 2024-06-04 13:00 | PTCARENOTE ---
NSR on monitor and VSS; assessment unchanged; pt resting comfortably in chair.
--- NOTE | 2024-06-04 13:11 | PTCARENOTE ---
Right and Left pleural chest tubes removed per order.
[2024-06-04 14:09] LABS: Glucose - Point of Care 106 mg/dl (70-99)
[2024-06-04] MEDS: FERRLECIT 110 MG IV (15:06)
--- NOTE | 2024-06-04 16:28 | PTCARENOTE ---
Upon standing pt, pt became aphasic/garbled speech; 2 RNs at bedside with pt; Les Grullon CVNP at bedside, BP 110/31 HR 90's; RNs sat patient back into chair and pt quickly recovered/responded appropriately, BP 108/68; pt pulled back to bed with 5 RN
assist; medications being placed by CVNP; current BP in bed 116/39; family at bedside and updated.
[2024-06-04] MEDS: ProAmatine 2.5 MG PO (16:37)
[2024-06-04] MEDS: CRESTOR 40 MG PO (17:23)
--- NOTE | 2024-06-04 19:30 | PTCARENOTE ---
Assumed care of the patient at 1900, family at bedside, patient resting in bed. AOx3, no c/o pain. NSR on monitor, rub auscultated, epicardial v-wire insulated. R wrist edematous and ecchymotic from previous cath, palpable pulses throughout,
sufficient capillary refill, axillae cool. Mediastinal CT x 2 to -20 cm suction; no air leak, tidaling, or crepitus noted. BS present, abdomen round, SNT. Patient encouraged to respond to the urge to void. Surgical sites intact with Dermabond, HAIR PREPARER.
RIJ Cordis infusing KVO and PIV#22 in RUE. See nursing worklist for further details. Call lui within reach, questions encouraged, assessment of needs ongoing.
[2024-06-04] MEDS: MAGNESIUM OXIDE PO (19:38)
[2024-06-04] MEDS: PACERONE 400 MG PO (22:22)
--- NOTE | 2024-06-04 23:30 | PTCARENOTE ---
VSS, no changes in assessment, patient's pain well controlled. Intermittently diaphoretic. Pt voided 220 mLs in the urinal without difficulty. PA aware, patient DTV again at 0300. Sleeping between care, call lui within reach.
[2024-06-05] VITALS (25 sets, daily range): BP systolic 119–157; BP diastolic 51–127; PULSE 86; O2SAT 97; BMI 28.3
--- NOTE | 2024-06-05 03:30 | PTCARENOTE ---
No changes in assessment, patient DTV, voided 140 mLs bladder scanned for 18 PVR CVPA aware. VSS sleeping soundly. Maintained on 3LNC.
--- NOTE | 2024-06-05 04:59 | W.PN.CT ---
Addendum entered and electronically signed by Regis Greco MD 06/05/24 09:12:
I saw and examined the patient.
The PA's note was reviewed and I agree with the note.
Comment:
POD#2 s/p CABG x 4/ELAA
Creat 1.2 to 2.1; given 3 doses of toradol yesterday. Midodrine previously; currently OFF.
- D/C wires
- D/C CTs
- ASA/plavix, norvasc, hold on BB today, light diuresis today (20mg IV x 1)
- Follow UO and creat
- OOB/IS/ambulate
Original Note:
Today's Communication / Plan
-
-No major issues overnight. Hemodynamically and neurologically intact
-BP has soft postop with postop orthostasis
-BP improving, Midodrine placed on PRN, Lopressor switched to Toprol XL- holding dose today. Cont. Norvasc per Dr. Wesley given L radial graft
-Amiodarone increased to 400 mg TID while BB on hold
-Consider d/c of chest tubes: 2meds 55/140
-Will likely pull temporary PW today before d/c of chest tubes
-Has postop acute pericarditis, on Colchicine. Completed 3 doses of Toradol
-Cont. current meds (ASA, Plavix, Norvasc, Crestor, Amio, Protonix, iv iron x3)
-Cr 2.1 this AM, was 1.2 yesterday. Consider lasix if BP permits. Wt up 8 lbs
-Monitor hyponatremia, 134. Should improve with diuresis
-Encourage use of IS
-Wean off of O2
-Maintain cordis another day
-OOB into chair/Ambulate
Assessment / Plan
-
- NSTEMI/ mv-CAD - s/p CABG x4 (In situ ZURITA to LAD, Ao to RSVG to diagonal, Ao to RSVG to RPDA, midportion of the RSVG of the RPDA to left radial artery the largest OM/LPL branch); LAAE [35 mm clip] on 06/03/24, pod #1
- Intraop ESTEFANY: LVEF preop 60-65% and postop 65%, no wma. COURTNEY verified to be free of any thrombus or debris preoperatively and totally occlusive postoperatively with the clip applied flush to the base.
- CLL
- Hypertension
- Hyperlipidemia
- HAYDEN without CPAP
- Prediabetes mellitus with hemoglobin A1c of 5.7
- Chronic thrombocytopenia
- CKD 3a (Cr 1.3-1.6 preop)
- Acute postop blood loss anemia
- Acute postop atelectasis
- Acute postop hypovolemia with subsequent hypervolemia
- Acute postop hypotension/orthostasis
- Acute postop AKILA
- Acute postop hyponatremia, 134
Discussed patient care with: Cardiology, Nursing, Respiratory Therapy, Pharmacy and Care Team
Subjective
-
Date of Service: June 05, 2024
Objective Data
-
PT 15.4 Sec (11.4-14.6) H 06/03/24 13:40
INR 1.17 06/03/24 13:40
APTT 25.5 Sec (23.4-35.0) 06/03/24 13:40
Vital Signs
Vital Signs
Temp Pulse Resp BP Pulse Ox
98.2 F 82 18 119/65 92
06/05/24 03:00 06/05/24 04:00 06/05/24 03:00 06/05/24 03:00 06/05/24 04:00
CT Intake/Output/Weight
06/04/24 06/04/24 06/05/24
06:59 18:59 06:59
Intake Total 780.2 / 0.3 275.8 / 555.8 280 / 555.8
Output Total 780 / 1645 175 / 425 250 / 425
Balance 0.2 / 405.3 100.8 / 130.8 30 / 130.8
SaO2: 93 (3L)
Physical Exam
-
General: Awake, Oriented and AOx3
Cardiovascular: Rub (aute postop pericarditis)
Respiratory: Decreased Breath Sounds
Sternum: Stable
Incision: Clean, Dry, Intact and Dressing Intact
Extremities: No Edema
Data Reviewed
-
Lab Results: Results Reviewed
Medications: Active Meds Reviewed
Chest X-Ray: Report Reviewed and Image Reviewed
ECG: Report Reviewed and Image Reviewed
[2024-06-05 05:47] LABS: Hematocrit 26.5 % (39.0-52.0); Hemoglobin 7.9 g/dL (13.0-18.0); Mean Corp Hgb Conc. 29.8 g/dL (33.0-37.0); Mean Corpuscular Hgb 27.1 pg (27.0-31.0); Mean Corpuscular Volume 91.1 fL (80.0-94.0); Mean Platelet Volume 9.5 fL (7.4-10.4); Platelet Count 126 10^3/uL (130-400); Red Blood Cell Count 2.91 10^6/uL (4.70-6.10); White Blood Cell Count 195.3 10^3/uL (4.8-10.8)
[2024-06-05] MEDS: TYLENOL 1000 MG PO ×3 (05:48→22:00)
[2024-06-05 05:55] LABS: Blood Urea Nitrogen 67 mg/dl (9-20); Carbon Dioxide 23 mmol/L (22-30); Chloride 101 mmol/L (98-107); Estimated Creatinine Clearance 34 ml/min; Glucose 152 mg/dl (70-99); Magnesium 3.1 mg/dl (1.6-2.3); Sodium 134 mmol/L (135-145); eGFR 33.66
--- NOTE | 2024-06-05 08:00 | PTCARENOTE ---
Patient care assumed from nightshift RN. Patient fully alert and oriented. Complains of pain at surgical incision site at sternum, 3/10 pain, not requiring PRNs for control. 2-3LNC maintaining o2 saturations of 94%. Mediastinal CT x2 in place, on
wall suction -20cm. Minimal serosanguineous output. +1 bilateral upper extremity edema. Trace bilateral lower extremity edema. IV lasix given. Pt voiding in urinal with no complications, 225cc this morning. Pt has not had BM yet. Worked with cardiac
rehab to get patient OOB to chair. Pt was dizzy and lightheaded upon standing up but was able to get over to chair. Vital signs stable.
[2024-06-05] MEDS: PROTONIX 40 MG PO (09:13)
[2024-06-05] MEDS: NEURONTIN 100 MG PO ×3 (09:13→22:00)
[2024-06-05] MEDS: PACERONE 400 MG PO ×3 (09:13→22:01)
[2024-06-05] MEDS: LIDOCAINE 4% PATCH 1 PATCH TOPICAL (09:14)
[2024-06-05] MEDS: PLAVIX 75 MG PO (09:14)
[2024-06-05] MEDS: SENOKOT-S 1 TABLET PO ×2 (09:14→19:44)
[2024-06-05] MEDS: COLCHICINE 0.3 MG PO (09:14)
[2024-06-05] MEDS: LOW STRENGTH ASPIRIN 81 MG PO (09:14)
[2024-06-05] MEDS: NORVASC 2.5 MG PO (09:14)
[2024-06-05] MEDS: METAMUCIL, KONSYL 1 PACKET PO (09:15)
[2024-06-05] MEDS: BACTROBAN 2% OINTMENT 1 APPLIC NASAL ×2 (09:20→19:44)
[2024-06-05] MEDS: LASIX 20 MG IV (10:20)
--- NOTE | 2024-06-05 11:45 | PTCARENOTE ---
Temporary pacer wires removed by PA. Plan to remove Chest tubes later today. Patient back in bed so that wires could be removed. Was able to get up from chair with no lightheadedness or dizziness this time around. Vital signs remain stable. Another
225cc voided.
[2024-06-05] MEDS: OCEAN, SALINE MIST NASAL ×4 (11:48→17:30)
[2024-06-05] MEDS: NSS 500 IV (11:52)
--- NOTE | 2024-06-05 13:11 | CHAP ---
Anmol was sitting in the chair, awake, but tired from all he's been through. He acknowledged it's been a lot to absorb. He is handling the situation with patience and james, and appreciated receiving a prayer blanket. Emotional and spiritual
support provided.
[2024-06-05] MEDS: FERRLECIT 110 MG IV (14:36)
[2024-06-05] MEDS: CRESTOR 40 MG PO (17:24)
[2024-06-05] MEDS: LR 1000 IV (17:24)
--- NOTE | 2024-06-05 17:54 | PTCARENOTE ---
BMP sent. LR started at 75ml/hr via RIJ Cordis. Mediastinal chest tubes x2 removed. OOB in chair. Used bedside commode to attempt BM, passing flatus. Voiding without complications. Vital signs stable. 2LNC, O2 sats 96%. Eating dinner, patient had
poor appetite today.
[2024-06-05 18:04] LABS: Blood Urea Nitrogen 51 mg/dl (9-20); Calcium 5.9 mg/dl (8.4-10.2); Carbon Dioxide 18 mmol/L (22-30); Chloride 111 mmol/L (98-107); Estimated Creatinine Clearance 47 ml/min; Glucose 147 mg/dl (70-99); Potassium 3.3 mmol/L (3.5-5.1); Sodium 135 mmol/L (135-145)
[2024-06-05 18:39] LABS: Blood Urea Nitrogen 66 mg/dl (9-20); Calcium 7.7 mg/dl (8.4-10.2); Carbon Dioxide 23 mmol/L (22-30); Chloride 100 mmol/L (98-107); Estimated Creatinine Clearance 35 ml/min; Glucose 167 mg/dl (70-99); Potassium 4.5 mmol/L (3.5-5.1); Sodium 132 mmol/L (135-145); eGFR 35.68
[2024-06-05] MEDS: TOPROL XL 12.5 MG PO (19:44)
[2024-06-05] MEDS: OCEAN, SALINE MIST 1 SPRAYS NASAL (22:02)
[2024-06-06] VITALS (27 sets, daily range): BP systolic 111–201; BP diastolic 51–109; BMI 28.2
--- NOTE | 2024-06-06 04:29 | W.PN.CT ---
Addendum entered and electronically signed by Regis Greco MD 06/06/24 09:28:
I saw and examined the patient.
The PA's note was reviewed and I agree with the note.
Comment:
AKILA improved to Cr 1.9 this AM (down from 2.1) post hydration (75mL/hr x 12h) - Hgb down to 6.7 from 7.9
- Transfuse 1U PRBC
- ASA/plavix, BB, norvasc, amio, iron - D/C COLCHICINE
- Maintain cordis today
- IR eval for R thoracentesis for basilar effusion
- OOB/IS/ambulate
Original Note:
Today's Communication / Plan
-
-No major issues overnight.
-BP improving, Lopressor switched to Toprol XL 12.5 mg
-Cont. Norvasc per Dr. Wesley given L radial graft
-CTs DCd
-Has postop acute pericarditis, on Colchicine. Completed 3 doses of Toradol
-Cont. current meds (ASA, Plavix, Norvasc, Crestor, Amio, Protonix, iv iron x3, Toprol XL 12.5, colchicine)
-Cr 1.9, this AM, was 2.1 yesterday. s/p slow LR bolus
-Encourage use of IS
-Wean off of O2
-Maintain cordis
-OOB into chair/Ambulate
Assessment / Plan
-
- NSTEMI/ mv-CAD - s/p CABG x4 (In situ ZURITA to LAD, Ao to RSVG to diagonal, Ao to RSVG to RPDA, midportion of the RSVG of the RPDA to left radial artery the largest OM/LPL branch); LAAE [35 mm clip] on 06/03/24, pod #3
- Intraop ESTEFANY: LVEF preop 60-65% and postop 65%, no wma. COURTNEY verified to be free of any thrombus or debris preoperatively and totally occlusive postoperatively with the clip applied flush to the base.
- CLL
- Hypertension
- Hyperlipidemia
- HAYDEN without CPAP
- Prediabetes mellitus with hemoglobin A1c of 5.7
- Chronic thrombocytopenia
- CKD 3a (Cr 1.3-1.6 preop)
- Acute postop blood loss anemia
- Acute postop atelectasis
- Acute postop hypovolemia with subsequent hypervolemia
- Acute postop hypotension/orthostasis
- Acute postop AKILA
- Acute postop hyponatremia, 134
Subjective
-
Date of Service: June 06, 2024
Objective Data
-
PT 15.4 Sec (11.4-14.6) H 06/03/24 13:40
INR 1.17 06/03/24 13:40
APTT 25.5 Sec (23.4-35.0) 06/03/24 13:40
Vital Signs
Vital Signs
Temp Pulse Resp BP Pulse Ox
98.6 F 82 20 120/95 96
06/05/24 23:00 06/06/24 01:00 06/05/24 23:00 06/06/24 01:00 06/06/24 00:15
CT Intake/Output/Weight
06/05/24 06/05/24 06/06/24
06:59 18:59 06:59
Intake Total 410 / 685.8 555 / 555
Output Total 415 / 590 925 / 1375 450 / 1375
Balance -5 / 95.8 -370 / -820 -450 / -820
SaO2: 96
Physical Exam
-
General: Awake, Oriented and AOx3
Cardiovascular: Regular rate & rhythm, No Murmurs and Rub
Respiratory: Equal
Sternum: Stable and Unstable
Incision: Clean, Dry and Intact
Extremities: No Edema
Data Reviewed
-
Lab Results: Results Reviewed
Medications: Active Meds Reviewed
Chest X-Ray: Report Reviewed
ECG: Report Reviewed
[2024-06-06] MEDS: TYLENOL 1000 MG PO ×3 (05:13→21:05)
[2024-06-06 05:18] LABS: Blood Urea Nitrogen 64 mg/dl (9-20); Calcium 7.7 mg/dl (8.4-10.2); Carbon Dioxide 22 mmol/L (22-30); Chloride 102 mmol/L (98-107); Estimated Creatinine Clearance 37 ml/min; Glucose 132 mg/dl (70-99); Hematocrit 21.5 % (39.0-52.0); Hemoglobin 6.7 g/dL (13.0-18.0); Magnesium 3.2 mg/dl (1.6-2.3); Mean Corp Hgb Conc. 31.2 g/dL (33.0-37.0); Mean Corpuscular Hgb 27.5 pg (27.0-31.0); Mean Corpuscular Volume 88.1 fL (80.0-94.0); Mean Platelet Volume 9.6 fL (7.4-10.4); Platelet Count 113 10^3/uL (130-400); Potassium 4.5 mmol/L (3.5-5.1); Red Blood Cell Count 2.44 10^6/uL (4.70-6.10); Red Cell Dist. Width 16.4 % (11.5-14.5); Sodium 135 mmol/L (135-145); White Blood Cell Count 139.8 10^3/uL (4.8-10.8); eGFR 37.95
--- NOTE | 2024-06-06 05:47 | PTCARENOTE ---
Pt awake intermittently t/o the night. HR in the 80's in NSR on the monitor. POX 87% on Ra, 95%-98% on 2 LO2 NC. Lungs dec @ bases. CHRISTINE/ tachypneic. + bowel, round abd. Pt using urinal as needed. No BM overnight. Poor appetite, pt only ate grapes
and a few bites of sandwich for dinner. Palpable peripheral pulses present. +2 B/L UE edema/ ecchymosis noted. Right groin site intact with ecchymosis from groin to Right upper thigh. Sternal site approximated, surg glue present, open to air. CT
sites with sutures intact, dressing C/D/I. Right IJ infusing LR@75ml/hr. Right arm INT capped. PT OOB to chair this am, tolerated well. Denies any complaints of dizziness/ lightheadedness. Pt reports sternum feels aching, Tylenol administered as
ordered. Lab work obtained. Will continue to monitor.
[2024-06-06] MEDS: LR IV (06:09)
[2024-06-06 08:14] LABS: Hematocrit 22.1 % (39.0-52.0); Hemoglobin 6.7 g/dL (13.0-18.0); Mean Corp Hgb Conc. 30.3 g/dL (33.0-37.0); Mean Corpuscular Volume 89.1 fL (80.0-94.0); Mean Platelet Volume 9.7 fL (7.4-10.4); Platelet Count 115 10^3/uL (130-400); Red Blood Cell Count 2.48 10^6/uL (4.70-6.10); Red Cell Dist. Width 16.5 % (11.5-14.5); White Blood Cell Count 143.2 10^3/uL (4.8-10.8)
[2024-06-06] MEDS: OCEAN, SALINE MIST 1 SPRAYS NASAL ×3 (08:39→16:59)
[2024-06-06] MEDS: COLCHICINE 0.3 MG PO (08:39)
[2024-06-06] MEDS: BACTROBAN 2% OINTMENT 1 APPLIC NASAL ×2 (08:39→21:03)
[2024-06-06] MEDS: METAMUCIL, KONSYL 1 PACKET PO (08:40)
[2024-06-06] MEDS: PROTONIX 40 MG PO (08:40)
[2024-06-06] MEDS: PLAVIX 75 MG PO (08:40)
[2024-06-06] MEDS: SENOKOT-S 1 TABLET PO (08:40)
[2024-06-06] MEDS: NEURONTIN 100 MG PO ×3 (08:40→21:04)
[2024-06-06] MEDS: PACERONE 400 MG PO ×3 (08:41→21:04)
[2024-06-06] MEDS: LOW STRENGTH ASPIRIN 81 MG PO (08:41)
[2024-06-06] MEDS: TOPROL XL 12.5 MG PO ×2 (08:41→21:04)
[2024-06-06] MEDS: NORVASC 2.5 MG PO (08:41)
[2024-06-06] MEDS: LIDOCAINE 4% PATCH 1 PATCH TOPICAL (08:45)
[2024-06-06 10:19] LABS: Absolute Neutrophils -Man Diff 25.7 10^3/uL (1.4-6.5); Anisocytosis 1+; Band Neutrophils 6 % (0-3); Hypochromasia 1+; Lymphocytes 81 % (20-51); Myelocytes 1 % (-); Normal RBC Morphology No; Platelets Checked Yes; Polychromasia 1+; Segmented Neutrophils 12 % (42-75)
[2024-06-06 10:20] LABS: Rouleaux SLIGHT; Total Cells Counted 100
--- NOTE | 2024-06-06 12:17 | PTCARENOTE ---
1200- PRBC infusion started at 1145 via RIJ cordis. Pt reassessed at 1200, vss, patient without s/s of transfusion reaction. Will continue to monitor.
[2024-06-06] MEDS: NSS 500 IV (14:03)
[2024-06-06] MEDS: FERRLECIT 110 MG IV (14:04)
--- NOTE | 2024-06-06 15:29 | CHAP ---
Anmol was awake , watching TV, and seemed in good spirits. Denise arrived, and we spoke privately in the waiting area. She has good support from family and friends, and both she and Anmol are well grounded, taking things as they come.
Emotional and spiritual support provided.
--- NOTE | 2024-06-06 15:56 | PTCARENOTE ---
Patient NSR on gambling monitor, VSS. Pt ambulatory in room with 1 person assist. 1 u PRBCs transfused as ordered without s/s of transfusion reaction.
Will continue to monitor.
[2024-06-06] MEDS: CRESTOR 40 MG PO (16:35)
[2024-06-06] MEDS: SENOKOT-S PO (21:04)
[2024-06-06] MEDS: OCEAN, SALINE MIST 50 SPRAYS NASAL (21:05)
[2024-06-06] MEDS: ZOFRAN 4 MG IV (21:47)
[2024-06-07] VITALS (21 sets, daily range): BP systolic 103–168; BP diastolic 54–82; PULSE 85; O2SAT 93–95; BMI 27.9
--- NOTE | 2024-06-07 00:38 | W.PN.CT ---
Addendum entered and electronically signed by Diamond Chamberlain PA-C 06/07/24 14:08:
additional dx:
acute postop pulmonary insufficiency
Addendum entered and electronically signed by Timmy Wesley MD 06/07/24 08:46:
I saw and examined the patient.
The PA's note was reviewed and I agree with the note.
Comment:
Asymptomatic with anemia, which is multifactorial given his CLL history. Continue IV iron and vit C, just supportive care for now. Gentle diuresis, given renal status, mobilize as much as he can tolerate today.
Original Note:
Today's Communication / Plan
-
-No major issues overnight.
-BP improving, Lopressor switched to Toprol XL 12.5 mg
-Cont. Norvasc per Dr. Wesley given L radial graft
-s/p 1 U PRBC yesterday for Hgb 6.7->7.1 today
-Has postop acute pericarditis, s/p Colchicine. Completed 3 doses of Toradol
-Follow Cr, 1.9->1.8, 1.3-1.4 pre op
-Cont. current meds (ASA, Plavix, Norvasc, Crestor, Amio, Protonix, Toprol XL 12.5)
-Encourage use of IS
-Wean off of O2
-Maintain cordis
-OOB into chair/Ambulate
Assessment / Plan
-
- NSTEMI/ mv-CAD - s/p CABG x4 (In situ ZURITA to LAD, Ao to RSVG to diagonal, Ao to RSVG to RPDA, midportion of the RSVG of the RPDA to left radial artery the largest OM/LPL branch); LAAE [35 mm clip] on 06/03/[address] Wesley, pod #4
- Intraop ESTEFANY: LVEF preop 60-65% and postop 65%, no wma. COURTNEY verified to be free of any thrombus or debris preoperatively and totally occlusive postoperatively with the clip applied flush to the base.
- CLL
- Hypertension
- Hyperlipidemia
- HAYDEN without CPAP
- Prediabetes mellitus with hemoglobin A1c of 5.7
- Chronic thrombocytopenia
- CKD 3a (Cr 1.3-1.6 preop)
- Acute postop blood loss anemia
- Acute postop atelectasis
- Acute postop hypovolemia with subsequent hypervolemia
- Acute postop hypotension/orthostasis
- Acute postop AKILA
- Acute postop hyponatremia, 134
Subjective
-
Date of Service: June 07, 2024
Objective Data
-
PT 15.4 Sec (11.4-14.6) H 06/03/24 13:40
INR 1.17 06/03/24 13:40
APTT 25.5 Sec (23.4-35.0) 06/03/24 13:40
Vital Signs
Vital Signs
Temp Pulse Resp BP Pulse Ox
98.5 F 78 18 123/59 96
06/06/24 20:00 06/06/24 23:15 06/06/24 20:00 06/06/24 23:00 06/06/24 20:00
CT Intake/Output/Weight
06/06/24 06/06/24 06/07/24
06:59 18:59 06:59
Intake Total 1380 / 1935 400 / 400
Output Total 600 / 1525 520 / 820 300 / 820
Balance 780 / 410 -120 / -420 -300 / -420
SaO2: 96
Physical Exam
-
General: Awake, Oriented and AOx3
Cardiovascular: Regular rate & rhythm, No Murmurs and Rub
Respiratory: Clear and Equal
Sternum: Stable
Incision: Clean, Dry and Intact
Data Reviewed
-
Lab Results: Results Reviewed
Medications: Active Meds Reviewed
Chest X-Ray: Report Reviewed
ECG: Report Reviewed
[2024-06-07 04:36] LABS: Hematocrit 22.9 % (39.0-52.0); Hemoglobin 7.1 g/dL (13.0-18.0); Mean Corpuscular Hgb 27.3 pg (27.0-31.0); Mean Corpuscular Volume 88.1 fL (80.0-94.0); Mean Platelet Volume 9.5 fL (7.4-10.4); Platelet Count 134 10^3/uL (130-400); Red Cell Dist. Width 16.7 % (11.5-14.5); White Blood Cell Count 137.4 10^3/uL (4.8-10.8)
[2024-06-07 04:45] LABS: Blood Urea Nitrogen 59 mg/dl (9-20); Calcium 7.7 mg/dl (8.4-10.2); Carbon Dioxide 25 mmol/L (22-30); Chloride 103 mmol/L (98-107); Estimated Creatinine Clearance 39 ml/min; Glucose 112 mg/dl (70-99); Magnesium 3.6 mg/dl (1.6-2.3); Potassium 4.6 mmol/L (3.5-5.1); Sodium 137 mmol/L (135-145); eGFR 40.49
[2024-06-07] MEDS: TYLENOL 1000 MG PO ×2 (06:35→22:37)
--- NOTE | 2024-06-07 07:00 | PTCARENOTE ---
Bedside walking rounds report received. Patient seen on rounds oob in chair and tolerating well. NSR with PAC's. Oriented x 3. Just feels tired and wiped out with no appetite. Needs emotional encouragemnt that he is progressing in a good direction
day by day. Dr. Wesley also here on bedside rounds: new orders received: plan to as above and dc cordis catheter today. 1.5L nasal canula oxygen titrated to room air to maintain pulse ox greater than 90% See flowrecord for remaining assessments.
[2024-06-07] MEDS: LOW STRENGTH ASPIRIN 81 MG PO (07:42)
[2024-06-07] MEDS: PLAVIX 75 MG PO (07:42)
[2024-06-07] MEDS: LIDOCAINE 4% PATCH 1 PATCH TOPICAL (07:42)
[2024-06-07] MEDS: NEURONTIN 100 MG PO ×2 (07:45→22:52)
[2024-06-07] MEDS: SENOKOT-S PO ×2 (07:45→20:20)
[2024-06-07] MEDS: PACERONE 400 MG PO ×2 (07:45→22:53)
[2024-06-07] MEDS: NORVASC 2.5 MG PO (07:45)
[2024-06-07] MEDS: PROTONIX 40 MG PO (07:45)
[2024-06-07] MEDS: METAMUCIL, KONSYL PO (07:45)
[2024-06-07] MEDS: TOPROL XL 12.5 MG PO ×2 (07:46→20:20)
[2024-06-07] MEDS: BACTROBAN 2% OINTMENT 1 APPLIC NASAL (07:47)
--- NOTE | 2024-06-07 08:08 | W.PN.CD ---
Today's Communication / Plan
-
adding ezetimibe for residential management of lipids
Impression / Plan
-
68 year old male with HLD, CLL (not on treatment), pre-DM, HAYDEN, admitted with several weeks of intermittent chest discomfort and found to have NSTEMI with [facility] 05/31/24 revealing severe multi-vessel CAD. He is now s/p CABG.
S/p CABG on 06/03/2024 for NSTEMI with severe LV/2V CAD
- peak troponin 0.417, nml LVEF
- Intraop ESTEFANY showed new TR => echo in several months to followup on that finding
Pericarditis post-op
- +rub on exam, typical EKG changes
- s/p toradol and low dose Colchicine
AKILA on CKD
- peak 2.0 from baseline 1.2, improved to 1.8 today s/p hydration
- continue to monitor
Mixed hyperlipidemia
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
directly, serves as an added marker of risk to further motivate aggressive LDL lowering
- Goal LDL < 55 at least, came in on atorva with LDL well above 55, now rosuvastatin 40; starting ezetimibe 10 today; outpatient follow up lipids and if >55 will start PCSK9i
Post-op Anemia: s/p transfusion 1U pRBC, monitor
Pleural effusion: IR today to evaluate for thora
CLL: heme saw this hospitalization
Pre-DM
Elevated BP w/o dx of HTN
-LVH on echo suggest that he likely has HTN
-monitor BP's post-op
HAYDEN, not on treatment
BMI 27
Subjective:
Doing well. No compliants
TTE 05/31/24: Nml LV/RV syst fxn, no RWMA, mild cLVH/MR, AoV sclerosis =
LHC 05/31/24: Multi-vessel CAD including left main disease in setting of NSTEMI. Normal LV filling pressure and no aortic stenosis.
Physical Exam
Vital Signs/Labs
Vital Signs
Temp Pulse Resp BP Pulse Ox
37.1 C 83 18 134/58 92
06/07/24 07:17 06/07/24 07:17 06/07/24 07:17 06/07/24 07:17 06/07/24 07:17
06/06/24 06/07/24 06/08/24
06:59 06:59 06:59
Actual Weight 86.5 kg 85.6 kg
06/07/24 04:01
06/07/24 04:01
PT 15.4 Sec (11.4-14.6) H 06/03/24 13:40
INR 1.17 06/03/24 13:40
APTT 25.5 Sec (23.4-35.0) 06/03/24 13:40
Magnesium 3.6 mg/dl (1.6-2.3) H 06/07/24 04:01
Triglycerides 154 mg/dl (10-149) H 05/31/24 06:09
LDL Cholesterol, Calc 120 mg/dl 05/31/24 06:09
VLDL Cholesterol, Calc 30 mg/dl (0-30) 05/31/24 06:09
HDL Cholesterol 38 mg/dl 05/31/24 06:09
Physical Exam
Constitutional: No acute distress
Cardiovascular: Rhythm & rate is regular and Rub present
Respiratory: Respiratory effort normal
Neuro/Psych: AO x 3
Data Reviewed
-
Date of Service: June 07, 2024
Medical Decision Making: Reviewed Test Results
EKG: Tracing Personally Visualized and interpreted and Report Reviewed by me
Labs: Labs Reviewed by me
--- NOTE | 2024-06-07 09:00 | PTCARENOTE ---
IR procedure/ potential thoracentesis cancelled by CT surgery. Patient did go for 2 view cxr as ordered POD 4
[2024-06-07] MEDS: OCEAN, SALINE MIST 1 SPRAYS NASAL (09:45)
[2024-06-07] MEDS: ZETIA 10 MG PO (09:45)
[2024-06-07] MEDS: LASIX 20 MG IV (09:45)
--- NOTE | 2024-06-07 12:00 | PTCARENOTE ---
No acute changes. Vitals stable. Room air.
--- NOTE | 2024-06-07 13:52 | PN.CDI ---
CDI
- -
CDI:
Physician Documentation Request
Admit Date: 05/31/24 03:[address] surgery,
Clinical Indicators:
Patient admitted with NSTEMI;s/p CABG x4 & LAAE 06/03.
06/06 (05:47) RN note, 'POX 87% on Ra, 95%-98% on 2 LO2 NC.... CHRISTINE/ tachypneic.'
SaO2/02 demand:
06/05/24
13:30 06/05/24
14:30 06/06/24
02:45
SaO2 90 88 85
06/04/24
14:00 06/04/24
19:30 06/05/24
09:00
Nasal Cannula flow liters per minute 2 4 3
06/06/24
07:00 06/06/24
11:00 06/07/24
04:00
Oxygen Mode of Delivery Room air
Nasal Cannula flow liters per minute 2 2
Please clarify which of the following accurately represents the patient's respiratory status following surgery:
Acute pulmonary insufficiency (following surgery)
Hypoxia only
Other, please specify
Additional information for Pulmonary Insufficiency:
Consider when patients require termite control technician oxygen therapy postoperatively
Weaned off oxygen initially then requiring supplemental oxygen
No other definitive diagnosis to support the need for oxygen (COPD exac, CHF etc.)
Unable to wean from vent
When criteria for respiratory failure not present
May extend stay or require additional resources; may need home O2
Additional information for Respiratory Failure:
Recognized criteria for Respiratory Failure (Source: [facility] May 2013)
ABGs: (1 or more) Symptoms Indicate:
1. p)2 <60 or RA SPO2 <91% on RA 1. Tachypnea, SOB, dyspnea 1. Type as:
2. pCO2 50 and pH <7.35 2. Use of accessory muscles a. Hypoxic
3. pO2 decrease of pCO2 increase by 3. Pallor or cyanosis b. Hypercapnic
10 mmHg from baseline if known 4. Anxiety or restlessness 2. If due to procedure or due to another cause
5. Unable to speak in full sentences
Supplemental O2 of > 40% Intubation is not required
Use of terms such as suspected, likely, concern for, or probable (associated with a specific diagnosis that is being evaluated, monitored, or treated as if it exists) are acceptable and can be coded in the inpatient setting, when documented at the
time of discharge.
Thank you,
Anabel Liz RN BSN
CDI Specialist
available via tiger text
Please use your independent medical judgment in providing your response.
--- NOTE | 2024-06-07 14:14 | W.PN.ONC ---
Today's Communication / Plan
-
1 unit of packed cells yesterday. Hemoglobin 7.1 today. I will defer to the heart team regarding threshold for transfusion. I doubt hemolysis. His MCV was on the low end of normal recently, will check iron stores in the morning.
Impression
Impression
CLL, without indication for treatment
Hypogammaglobulinemia without infections complication
Acute coronary syndrome s/p CABG 06/03/24
Post operative acute on chronic leukocytosis
post operative anemia
chronic thrombocytopenia at baseline
Plan
Plan
CLL not a contraindication for planned revascularization surgery
Thank you for consult, will follow along with you.
Subjective/Objective
Subjective/Objective
He is feeling reasonably well. He reports no new symptoms. Examination is unchanged.
Vital Signs:
Vital Signs
Temp Pulse Resp BP Pulse Ox
99.4 F 81 18 109/61 87
06/07/24 12:00 06/07/24 13:00 06/07/24 12:00 06/07/24 12:07 06/07/24 12:07
Lab Results:
Laboratory Data
WBC 137.4 10^3/uL (4.8-10.8) H* 06/07/24 04:01
Hgb 7.1 g/dL (13.0-18.0) L 06/07/24 04:01
Plt Count 134 10^3/uL (130-400) 06/07/24 04:01
PT 15.4 Sec (11.4-14.6) H 06/03/24 13:40
INR 1.17 06/03/24 13:40
APTT 25.5 Sec (23.4-35.0) 06/03/24 13:40
eGFR 40.49 06/07/24 04:01
Orders
Orders
Orders From Last 24 Hours
06/08/24 06:00
Ferritin IN AM
Iron IN AM
Total Iron Binding IN AM
--- NOTE | 2024-06-07 14:30 | PTCARENOTE ---
Assisted patient back to bed. Right GRETCHEN velazquez dc.
[2024-06-07] MEDS: TYLENOL PO (14:47)
[2024-06-07] MEDS: OCEAN, SALINE MIST NASAL ×2 (14:47→17:29)
[2024-06-07] MEDS: NEURONTIN PO (16:02)
[2024-06-07] MEDS: PACERONE 200 MG PO (16:02)
--- NOTE | 2024-06-07 16:50 | PTCARENOTE ---
Ambulated hallway 200feet on room air. Mildly short of breath. Just feels tired and wiped out. Will continue to educate importance of OOB and ambulation.
[2024-06-07] MEDS: CRESTOR 40 MG PO (17:47)
[2024-06-07] MEDS: ZOFRAN 4 MG IV (18:58)
--- NOTE | 2024-06-07 20:51 | PTCARENOTE ---
Assumed pt care. Pt OOB in chair at time of assessment. AAO x 4, denies pain at time of assessment. Pt on RA, POX 93%, posterior BS diminished in B/L bases, IS performed to 1500 - encouraged, reports productive intermittent cough. NSR on monitor,
heart tones normal, pulses palpable, LUE +1, RUE +1, B/L DP +2. Pt tolerating OOB to chair, ambulating to bathroom. BS audible, reports poor appetite, nauseated at change of shift - PRN Zofran administered with alleviation. Voiding without issue.
Procedural sites LANDSCAPE SPECIALIST, intact. RUE & LUE ecchymotic. PIV x 1 present & patent. Family at bedside & updated with plan of care. See MAR.
[2024-06-07] MEDS: OCEAN, SALINE MIST 50 SPRAYS NASAL (22:52)
[2024-06-07] MEDS: MUCINEX 1200 MG PO (22:52)
--- NOTE | 2024-06-07 23:26 | PTCARENOTE ---
Pt assisted OOB. Ambulated to the bathroom, voided & BM x 1. Pt washed faced & assisted into bed. VS obtained. See MAR.
[2024-06-08] VITALS (17 sets, daily range): BP systolic 119–177; BP diastolic 56–96; PULSE 80; O2SAT 94; BMI 27.6
--- NOTE | 2024-06-08 03:33 | W.PN.CT ---
Today's Communication / Plan
-
Plan:
-No major issues overnight. Hemodynamically and neurologically intact
-Postop hypotension/orthostasis has resolved
-Tolerating Toprol XL 12.5 mg BID- will increase to 25 mg BID, on Norvasc 2.5 mg QD for radial graft,
-Received 1u PRBC on 06/06, h/h 7.3/23.7, was 7.1/22.9. Thrombocytopenia has resolved, plts 157K, was 134K yesterday. Hematology following
-Received Colchicine and Toradol for postop acute pericarditis, + rub
-Follow Cr, 1.8, was 1.8 yesterday, peaked to 2.0. Noted to be AKILA (1.4-1.6) 2 days before CABG, resolved before surgery
-Cont. current meds (ASA, Plavix, Norvasc, Crestor, Amio, Protonix, Toprol XL, Zetia added by Cardiology on 06/07)
-Cont. diuresis, wt up 5 lbs from preop yesterday, check wt today. Minimize fluid intake
-Has small bilateral pleural effusion/atelectasis on cxr 06/07. Looks improved today on my assessment. F/U official report
-Encourage use of IS
-Wean off of O2
-Maintain cordis
-OOB into chair/Ambulate
-Likely home tomorrow
Assessment / Plan
-
- NSTEMI/ mv-CAD - s/p CABG x4 (In situ ZURITA to LAD, Ao to RSVG to diagonal, Ao to RSVG to RPDA, midportion of the RSVG of the RPDA to left radial artery the largest OM/LPL branch); LAAE [35 mm clip] on 06/03/[address] Wesley, pod #5
- Intraop ESTEFANY: LVEF preop 60-65% and postop 65%, no wma. COURTNEY verified to be free of any thrombus or debris preoperatively and totally occlusive postoperatively with the clip applied flush to the base.
- CLL
- Hypertension
- Hyperlipidemia
- HAYDEN without CPAP
- Prediabetes mellitus with hemoglobin A1c of 5.7
- Chronic thrombocytopenia
- CKD 3a (Cr 1.3-1.6 preop)
- Acute postop blood loss anemia
- Acute postop atelectasis/pleural effusion
- Acute postop hypovolemia with subsequent hypervolemia
- Acute postop hypotension/orthostasis
- Acute postop AKILA
- Acute postop hyponatremia, 134
- Acute postop pulmonary insufficiency
Discussed patient care with: Cardiology, Nursing, Respiratory Therapy, Pharmacy and Care Team
Subjective
Procedure
s/p CABG x4 (In situ ZURITA to LAD, Ao to RSVG to diagonal, Ao to RSVG to RPDA, midportion of the RSVG of the RPDA to left radial artery the largest OM/LPL branch); LAAE [35 mm clip] on 06/03/[address] Wesley
-
Date of Service: June 08, 2024
Pt c/o feeling tired with ambulation yesterday, denies lightheadedness
Objective Data
-
PT 15.4 Sec (11.4-14.6) H 06/03/24 13:40
INR 1.17 06/03/24 13:40
APTT 25.5 Sec (23.4-35.0) 06/03/24 13:40
Vital Signs
Vital Signs
Temp Pulse Resp BP Pulse Ox
98.7 F 85 18 136/69 92
06/07/24 23:25 06/07/24 23:03 06/07/24 23:25 06/07/24 23:03 06/07/24 23:25
CT Intake/Output/Weight
06/07/24 06/07/24 06/08/24
06:59 18:59 06:59
Intake Total 825 / 825
Output Total 1000 / 1520 300 / 300
Balance -1000 / -1120 525 / 525
SaO2: 92 (RA)
Physical Exam
-
General: Awake, Oriented and AOx3
Cardiovascular: Regular rate & rhythm, No Murmurs and No Gallop
Respiratory: Decreased Breath Sounds
Sternum: Stable
Incision: Clean, Dry, Intact and Dressing Intact
Extremities: Edema +1 (LUE)
Data Reviewed
-
Lab Results: Results Reviewed
Medications: Active Meds Reviewed
Chest X-Ray: Report Reviewed and Image Reviewed
ECG: Report Reviewed and Image Reviewed
[2024-06-08 04:50] LABS: Ionized Calcium 1.08 mMOL/L (1.15-1.33)
[2024-06-08 05:05] LABS: Hematocrit 23.7 % (39.0-52.0); Hemoglobin 7.3 g/dL (13.0-18.0); Mean Corp Hgb Conc. 30.8 g/dL (33.0-37.0); Mean Corpuscular Hgb 28.2 pg (27.0-31.0); Mean Corpuscular Volume 91.5 fL (80.0-94.0); Mean Platelet Volume 9.1 fL (7.4-10.4); Platelet Count 157 10^3/uL (130-400); Red Blood Cell Count 2.59 10^6/uL (4.70-6.10); White Blood Cell Count 154.3 10^3/uL (4.8-10.8)
[2024-06-08 05:15] LABS: Blood Urea Nitrogen 54 mg/dl (9-20); Calcium 7.8 mg/dl (8.4-10.2); Carbon Dioxide 22 mmol/L (22-30); Chloride 105 mmol/L (98-107); Estimated Creatinine Clearance 39 ml/min; Glucose 112 mg/dl (70-99); Iron 51 ug/dl (49-181); Magnesium 3.5 mg/dl (1.6-2.3); Potassium 4.3 mmol/L (3.5-5.1); Sodium 139 mmol/L (135-145); eGFR 40.49
[2024-06-08 05:24] LABS: Percent Saturation 18 % (20-50); Total Iron Binding Capacity 269 ug/dl (261-462)
--- NOTE | 2024-06-08 06:03 | PTCARENOTE ---
VS obtained. Labs drawn & sent. Pt assisted to shower - tolerated without issue while sitting in chair. Voided in bathroom. Ambulated back to chair, weight obtained on standing scale. Pt remains OOB in chair. No other changes.
[2024-06-08] MEDS: TYLENOL 1000 MG PO ×3 (06:06→22:54)
[2024-06-08] MEDS: CALCIUM GLUCONATE 100 IV (06:41)
--- NOTE | 2024-06-08 08:00 | PTCARENOTE ---
Patient received from shift stacker RN; AAOx3, responds spontaneously to RN and follows commands; NSR on monitor; VSS; Right radial, left ulnar, and DP pulses present; SpO2 90% on RA; Lungs diminished at bases; Normoactive BS; Patient states diarrhea
is slowing down and denies nausea at this time; Poor appetite and refusing breakfast; Urinating in bathroom; Surgical sites intact; Trace B/L LE and RUE edema; #22 PIV present in RUE; PO Lasix 40 mg ordered and given; see nursing documentation for
further details.
[2024-06-08] MEDS: METAMUCIL, KONSYL PO (08:56)
[2024-06-08] MEDS: LOW STRENGTH ASPIRIN 81 MG PO (08:56)
[2024-06-08] MEDS: NEURONTIN PO (08:56)
[2024-06-08] MEDS: SENOKOT-S PO ×2 (08:56→19:50)
[2024-06-08] MEDS: NORVASC 2.5 MG PO ×2 (08:57→10:49)
[2024-06-08] MEDS: TOPROL XL 25 MG PO ×2 (08:57→19:50)
[2024-06-08] MEDS: PACERONE 200 MG PO ×3 (08:57→22:54)
[2024-06-08] MEDS: LASIX 40 MG PO (08:57)
[2024-06-08] MEDS: PLAVIX 75 MG PO (08:57)
[2024-06-08] MEDS: MUCINEX 600 MG PO ×2 (08:58→19:50)
[2024-06-08] MEDS: ZETIA 10 MG PO (08:58)
[2024-06-08] MEDS: PROTONIX 40 MG PO (08:58)
[2024-06-08] MEDS: LIDOCAINE 4% PATCH TOPICAL (08:59)
[2024-06-08] MEDS: OCEAN, SALINE MIST NASAL ×4 (08:59→22:54)
--- NOTE | 2024-06-08 11:39 | W.PN.CD ---
Today's Communication / Plan
-
Agree with care plans
Doing well
Hope to see Cr fall soon
Impression / Plan
-
68 year old male with HLD, CLL (not on treatment), pre-DM, HAYDEN, admitted with several weeks of intermittent chest discomfort and found to have NSTEMI with [facility] 05/31/24 revealing severe multi-vessel CAD. He is now s/p CABG.
S/p CABG on 06/03/2024 for NSTEMI with severe LV/2V CAD
- peak troponin 0.417, nml LVEF
- Intraop ESTEFANY showed new TR => echo in several months to followup on that finding
- Plan snf ASA and 1 year of clopidogrel
Pericarditis post-op
- +rub on exam, typical EKG changes
- low dose Colchicine
AKILA on CKD
- peak 2.0 from baseline 1.2, improved to 1.8 today s/p hydration
- continue to monitor
Mixed hyperlipidemia
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
directly, serves as an added marker of risk to further motivate aggressive LDL lowering
- Goal LDL < 55 at least, came in on atorva with LDL well above 55, now rosuvastatin 40; starting ezetimibe 10 today; outpatient follow up lipids and if >55 will start PCSK9i
Post-op Anemia: s/p transfusion 1U pRBC, monitor
Pleural effusion: IR today to evaluate for thora
CLL: heme saw this hospitalization
Pre-DM
Elevated BP w/o dx of HTN
-LVH on echo suggest that he likely has HTN
-monitor BP's post-op
HAYDEN, not on treatment
BMI 27
Subjective:
Walking in [place] and up stairs!
TTE 05/31/24: Nml LV/RV syst fxn, no RWMA, mild cLVH/MR, AoV sclerosis =
LHC 05/31/24: Multi-vessel CAD including left main disease in setting of NSTEMI. Normal LV filling pressure and no aortic stenosis.
Physical Exam
Vital Signs/Labs
Vital Signs
Temp Pulse Resp BP Pulse Ox
98.1 F 89 18 161/80 95
06/08/24 07:48 06/08/24 10:17 06/08/24 07:48 06/08/24 10:17 06/08/24 10:18
06/07/24 06/08/24 06/09/24
06:59 06:59 06:59
Actual Weight 85.6 kg 84.8 kg
06/08/24 04:42
06/08/24 04:42
PT 15.4 Sec (11.4-14.6) H 06/03/24 13:40
INR 1.17 06/03/24 13:40
APTT 25.5 Sec (23.4-35.0) 06/03/24 13:40
Magnesium 3.5 mg/dl (1.6-2.3) H 06/08/24 04:42
Triglycerides 154 mg/dl (10-149) H 05/31/24 06:09
LDL Cholesterol, Calc 120 mg/dl 05/31/24 06:09
VLDL Cholesterol, Calc 30 mg/dl (0-30) 05/31/24 06:09
HDL Cholesterol 38 mg/dl 05/31/24 06:09
Physical Exam
Constitutional: No acute distress
EENT: Anicteric
Cardiovascular: Rhythm & rate is regular and Pedal edema is absent
Respiratory: Respiratory effort normal
Neuro/Psych: AO x 3 and Motor deficits absent
Data Reviewed
-
Date of Service: June 08, 2024
--- NOTE | 2024-06-08 12:00 | PTCARENOTE ---
Patient did stairs with cardiac rehab; VSS; no complaints of dizziness or lightheadedness during ambulation.
--- NOTE | 2024-06-08 15:16 | W.PN.ONC2 ---
Today's Communication / Plan
-
OP follow up with Dr. Ross will be arranged upon discharge
Impression
Impression
CLL, without indication for treatment
Hypogammaglobulinemia without infections complication
Acute coronary syndrome s/p CABG 06/03/24
post operative pericarditis
pleural effusion
Post operative acute on chronic leukocytosis
post operative anemia s/p 1 unit prbc 06/06 for Hgb 6.7g/dL->7.3g/dL today. No role for iron repletion with ferritin 750
chronic thrombocytopenia at baseline
AKILA
Subjective/Objective
Subjective
no new complaints
denies overt bleeding
Denise at bedside during visit
Vital Signs:
Vital Signs
Temp Pulse Resp BP Pulse Ox
98.2 F 90 16 138/58 96
06/08/24 11:42 06/08/24 12:19 06/08/24 11:42 06/08/24 12:19 06/08/24 12:00
Lab Results:
Laboratory Data
WBC 154.3 10^3/uL (4.8-10.8) H* 06/08/24 04:42
Hgb 7.3 g/dL (13.0-18.0) L 06/08/24 04:42
Plt Count 157 10^3/uL (130-400) 06/08/24 04:42
PT 15.4 Sec (11.4-14.6) H 06/03/24 13:40
INR 1.17 06/03/24 13:40
APTT 25.5 Sec (23.4-35.0) 06/03/24 13:40
eGFR 40.49 06/08/24 04:42
Physical Exam
HEENT: Moist Mucous Membranes; No Jaundice
Cardiology: S1 and S2
Pulmonary: Clear
GI: Soft
Extremities: No Edema. Confluent purpura b/l forearms
Neuro: Non Focal
--- NOTE | 2024-06-08 16:00 | PTCARENOTE ---
Patient ambulating in hallway with RN; VSS; patient tolerating activity without complaint
[2024-06-08] MEDS: CRESTOR 40 MG PO (17:30)
--- NOTE | 2024-06-08 18:08 | PTCARENOTE ---
Patient ambulating in hallway with RN; VSS; patient tolerating activity without complaint
--- NOTE | 2024-06-08 20:00 | PTCARENOTE ---
Assumed care of patient at 1900. Patient found OOB in chair at time of assessment with family at bedside. Patient is AOx4, follows commands appropriately, moves all extremities. Lung sounds are diminished in the bases, saO2 94% on RA. Heart sounds
have a regular rate and rhythm, patient is in NSR on the monitor, normal palpable R radial, normal palpable L ulnar, and normal palpable pedal pulses. Patient has +1 LUE edema. Patient has active BS in all four quadrants and reports loose diarrhea
like BMs. Patient is voiding in the bathroom. Patient has a 22G PIV available for intermittent infusion in the RUE. 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
There is a LUE incision approx with surg adhesive SINDI and R groin puncture approx with surg adhesive TAILER OFF. Assisted patient back to bed without incident. VSS. No c/o pain.
--- NOTE | 2024-06-09 | PTCARENOTE ---
Patient reassessed. Patient c/o oozing out of CT wound sites. Sites cleaned and ABD dressing applied. CT PA aware. Patient with successful void and BM. Remains in SR on the monitor. No c/o pain. Patient is stable.
[2024-06-09 03:00] VITALS: BP 151/64
--- NOTE | 2024-06-09 04:19 | W.PN.CT ---
Addendum entered and electronically signed by Regis Greco MD 06/09/24 08:10:
I saw and examined the patient.
The PA's note was reviewed and I agree with the note.
Comment:
Patient looks great today. Did not sleep well overnight last night.
Okay for discharge today.
Outpatient CBC in 1 week
Original Note:
Today's Communication / Plan
-
Plan:
-No major issues overnight. Hemodynamically and neurologically intact
-Postop hypotension/orthostasis has resolved
-Tolerating increased Toprol XL 25 mg BID, and Norvasc 5 mg Daily for radial graft
-Received 1u PRBC on 06/06, h/h 6.9/23.4 today, was 7.3/23.7 yesterday.. Thrombocytopenia has resolved, plts 187K, [id number] yesterday. Hematology following
-Received Colchicine and Toradol for postop acute pericarditis, + rub
-Cr 1.7, was 1.8 yesterday, peaked to 2.0. Noted to be AKILA (1.4-1.6) 2 days before CABG, resolved before surgery
-Check wt today and consider PO lasix
-Cont. current meds (ASA, Plavix, Norvasc, Crestor, Amio, Protonix, Toprol XL, Zetia added by Cardiology on 06/07)
-Has small bilateral pleural effusion/atelectasis on cxr 06/07. Looks improved today on my assessment. F/U official report
-Encourage use of IS
-OOB into chair/Ambulate
-Home today
Assessment / Plan
-
- NSTEMI/ mv-CAD - s/p CABG x4 (In situ ZURITA to LAD, Ao to RSVG to diagonal, Ao to RSVG to RPDA, midportion of the RSVG of the RPDA to left radial artery the largest OM/LPL branch); LAAE [35 mm clip] on 06/03/[address] Wesley, pod #6
- Intraop ESTEFANY: LVEF preop 60-65% and postop 65%, no wma. COURTNEY verified to be free of any thrombus or debris preoperatively and totally occlusive postoperatively with the clip applied flush to the base.
- CLL
- Hypertension
- Hyperlipidemia
- HAYDEN without CPAP
- Prediabetes mellitus with hemoglobin A1c of 5.7
- Chronic thrombocytopenia
- CKD 3a (Cr 1.3-1.6 preop)
- Acute postop blood loss anemia
- Acute postop atelectasis/pleural effusion
- Acute postop hypovolemia with subsequent hypervolemia
- Acute postop hypotension/orthostasis
- Acute postop AKILA
- Acute postop hyponatremia, 134
- Acute postop pulmonary insufficiency
Discussed patient care with: Cardiology, Nursing, Respiratory Therapy, Pharmacy and Care Team
Subjective
Procedure
s/p CABG x4 (In situ ZURITA to LAD, Ao to RSVG to diagonal, Ao to RSVG to RPDA, midportion of the RSVG of the RPDA to left radial artery the largest OM/LPL branch); LAAE [35 mm clip] on 06/03/[address] Wesley
-
Date of Service: June 09, 2024
Pt c/o mild incisional pain, otherwise feels well. Ambulating halls without difficulty
Objective Data
-
Lab Results
06/08/24 04:42
06/08/24 04:42
PT 15.4 Sec (11.4-14.6) H 06/03/24 13:40
INR 1.17 06/03/24 13:40
APTT 25.5 Sec (23.4-35.0) 06/03/24 13:40
Vital Signs
Vital Signs
Temp Pulse Resp BP Pulse Ox
98.3 F 76 20 145/66 92
06/08/24 23:32 06/09/24 02:00 06/08/24 23:32 06/08/24 23:32 06/08/24 23:32
CT Intake/Output/Weight
06/08/24 06/08/24 06/09/24
06:59 18:59 06:59
Intake Total 550 / 1375 600 / 840 240 / 840
Output Total 550 / 550
Balance 550 / 1075 50 / 290 240 / 290
SaO2: 92 (RA)
Physical Exam
-
General: Awake, Oriented and AOx3
Cardiovascular: Regular rate & rhythm, No Murmurs, Rub and No Gallop
Respiratory: Decreased Breath Sounds (at bases, otherwise clear)
Sternum: Stable
Incision: Clean, Dry, Intact and Dressing Intact
Extremities: Edema +1 (LUE)
Data Reviewed
-
Lab Results: Results Reviewed
Medications: Active Meds Reviewed
Chest X-Ray: Report Reviewed and Image Reviewed
ECG: Report Reviewed and Image Reviewed
[2024-06-09 04:42] VITALS: BP 151/64
--- NOTE | 2024-06-09 04:45 | PTCARENOTE ---
Patient reassessed. VSS. No c/o pain. Assisted patient oob to chair with minimal assistance. Successful void in bathroom. AM labs obtained. Patient stable.
[2024-06-09] MEDS: TYLENOL 1000 MG PO (05:10)
[2024-06-09 05:21] LABS: Hematocrit 23.4 % (39.0-52.0); Hemoglobin 6.9 g/dL (13.0-18.0); Mean Corp Hgb Conc. 29.5 g/dL (33.0-37.0); Mean Corpuscular Hgb 27.9 pg (27.0-31.0); Mean Corpuscular Volume 94.7 fL (80.0-94.0); Mean Platelet Volume 9.4 fL (7.4-10.4); Platelet Count 187 10^3/uL (130-400); Red Blood Cell Count 2.47 10^6/uL (4.70-6.10); Red Cell Dist. Width 18.4 % (11.5-14.5); White Blood Cell Count 149.4 10^3/uL (4.8-10.8)
[2024-06-09 05:32] LABS: Blood Urea Nitrogen 51 mg/dl (9-20); Calcium 8.1 mg/dl (8.4-10.2); Carbon Dioxide 23 mmol/L (22-30); Chloride 106 mmol/L (98-107); Estimated Creatinine Clearance 42 ml/min; Glucose 108 mg/dl (70-99); Magnesium 3.1 mg/dl (1.6-2.3); Potassium 4.3 mmol/L (3.5-5.1); Sodium 140 mmol/L (135-145); eGFR 43.37
--- NOTE | 2024-06-09 06:33 | PTCARENOTE ---
Critical hgb 6.9. PA notified. No new orders at this time.
[2024-06-09 08:09] VITALS: BP 93/39
[2024-06-09 08:10] VITALS: BP 127/74
[2024-06-09 08:14] VITALS: BMI 27.7
--- NOTE | 2024-06-09 09:10 | W.PN.ONC2 ---
Today's Communication / Plan
-
Stable for D/C. Outpt CLL follow up next month.
Impression
Impression
CLL, without indication for treatment
Hypogammaglobulinemia without infections complication
Acute coronary syndrome s/p CABG 06/03/24
post operative pericarditis
pleural effusion
Post operative acute on chronic leukocytosis
post operative anemia s/p 1 unit prbc 06/06 for Hgb 6.7g/dL->7.3g/dL today. No role for iron repletion with ferritin 750
chronic thrombocytopenia at baseline
AKILA
Plan
Plan
anemia post op and stable. Okay for D/C without transfusion.
Subjective/Objective
Chief Complaint
ACS Heme Onc
Subjective
No complaints. Post op anemia with HgB ~ 7 and stable. For D/C pending my approval.
Vital Signs:
Vital Signs
Temp Pulse Resp BP Pulse Ox
98 F 74 17 127/74 93
06/09/24 08:13 06/09/24 08:13 06/09/24 08:13 06/09/24 08:10 06/09/24 08:33
Lab Results:
Laboratory Data
WBC 149.4 10^3/uL (4.8-10.8) H* 06/09/24 04:51
Hgb 6.9 g/dL (13.0-18.0) L* 06/09/24 04:51
Plt Count 187 10^3/uL (130-400) 06/09/24 04:51
PT 15.4 Sec (11.4-14.6) H 06/03/24 13:40
INR 1.17 06/03/24 13:40
APTT 25.5 Sec (23.4-35.0) 06/03/24 13:40
eGFR 43.37 06/09/24 04:51
Physical Exam
Cardiology: S1 and S2
Pulmonary: Clear
GI: Soft
Extremities: No C/C/E
[2024-06-09] MEDS: METAMUCIL, KONSYL PO (09:19)
[2024-06-09] MEDS: LIDOCAINE 4% PATCH TOPICAL (09:19)
[2024-06-09] MEDS: SENOKOT-S PO (09:19)
--- NOTE | 2024-06-09 09:20 | W.DCSUMMARY ---
Discharge Summary
Discharge Data
Date of Admission: 05/31/24
Date of Discharge: 06/09/24
-
Pending Results: No
Hospital Course
Primary care physician: Duy Bustillo
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
Inpatient consultants: [facility] cardiology, Hem/onc- Dr. Ross
Procedures:
1. 05/31/24 left heart catheterization- Dr. Simba Casillas
2. 06/03/24 coronary artery bypass grafting x4 (ZURITA-LAD, SVG-D1, SVG-RPDA, Left radial artery-OM [prox off SVG padron]), exclusion of left atrial appendage #35 clip
Primary Diagnosis:
1. non STEMI
2. multivessel coronary artery disease
Secondary Diagnoses:
1. CLL, not on active treatment
2. Hypertension
3. Hyperlipidemia
4. HAYDEN without CPAP
5. Prediabetes mellitus with hemoglobin A1c of 5.7
6. Chronic thrombocytopenia
7. postop AKILA on CKD 3a (Cr 1.3-1.6 preop), discharge creat 1.8
8. Acute postop blood loss anemia
9. Acute postop hypotension/orthostasis, resolved
HPI: Pt is a 68y/oM who presented to the ED with worsening chest pain, ruled in for NSTEMI & underwent LHC which revealed multivessel coronary artery disease. Hem/Onc was consulted and cleared patient for planned CABG. After all preoperative workup
was completed he was deemed a suitable candidate for surgery.
Hospital course: Patient proceeded to the CV[facility] 06/03/24 where he underwent CABG x4 and ELAA by Dr. Timmy Wesley without any perioperative complications. He transferred to CVICU on levophed at 6, precedex & insulin. postop EKG demonstrated diffuse ST
elevations consistent with acute pericarditis. He remained hemodynamically stable overnight. On postop day 1 he was started on low-dose beta-citlali and Norvasc for his radial graft, both of which were held due to orthostasis throughout the day.
He was started on low-dose midodrine that evening and given some volume. EKG continued to show diffuse ST elevations consistent with pericarditis, he was started on colchicine and Toradol at that time. On postop day 2 his creatinine jumped from
1.2-2.1, Toradol and colchicine were stopped. He was hydrated overnight with LR. Orthostasis improved and he tolerated low-dose beta-citlali. Temporary pacing wires and chest tubes were discontinued without incident. On postop day 3 creatinine
is improving, but hemoglobin dropped to 6.7 likely secondary to some hemodilution. He was transfused 1 unit of packed red blood cells. He continues to tolerate beta-citlali without continued orthostasis. On postop day 4 he remains in sinus rhythm
2 view chest x-ray demonstrated small bilateral effusions. He remains on low-dose oxygen supplementation and was gently diuresed with 20 mg of IV Lasix. Creatinine is stable at 1.8. On postop day 5 he is ambulatory and off oxygen, improving
significantly. He was given a dose of p.o. Lasix. On postop day 6 he remains in sinus rhythm with good sats on room air. He is discharged to home with close follow-up with the transitional care nurse and [facility]. Hemoglobin on day of
discharge was 6.9, patient remains asymptomatic and cleared by hematology for discharge. He will have a repeat CBC to check hemoglobin and BMP to check creatinine in 1 week.
Home medication changes: Lipitor changed to Crestor per cardiology. All other prescriptions are new.
Discharge Plan
-
Patient Disposition: Home (Routine Discharge)
Discharge Diagnosis/Procedures: NSTEMI, coronary artery disease s/p coronary artery bypass grafting x4, exclusion of left atrial appendage
Condition: Good
Diet: Low Fat and Low Cholesterol
Activity: No strenuous activity
Driving Restrictions: Not until seen by your Dr
Bathing Restrictions: OK to Shower
Blood Work: have CBC & BMP drawn in 1 week
Other Services: Cardiac Rehab
Specialty Instructions: Weigh Daily- Call MD for wt gain/loss 3 lbs overnight/5 lbs in 1 week
Activity Restrictions/Additional Instructions:
ACTIVITY:
-No strenuous activity: no heavy lifting, pushing, pulling anything over 15 pounds for one month
-continue to use stairs as tolerated
DRIVING RESTRICTIONS:
-No driving for one month or until approved by your surgeon
WOUND CARE:
-Shower daily. Use soap & water.
-No lotions, creams or powders on incision area.
DIET:
-continue a low fat/low cholesterol diet.
-IF you are diabetic, continue carb controlled diet.
CARDIAC REHAB:
-Please make appointment to start in 5-6 weeks with your local hospital program. (See Cardiac Rehabilitation Discharge Booklet).
SPECIALTY INSTRUCTIONS:
-Weigh yourself daily. Call your physician for any weight gain/loss of 3 lbs overnight or 5 lbs in one week.
-REPORT any clicking noise or uneven appearance of your sternum to your surgeon immediately.
-If you smoke, you are instructed to quit. The [place] smoking hotline phone number is [phone]
Referrals:
CT Transitional Care Nurse [Outside] (The Cardiothoracic Transitional Care Nurse will call you to set up a visit in 1-2 days.)
[facility]. Cardiac Rehab [Outside] - 07/16/24 9:30 am
(Cardiac Rehab Orientation appointment is on 07/16/24 at 9:30
The Cardiac Rehab gym is located on the first floor of the [facility].)
Crystal Cazares NP [Specified Professional Personl] - 07/13/24 9:40 am
Duy Bustillo MD [Family Provider] -
Hannah Rene CRNP [Specified Professional Personl] - in one month
Timmy Wesley MD [Active] - 07/01/24 3:00 pm
Prescriptions:
New
clopidogrel 75 mg Tablet
75 mg PO DAILY Qty: 30 1RF
amlodipine 5 mg Tablet
5 mg PO DAILY Qty: 30 1RF
ezetimibe 10 mg Tablet
10 mg PO DAILY Qty: 30 1RF
metoprolol succinate [Toprol XL] 50 mg tablet extended release 24 hr
50 mg PO DAILY Qty: 30 1RF
acetaminophen 325 mg Tablet
650 mg PO Q6HPRN PRN (Reason: mild pain,headache,temp >101F ) Qty: 0 0RF
sennosides-docusate sodium 8.6-50 mg Tablet
1 tab PO Q12 PRN (Reason: Constipation) Qty: 0 0RF
aspirin 81 mg Tablet,Chewable
81 mg PO DAILY Qty: 0 0RF
rosuvastatin 40 mg Tablet
40 mg PO QPM Qty: 30 1RF
Continued
Metamucil
1 tbsp PO DAILY
Discontinued
atorvastatin 40 mg Tablet
40 mg PO HS
Discharge Orders:
Discharge Patient (As Directed); Ordered 06/09/24
Ordered By: Diamond Chamberlain
Care Plan Goals
Care Plan Goals:
Problem: Readiness for enhanced knowledge related to diagnosis and treatment plan
Goal: Understand your diagnosis and treatment plan needs, including medications if applicable.
Instructions: Know your diagnosis, underlying causes and treatment plan options, including medications if applicable. Consult with your health care team to learn about your diagnosis and treatment plan, including medications if applicable.
Discharge Date and Time
Print Language: DANISH
[2024-06-09] MEDS: LOW STRENGTH ASPIRIN 81 MG PO (09:21)
[2024-06-09] MEDS: PROTONIX 40 MG PO (09:21)
[2024-06-09] MEDS: ZETIA 10 MG PO (09:22)
[2024-06-09] MEDS: TOPROL XL 25 MG PO ×2 (09:22)
[2024-06-09] MEDS: MUCINEX 600 MG PO (09:22)
[2024-06-09] MEDS: NORVASC 5 MG PO (09:22)
[2024-06-09] MEDS: PACERONE 200 MG PO (09:22)
[2024-06-09] MEDS: PLAVIX 75 MG PO (09:22)
[2024-06-09] MEDS: OCEAN, SALINE MIST NASAL (09:23)
--- NOTE | 2024-06-09 09:31 | PTCARENOTE ---
Patient received from overnight associate resting oob in chair, AAO X 3, states pain controlled. NSR via cm, SaO2 @ 93% on RA. All procedural sites stable. Patient updated to plan of care for the day, including pending d/c home, in agreement. See work list
for full assessment and interventions performed.
--- NOTE | 2024-06-09 09:35 | W.PN.CD ---
Today's Communication / Plan
-
Agree with care
OK for home from our perspective
Impression / Plan
-
68 year old male with HLD, CLL (not on treatment), pre-DM, HAYDEN, admitted with several weeks of intermittent chest discomfort and found to have NSTEMI with LHC 05/31/24 revealing severe multi-vessel CAD. He is now s/p CABG.
S/p CABG on 06/03/2024 for NSTEMI with severe LV/2V CAD
- peak troponin 0.417, nml LVEF
- Intraop ESTEFANY showed new TR => echo in several months to followup on that finding will be considered
- Plan alf ASA and 1 year of clopidogrel
Pericarditis post-op
- +rub on exam, typical EKG changes
- low dose Colchicine
AKILA on CKD
- peak 2.0 from baseline 1.2, improved to 1.8 and now 1.7
- continue to monitor
Mixed hyperlipidemia
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
directly, serves as an added marker of risk to further motivate aggressive LDL lowering
- Goal LDL < 55 at least, came in on atorva with LDL well above 55, now rosuvastatin 40; starting ezetimibe 10 today; outpatient follow up lipids and if >55 will start PCSK9i
Post-op Anemia: s/p transfusion 1U pRBC, monitor
Pleural effusion: IR today to evaluate for thora
CLL: heme saw this hospitalization
Pre-DM
Elevated BP w/o dx of HTN
-LVH on echo suggest that he likely has HTN
-monitor BP's post-op
HAYDEN, not on treatment
BMI 27
Subjective:
Eager for home
TTE 05/31/24: Nml LV/RV syst fxn, no RWMA, mild cLVH/MR, AoV sclerosis =
LHC 05/31/24: Multi-vessel CAD including left main disease in setting of NSTEMI. Normal LV filling pressure and no aortic stenosis.
Physical Exam
Vital Signs/Labs
Vital Signs
Temp Pulse Resp BP Pulse Ox
98 F 80 17 127/74 93
06/09/24 08:13 06/09/24 09:22 06/09/24 08:13 06/09/24 09:22 06/09/24 08:33
06/08/24 06/09/24 06/10/24
06:59 06:59 06:59
Actual Weight 84.8 kg 84.9 kg
06/09/24 04:51
06/09/24 04:51
PT 15.4 Sec (11.4-14.6) H 06/03/24 13:40
INR 1.17 06/03/24 13:40
APTT 25.5 Sec (23.4-35.0) 06/03/24 13:40
Magnesium 3.1 mg/dl (1.6-2.3) H 06/09/24 04:51
Triglycerides 154 mg/dl (10-149) H 05/31/24 06:09
LDL Cholesterol, Calc 120 mg/dl 05/31/24 06:09
VLDL Cholesterol, Calc 30 mg/dl (0-30) 05/31/24 06:09
HDL Cholesterol 38 mg/dl 05/31/24 06:09
Physical Exam
Constitutional: No acute distress
EENT: Anicteric
Cardiovascular: Rhythm & rate is regular and Pedal edema is absent
Respiratory: Respiratory effort normal and Lungs clear to auscul.
GI: Soft and Distention absent
Neuro/Psych: AO x 3 and Motor deficits absent
Data Reviewed
-
Date of Service: June 09, 2024
[2024-06-09 10:30] VITALS: BP 137/73
== END 2024-06-09 11:19 | disposition home or self-care (01) | DRG 233 ==
LOC: CVICU 03:49
PROVIDERS: Anesthesiology; Clinical Nurse Specialist Acute Care; Family Medicine; Internal Medicine Hematology & Oncology; Nurse Practitioner; Physician Assistant Medical; Student in an Organized Health Care Education/Training Program; ADMITTING PHYSICIAN Hospitalist; ATTENDING PHYSICIAN Thoracic Surgery (Cardiothoracic Vascular Surgery); CONSULT PHYSICIAN Internal Medicine Critical Care Medicine; EMERGENCY PHYSICIAN Student in an Organized Health Care Education/Training Program; FAMILY PHYSICIAN Internal Medicine; OTHER PHYSICIAN Internal Medicine Cardiovascular Disease; OTHER PHYSICIAN Internal Medicine Hematology & Oncology
PROC: B2151ZZ Fluoroscopy of Left Heart using Low Osmolar Contrast (ICD-10-PCS; 2024-05-31)
PROC: B2111ZZ Fluoroscopy of Multiple Coronary Arteries using Low Osmolar Contrast (ICD-10-PCS; 2024-05-31)
PROC: 4A023N7 Measurement of Cardiac Sampling and Pressure, Left Heart, Percutaneous Approach (ICD-10-PCS; 2024-05-31)
PROC: 02L70CK Occlusion of Left Atrial Appendage with Extraluminal Device, Open Approach (ICD-10-PCS; 2024-06-03)
PROC: 02100Z9 Bypass Coronary Artery, One Artery from Left Internal Mammary, Open Approach (ICD-10-PCS; 2024-06-03)
PROC: 06BP4ZZ Excision of Right Saphenous Vein, Percutaneous Endoscopic Approach (ICD-10-PCS; 2024-06-03)
PROC: 03BC4ZZ Excision of Left Radial Artery, Percutaneous Endoscopic Approach (ICD-10-PCS; 2024-06-03)
PROC: B24BZZ4 Ultrasonography of Heart with Aorta, Transesophageal (ICD-10-PCS; 2024-06-03)
PROC: 021109W Bypass Coronary Artery, Two Arteries from Aorta with Autologous Venous Tissue, Open Approach (ICD-10-PCS; 2024-06-03)
PROC: 5A1221Z Performance of Cardiac Output, Continuous (ICD-10-PCS; 2024-06-03)
PROC: 02100AW Bypass Coronary Artery, One Artery from Aorta with Autologous Arterial Tissue, Open Approach (ICD-10-PCS; 2024-06-03)
PROC: 30233N1 Transfusion of Nonautologous Red Blood Cells into Peripheral Vein, Percutaneous Approach (ICD-10-PCS; 2024-06-06)
DX: I21.4 Non-ST elevation (NSTEMI) myocardial infarction (principal); J95.1 Acute pulmonary insufficiency following thoracic surgery; C91.10 Chronic lymphocytic leukemia of B-cell type not having achieved remission; D80.1 Nonfamilial hypogammaglobulinemia; N17.9 Acute kidney failure, unspecified; D62 Acute posthemorrhagic anemia; I30.9 Acute pericarditis, unspecified; J98.11 Atelectasis; J91.8 Pleural effusion in other conditions classified elsewhere; E87.1 Hypo-osmolality and hyponatremia; I25.10 Atherosclerotic heart disease of native coronary artery without angina pectoris; D69.59 Other secondary thrombocytopenia; K21.00 Gastro-esophageal reflux disease with esophagitis, without bleeding; G47.33 Obstructive sleep apnea (adult) (pediatric); R73.03 Prediabetes; D69.6 Thrombocytopenia, unspecified; N99.0 Postprocedural (acute) (chronic) kidney failure; N18.31 Chronic kidney disease, stage 3a; E78.2 Mixed hyperlipidemia; I95.81 Postprocedural hypotension; E87.70 Fluid overload, unspecified; I12.9 Hypertensive chronic kidney disease with stage 1 through stage 4 chronic kidney disease, or unspecified chronic kidney disease; E86.0 Dehydration; Y83.2 Surgical operation with anastomosis, bypass or graft as the cause of abnormal reaction of the patient, or of later complication, without mention of misadventure at the time of the procedure; M17.0 Bilateral primary osteoarthritis of knee; Z11.52 Encounter for screening for COVID-19; Z79.899 Other long term (current) drug therapy; Z82.49 Family history of ischemic heart disease and other diseases of the circulatory system; Z86.0100 Personal history of colon polyps, unspecified; Z91.198 Patient's noncompliance with other medical treatment and regimen for other reason
CPT/HCPCS: 88305; 71045; 71046; 71275; 80048; 80053; 80061; 81003; 81015; 82248; 82330; 82565; 82728; 82784; 82805; 82810; 82947; 82962; 83036; 83540; 83550; 83615; 83695; 83735; 84132; 84155; 84165; 84302; 84484; 84520; 85014; 85018; 85025; 85027; 85049; 85347; 85384; 85576; 85610; 85730; 86334; 86850; 86900; 86901; 86920; 87811; 88341; 88342; 93005; 93306; 93312; 93320; 93325; 93458; 93880; 93923; 93930; 93931; 94002; 96361; 96365; 99285; C1894; J2916; P9016; P9045; Q9967

== ENCOUNTER → 2024-06-16 09:31 | Outpatient (REF) | payer MEDICARE, SELFPAY ==
[2024-06-16 10:57] LABS: Hematocrit 34.1 % (39.0-52.0); Mean Corp Hgb Conc. 29.3 g/dL (33.0-37.0); Mean Corpuscular Hgb 27.9 pg (27.0-31.0); Mean Corpuscular Volume 95.3 fL (80.0-94.0); Mean Platelet Volume 8.5 fL (7.4-10.4); Platelet Count 362 10^3/uL (130-400); Red Blood Cell Count 3.58 10^6/uL (4.70-6.10); Red Cell Dist. Width 18.3 % (11.5-14.5); White Blood Cell Count 127.7 10^3/uL (4.8-10.8)
[2024-06-16 11:13] LABS: Blood Urea Nitrogen 24 mg/dl (9-20); Calcium 9.2 mg/dl (8.4-10.2); Carbon Dioxide 24 mmol/L (22-30); Chloride 106 mmol/L (98-107); Glucose 103 mg/dl (70-99); Potassium 4.9 mmol/L (3.5-5.1); Sodium 141 mmol/L (135-145); eGFR 54.75
[2024-06-16 13:37] LABS: % Basophils 0.1 % (0-2); % Eosinophils 0.2 % (0-6); % Immature Granulocytes 1.1 % (0-0.5); % Lymphocytes 87.9 % (20.5-51.1); % Monocytes 2.4 % (1.7-9.3); % Neutrophils 8.3 % (42.2-75.2)
[2024-06-16 13:38] LABS: Absolute Basophils 0.1 10^3/uL (0-0.2); Absolute Eosinophils 0.3 10^3/uL (0-0.7); Absolute Lymphocytes 112.2 10^3/uL (1.2-3.4); Absolute Monocytes 3.1 10^3/uL (0.1-0.6); Absolute Neutrophils 10.6 10^3/uL (1.4-6.5)
[2024-06-16 13:39] LABS: Absolute Immature Granulocytes 1.4 10^3/uL (0-0.05); Nucleated Red Blood Cells % 0.3 % (-)
== END ==
LOC: REG 09:31
PROVIDERS: ATTENDING PHYSICIAN Thoracic Surgery (Cardiothoracic Vascular Surgery); FAMILY PHYSICIAN Internal Medicine
DX: N18.31 Chronic kidney disease, stage 3a (principal); C91.10 Chronic lymphocytic leukemia of B-cell type not having achieved remission
CPT/HCPCS: 36415; 80048; 85025

== ENCOUNTER 2024-07-26 14:04 | Outpatient (RCR) | payer MEDICARE, SELFPAY | END 2024-07-26 23:59 | disposition home or self-care (01) | LOC: CRHB 14:04 | PROVIDERS: ATTENDING PHYSICIAN Student in an Organized Health Care Education/Training Program | DX: I25.10 Atherosclerotic heart disease of native coronary artery without angina pectoris (principal); Z95.1 Presence of aortocoronary bypass graft | CPT/HCPCS: G0422; G0423 ==

== ENCOUNTER 2024-08-27 14:59 | Outpatient (RCR) | payer MEDICARE, SELFPAY | END 2024-08-27 23:59 | disposition home or self-care (01) | LOC: CRHB 14:59 | PROVIDERS: ATTENDING PHYSICIAN Internal Medicine; FAMILY PHYSICIAN Internal Medicine | DX: Z95.1 Presence of aortocoronary bypass graft (principal) | CPT/HCPCS: G0422; G0423 ==

== ENCOUNTER → 2024-09-02 13:22 | Outpatient (REF) | payer MEDICARE, SELFPAY ==
[2024-09-02 14:09] LABS: Hematocrit 40.3 % (39.0-52.0); Hemoglobin 12.3 g/dL (13.0-18.0); Mean Corp Hgb Conc. 30.5 g/dL (33.0-37.0); Mean Corpuscular Hgb 26.4 pg (27.0-31.0); Mean Corpuscular Volume 86.5 fL (80.0-94.0); Mean Platelet Volume 9.1 fL (7.4-10.4); Platelet Count 96 10^3/uL (130-400); Red Blood Cell Count 4.66 10^6/uL (4.70-6.10); Red Cell Dist. Width 15.8 % (11.5-14.5); White Blood Cell Count 91.4 10^3/uL (4.8-10.8)
[2024-09-02 14:19] LABS: LDH 166 U/L (120-246)
[2024-09-02 14:38] LABS: % Eosinophils 0.2 % (0-6); % Immature Granulocytes 0.6 % (0-0.5); % Lymphocytes 90.2 % (20.5-51.1); % Monocytes 2.5 % (1.7-9.3); % Neutrophils 6.5 % (42.2-75.2); Absolute Eosinophils 0.2 10^3/uL (0-0.7); Absolute Immature Granulocytes 0.5 10^3/uL (0-0.05); Absolute Lymphocytes 82.5 10^3/uL (1.2-3.4); Absolute Monocytes 2.3 10^3/uL (0.1-0.6); Absolute Neutrophils 5.9 10^3/uL (1.4-6.5); Nucleated Red Blood Cells % 0 % (-)
== END ==
LOC: REG 13:22
PROVIDERS: ATTENDING PHYSICIAN Internal Medicine Hematology & Oncology
DX: C91.10 Chronic lymphocytic leukemia of B-cell type not having achieved remission (principal)
CPT/HCPCS: 36415; 82784; 83521; 83615; 84155; 84165; 85025; 86334

== ENCOUNTER → 2024-09-14 14:07 | Outpatient (REF) | payer MEDICARE, SELFPAY | LOC: DHSLP 14:07 | PROVIDERS: ATTENDING PHYSICIAN Internal Medicine Critical Care Medicine; FAMILY PHYSICIAN Internal Medicine | DX: G47.33 Obstructive sleep apnea (adult) (pediatric) (principal); R09.02 Hypoxemia; G47.00 Insomnia, unspecified | CPT/HCPCS: 95810 ==

== ENCOUNTER 2024-09-24 15:23 | Outpatient (RCR) | payer MEDICARE, SELFPAY | END 2024-09-24 23:59 | disposition home or self-care (01) | LOC: CRHB 15:23 | PROVIDERS: ATTENDING PHYSICIAN Internal Medicine; FAMILY PHYSICIAN Internal Medicine | DX: Z95.1 Presence of aortocoronary bypass graft (principal) | CPT/HCPCS: G0422; G0423 ==

== ENCOUNTER 2024-10-15 16:08 | Outpatient (RCR) | payer MEDICARE, SELFPAY ==
[2024-10-05 14:27] LABS: HDL Cholesterol 33 mg/dl; LDL Cholesterol, Calculated 60 mg/dl; Total Cholesterol 115 mg/dl (50-199); Triglyceride 110 mg/dl (10-149); Very Low Density Lipoprotein 22 mg/dl (0-30)
== END 2024-10-15 23:59 | disposition home or self-care (01) ==
LOC: CRHB 16:08
PROVIDERS: ATTENDING PHYSICIAN Internal Medicine; FAMILY PHYSICIAN Internal Medicine; REFERRING PHYSICIAN Internal Medicine Cardiovascular Disease
DX: Z95.1 Presence of aortocoronary bypass graft (principal)
CPT/HCPCS: 36415; 80061; G0422; G0423

== ENCOUNTER → 2024-12-14 10:58 | Outpatient (REF) | payer MEDICARE, SELFPAY | LOC: HWRCS 10:58 | PROVIDERS: ATTENDING PHYSICIAN Internal Medicine; FAMILY PHYSICIAN Internal Medicine | DX: M79.89 Other specified soft tissue disorders (principal) | CPT/HCPCS: 93306 ==

== ENCOUNTER → 2024-12-31 11:14 | Outpatient (REF) | payer MEDICARE, SELFPAY | LOC: HWRAD 11:14 | PROVIDERS: ATTENDING PHYSICIAN Internal Medicine Critical Care Medicine; FAMILY PHYSICIAN Internal Medicine | DX: R93.89 Abnormal findings on diagnostic imaging of other specified body structures (principal) | CPT/HCPCS: 71250 ==

== ENCOUNTER → 2025-01-17 14:02 | Outpatient (REF) | payer MEDICARE, SELFPAY ==
[2025-01-17 14:42] LABS: Hematocrit 41.5 % (39.0-52.0); Hemoglobin 12.8 g/dL (13.0-18.0); Mean Corp Hgb Conc. 30.8 g/dL (33.0-37.0); Mean Corpuscular Hgb 26.7 pg (27.0-31.0); Mean Corpuscular Volume 86.6 fL (80.0-94.0); Mean Platelet Volume 8.9 fL (7.4-10.4); Platelet Count 108 10^3/uL (130-400); Red Blood Cell Count 4.79 10^6/uL (4.70-6.10)
[2025-01-17 15:47] LABS: ALT (SGPT) 34 U/L (0-50); AST (SGOT) 32 U/L (17-59); Albumin 4.6 g/dl (3.5-5.0); Alkaline Phosphatase 61 U/L (38-126); Blood Urea Nitrogen 21 mg/dl (9-20); Calcium 9.4 mg/dl (8.4-10.2); Carbon Dioxide 25 mmol/L (22-30); Chloride 110 mmol/L (98-107); Glucose 76 mg/dl (70-99); HDL Cholesterol 31 mg/dl; LDH 178 U/L (120-246); LDL Cholesterol, Calculated 59 mg/dl; Potassium 4.5 mmol/L (3.5-5.1); Sodium 142 mmol/L (135-145); Total Bilirubin 0.9 mg/dl (0.2-1.3); Total Cholesterol 109 mg/dl (50-199); Total Protein 6.2 g/dl (6.3-8.2); Triglyceride 95 mg/dl (10-149); Very Low Density Lipoprotein 19 mg/dl (0-30); eGFR 50.08
[2025-01-17 16:10] LABS: PSA, Total - Screen 0.94 ng/ml (0.0-4.0)
[2025-01-17 17:46] LABS: % Basophils 0.1 % (0-2); % Eosinophils 0.1 % (0-6); % Immature Granulocytes 0.3 % (0-0.5); % Lymphocytes 94.2 % (20.5-51.1); % Monocytes 3.5 % (1.7-9.3); % Neutrophils 1.8 % (42.2-75.2); Absolute Basophils 0.1 10^3/uL (0-0.2); Absolute Eosinophils 0.2 10^3/uL (0-0.7); Absolute Immature Granulocytes 0.5 10^3/uL (0-0.05); Absolute Lymphocytes 143.3 10^3/uL (1.2-3.4); Absolute Monocytes 5.4 10^3/uL (0.1-0.6); Absolute Neutrophils 2.6 10^3/uL (1.4-6.5); Nucleated Red Blood Cells % 0 % (-)
== END ==
LOC: REG 14:02
PROVIDERS: ATTENDING PHYSICIAN Internal Medicine; FAMILY PHYSICIAN Internal Medicine; REFERRING PHYSICIAN Internal Medicine Hematology & Oncology
DX: C91.10 Chronic lymphocytic leukemia of B-cell type not having achieved remission (principal); D80.1 Nonfamilial hypogammaglobulinemia; I21.4 Non-ST elevation (NSTEMI) myocardial infarction; Z95.1 Presence of aortocoronary bypass graft; N28.9 Disorder of kidney and ureter, unspecified; G47.33 Obstructive sleep apnea (adult) (pediatric); E78.00 Pure hypercholesterolemia, unspecified; Z00.00 Encounter for general adult medical examination without abnormal findings; Z12.5 Encounter for screening for malignant neoplasm of prostate
CPT/HCPCS: 36415; 80053; 80061; 83615; 85025; G0103

== ENCOUNTER → 2025-04-04 14:45 | Outpatient (REF) | payer MEDICARE, SELFPAY ==
[2025-04-04 16:20] LABS: Hematocrit 38.9 % (39.0-52.0); Hemoglobin 12.1 g/dL (13.0-18.0); Mean Corp Hgb Conc. 31.1 g/dL (33.0-37.0); Mean Corpuscular Volume 88.0 fL (80.0-94.0); Platelet Count 107 10^3/uL (130-400); Red Cell Dist. Width 16.5 % (11.5-14.5)
[2025-04-04 16:33] LABS: Albumin 4.7 g/dl (3.5-5.0); Blood Urea Nitrogen 22 mg/dl (9-20); Calcium 9.7 mg/dl (8.4-10.2); Carbon Dioxide 27 mmol/L (22-30); Chloride 105 mmol/L (98-107); Glucose 90 mg/dl (70-99); Potassium 4.8 mmol/L (3.5-5.1); Sodium 139 mmol/L (135-145); eGFR 50.08
[2025-04-04 16:37] LABS: LDH 190 U/L (120-246)
[2025-04-04 17:57] LABS: Nucleated Red Blood Cells % 0 % (-)
== END ==
LOC: REG 14:45
PROVIDERS: ATTENDING PHYSICIAN Internal Medicine Hematology & Oncology; FAMILY PHYSICIAN Internal Medicine
DX: C91.10 Chronic lymphocytic leukemia of B-cell type not having achieved remission (principal); D80.1 Nonfamilial hypogammaglobulinemia; N18.1 Chronic kidney disease, stage 1
CPT/HCPCS: 36415; 80069; 82784; 83615; 85025

== ENCOUNTER → 2025-07-07 13:08 | Outpatient (REF) | payer MEDICARE, SELFPAY ==
[2025-07-07 14:41] LABS: Hematocrit 37.1 % (39.0-52.0); Hemoglobin 10.8 g/dL (13.0-18.0); Mean Corp Hgb Conc. 29.1 g/dL (33.0-37.0); Mean Corpuscular Volume 94.6 fL (80.0-94.0); Platelet Count 78 10^3/uL (130-400); Red Cell Dist. Width 17.9 % (11.5-14.5)
[2025-07-07 15:36] LABS: Nucleated Red Blood Cells % 0 % (-)
== END ==
LOC: REG 13:08
PROVIDERS: ATTENDING PHYSICIAN Internal Medicine Hematology & Oncology; FAMILY PHYSICIAN Internal Medicine
DX: C91.10 Chronic lymphocytic leukemia of B-cell type not having achieved remission (principal); D80.1 Nonfamilial hypogammaglobulinemia
CPT/HCPCS: 36415; 85025

== ENCOUNTER → 2025-07-14 11:49 | Outpatient (REF) | payer MEDICARE, SELFPAY ==
[2025-07-14 13:24] LABS: Hematocrit 34.8 % (39.0-52.0); Hemoglobin 10.6 g/dL (13.0-18.0); Mean Corp Hgb Conc. 30.5 g/dL (33.0-37.0); Mean Corpuscular Volume 91.6 fL (80.0-94.0); Platelet Count 69 10^3/uL (130-400); Red Cell Dist. Width 17.9 % (11.5-14.5)
[2025-07-14 13:45] LABS: ALT (SGPT) 24 U/L (0-50); AST (SGOT) 27 U/L (17-59); Albumin 4.4 g/dl (3.5-5.0); Alkaline Phosphatase 57 U/L (38-126); Blood Urea Nitrogen 21 mg/dl (9-20); Calcium 9.2 mg/dl (8.4-10.2); Carbon Dioxide 23 mmol/L (22-30); Chloride 107 mmol/L (98-107); Glucose 86 mg/dl (70-99); Iron 95 ug/dl (49-181); LDH 191 U/L (120-246); Potassium 4.5 mmol/L (3.5-5.1); Sodium 137 mmol/L (135-145); Total Protein 6.2 g/dl (6.3-8.2); Uric Acid 5.0 mg/dl (3.5-8.5); eGFR > 60.00
[2025-07-14 13:54] LABS: Total Iron Binding Capacity 428 ug/dl (261-462)
[2025-07-14 14:49] LABS: Nucleated Red Blood Cells % 0.1 % (-); Reticulocyte Count 1.7 % (0.4-2.8)
[2025-07-14 16:26] LABS: Ferritin 54.9 ng/ml (17.9-464.0)
[2025-07-14 16:57] LABS: Folate 8.9 ng/ml (2.76-20); Vitamin B12 392 pg/ml (239-931)
== END ==
LOC: REG 11:49
PROVIDERS: ATTENDING PHYSICIAN Internal Medicine Hematology & Oncology; FAMILY PHYSICIAN Internal Medicine
DX: C91.10 Chronic lymphocytic leukemia of B-cell type not having achieved remission (principal); D80.1 Nonfamilial hypogammaglobulinemia; R53.83 Other fatigue; J98.11 Atelectasis; N17.9 Acute kidney failure, unspecified
CPT/HCPCS: 36415; 80053; 82607; 82728; 82746; 82784; 83010; 83540; 83550; 83615; 84550; 85025; 85045; 86880